=== PATIENT | male | born 1975 | race Caucasian/White ===

== ENCOUNTER 2020-08-13 02:03 | Emergency (ER) | payer OTHER, MEDICAID, SELFPAY ==
[2020-08-13 02:11] VITALS: BP 131/72; PULSE 75; RESP 16; TEMP 36.8; O2SAT 99; BMI 28.8
--- NOTE | 2020-08-13 02:15 | ECG_ITS ---
Test Reason : CHEST PAIN Blood Pressure : / mmHG Vent. Rate : 073 BPM Atrial Rate : 073 BPM P-R Int : 148 ms QRS Dur : 092 ms QT Int : 408 ms P-R-T Axes : 052 020 030 degrees QTc Int : 449 ms Normal sinus rhythm Normal ECG When compared with ECG of 23-AUG-2019 21:38, Premature ventricular complexes are no longer Present Criteria for Inferior infarct are no longer Present Referred By: Wili Canada Electronically Signed By:COLLINS FERNANDO MD
--- NOTE | 2020-08-13 02:15 | XR_ITS ---
EXAMINATION: XR CHEST CLINICAL INFORMATION: Chest pain COMPARISON: None TECHNIQUE: Frontal view of the chest was obtained. FINDINGS: Cardiac leads overlie the chest. The lungs are well expanded. There is no focal consolidation, edema, or effusion. No pneumothorax. The cardiomediastinal silhouette is within normal limits. No acute osseous abnormality. IMPRESSION: No acute pulmonary finding.
[2020-08-13 02:27] LABS: Basophils Percent Auto 0.3 % (0-2); Eosinophils Absolute Auto 0.1 X10*3/uL (0.0-0.4); Hematocrit 45.9 % (42-52); Hemoglobin 15.8 g/dl (14.0-18.0); Imm Gran Abs Auto 0.01 X10*3/uL (0.00-0.03); Imm Gran Pct Auto 0.1 % (0.0-0.4); Lymphocytes Absolute Auto 2.6 X10*3/uL (1.2-4.9); Lymphocytes Percent Auto 38.1 % (20-40); MANUAL DIFF FLAG NO; Mean Corpuscular HGB Conc 34.4 g/dl (31.0-36.0); Mean Corpuscular Hemoglobin 31.9 pg (27.0-33.0); Mean Corpuscular Volume 92.7 fL (80-98); Mean Platelet Volume 8.7 fL (9.4-12.4); Monocytes Absolute Auto 0.8 X10*3/uL (0.1-1.2); Monocytes Percent Auto 11.5 % (2-11); Neutrophils Absolute Auto 3.3 X10*3/uL (2.0-8.3); Platelet Count 195 X10*3/uL (160-400); Red Blood Count 4.95 X10*6/uL (4.60-5.80); Red Cell Distribution Width 11.9 % (11.0-16.0); White Blood Count 6.7 X10*3/uL (4.8-10.8)
--- NOTE | 2020-08-13 02:45 | ED.CHESTPAIN ---
HPI - Chest Pain General Chief Complaint: Chest Pain Stated Complaint: chest pain Time Seen by Provider: 08/13/20 02:15 Mode of arrival: ambulatory History of Present Illness HPI narrative: patient states of intermittent chest pain for the past several months in which he is seeing cardiology for. Patient states chest pain has been intermittent all week. Woke up this evening with substernal chest pain came into emergency department upon arrival to emergency department chest pain resolved. Nonradiating chest pain no nausea no vomiting no diarrhea no diaphoresis Onset: during rest Pain location: substernal Pain radiation: none Severity: moderate Pain scale (0-10): 4 Related Data Allergies Allergy/AdvReac Type Severity Reaction Status Date / Time No Known Allergies Allergy Unverified 07/20/20 17:53 Review of Systems Review of Systems: Constitutional : No Weight loss, No Fever, No Chills, No Night Sweats, No Fatigue, No Malaise ENT/Mouth : No Hearing loss, No Ear Pain, No Nasal Congestion, No Sinus Pain, No Hoarseness, No sore throat, No Rhinorrhea, No Swallowing Difficulty Eyes: No Eye Pain, No Swelling, No Redness, No Foreign Body, No Discharge, No Vision Changes Cardiovascular : pos Chest Pain, pos SOB, no Dyspnea on Exertion, No Orthopnea, No Edema, No Palpitations Respiratory : No Cough, No Sputum, No Wheezing, No Smoke Exposure, No Dyspnea Gastrointestinal : pos Nausea, No Vomiting, No Diarrhea, No abdominal Pain, No Hematochezia, No Melena Genitourinary : No irregular bleeding, No Dysuria, No Urinary Frequency, No Hematuria, No Urinary Incontinence, No Urgency, No Flank Pain, No Urinary Flow Changes, No Hesitancy Musculoskeletal : No joint pain, No Myalgias, No Joint Swelling Skin : No Skin Lesions, No rash Neuro : No Weakness, No Numbness, No Paresthesias, No Loss of Consciousness, No Dizziness, No Headache Psych : No Anxiety/Panic, No Depression, No SI/HI/AH/VH Heme/Lymph: No Bruising, No Bleeding,No Lymphadenopathy Endocrine : No Polyuria, No Polydipsia, No Temperature Intolerance PMFSH Past Medical History Medical History HTN (hypertension) Family History Family History (Updated 08/13/20 @ 02:47 by Wili Canada DO) Other Family history non-contributory Social History Social History Alcohol intake: never Smoking Status: Smoker, status unknown Smoked in Last 30 Days: No Advance Directives: No Advance Directives Information Provided: No Physical Exam Vital Signs: Vital Signs: Vital Signs Temp Pulse Resp BP Pulse Ox 08/13/20 02:11 98.2 F 75 16 131/72 99 Body Mass Index 28.8 vital signs reviewed 99% room air interpreted by me as normal Appearance: Alert. Oriented X3. No acute distress. Eyes: Pupils equal, round and reactive to light. ENT: Pharynx normal. Neck: Normal inspection. Neck supple. No lymph nodes noted. No crepitus CVS: Normal heart rate and rhythm. Pulses normal. Normal S1 and S2 Respiratory: No respiratory distress. Breath sounds normal. No Wheezing. No rales Abdomen: Soft and nontender. No rigidity. No distention. good BS x4 Skin: Skin warm and dry. Normal skin color. Normal skin turgor. Extremities: No lower extremity edema. Neurovascular intact to all extremities. No Lacerations. No Rash Neuro: Oriented X 3. No motor deficit. No sensory deficit. Moving all extermities. No slurred speech.
[2020-08-13 03:56] LABS: Alanine Aminotransferase 38 U/L (0-40); Albumin Level 4.6 g/dL (3.5-5.0); Alkaline Phosphatase 30 U/L (39-117); Anion Gap 15 (12-20); Aspartate Amino Transferase 23 U/L (5-37); Bilirubin Direct 0.2 mg/dL (0.0-0.5); Bilirubin Total 0.6 mg/dL (0.0-1.0); Blood Urea Nitrogen 19 mg/dL (9-16); Calcium 8.8 mg/dL (8.4-10.2); Carbon Dioxide 24 mmol/L (22-29); Chloride 103 mmol/L (96-108); Creatinine Clr Calc Pharmacy 101.6; Estimated Glomerular Filt Rate > 60; Glucose Random 122 mg/dL (60-115); Lipase 57 U/L (8-78); Potassium 3.6 mmol/l (3.3-5.1); Sodium 138 mmol/L (135-145); Total Protein 7.1 g/dL (6.5-8.0)
[2020-08-13 03:59] LABS: Troponin-I High Sensitivity < 3.5 ng/L (<3.5-35.0)
[2020-08-13 04:16] VITALS: BP 137/83; PULSE 58; RESP 18; O2SAT 98
--- NOTE | 2020-08-13 04:16 | ED.CHESTPAIN ---
HPI - Chest Pain General Chief Complaint: Chest Pain Stated Complaint: chest pain Time Seen by Provider: 08/13/20 02:15 Source: patient Mode of arrival: ambulatory History of Present Illness HPI narrative: patient states of chest pain for the past 2-3 days. However states it has been more constant. Denies not the vomiting diarrhea denies diaphoresis denies dizziness. Patient states substernal nonradiating worse with palpation past couple hours now MD complaint: chest pain Timing of current episode: constant Pain location: substernal Pain radiation: none Exacerbating factors: nothing Related Data Allergies Allergy/AdvReac Type Severity Reaction Status Date / Time No Known Allergies Allergy Unverified 07/20/20 17:53 Review of Systems Review of Systems: Constitutional : No Weight loss, No Fever, No Chills, No Night Sweats, No Fatigue, No Malaise ENT/Mouth : No Hearing loss, No Ear Pain, No Nasal Congestion, No Sinus Pain, No Hoarseness, No sore throat, No Rhinorrhea, No Swallowing Difficulty Eyes: No Eye Pain, No Swelling, No Redness, No Foreign Body, No Discharge, No Vision Changes Cardiovascular : pos Chest Pain, pos SOB, no Dyspnea on Exertion, No Orthopnea, No Edema, No Palpitations Respiratory : No Cough, No Sputum, No Wheezing, No Smoke Exposure, No Dyspnea Gastrointestinal : pos Nausea, No Vomiting, No Diarrhea, No abdominal Pain, No Hematochezia, No Melena Genitourinary : No irregular bleeding, No Dysuria, No Urinary Frequency, No Hematuria, No Urinary Incontinence, No Urgency, No Flank Pain, No Urinary Flow Changes, No Hesitancy Musculoskeletal : No joint pain, No Myalgias, No Joint Swelling Skin : No Skin Lesions, No rash Neuro : No Weakness, No Numbness, No Paresthesias, No Loss of Consciousness, No Dizziness, No Headache Psych : No Anxiety/Panic, No Depression, No SI/HI/AH/VH Heme/Lymph: No Bruising, No Bleeding,No Lymphadenopathy Endocrine : No Polyuria, No Polydipsia, No Temperature Intolerance [facility], [facility] Past Medical History Medical History HTN (hypertension) Family History Family History (Updated 08/13/20 @ 02:47 by Wili Canada DO) Other Family history non-contributory Social History Social History Alcohol intake: never Smoking Status: Smoker, status unknown Smoked in Last 30 Days: No Advance Directives: No Advance Directives Information Provided: No Physical Exam Vital Signs: Vital Signs: Vital Signs Temp Pulse Resp BP Pulse Ox 08/13/20 04:16 58 18 137/83 98 08/13/20 02:11 98.2 F 75 16 131/72 99 Body Mass Index 28.8 vital signs reviewed pulse ox 99% room air on room air interpreted as normal by me Appearance: Alert. Oriented X3. No acute distress. Eyes: Pupils equal, round and reactive to light. ENT: Pharynx normal. Neck: Normal inspection. Neck supple. No lymph nodes noted. No crepitus CVS: Normal heart rate and rhythm. Pulses normal. Normal S1 and S2 Respiratory: No respiratory distress. Breath sounds normal. No Wheezing. No rales Abdomen: Soft and nontender. No rigidity. No distention. good BS x4 Skin: Skin warm and dry. Normal skin color. Normal skin turgor. Extremities: No lower extremity edema. Neurovascular intact to all extremities. No Lacerations. No Rash { right upper hand with slight edema no erythema healing abrasion and puncture wounds. Located to the dorsum} Neuro: Oriented X 3. No motor deficit. No sensory deficit. Moving all extermities. No slurred speech. MDM - Chest Pain Medical Records Data Attestation: I reviewed the patient's medical records. Lab Data Attestation: I reviewed the patient's lab results. Result diagrams: 08/13/20 02:20 08/13/20 02:20 Labs: Lab Results 08/13/20 08/13/20 08/13/20 Range/Units 02:20 02:20 02:20 WBC 6.7 (4.8-10.8) X10*3/uL RBC 4.95 (4.60-5.80) X10*6/uL Hgb 15.8 (14.0-18.0) g/dl Hct 45.9 (42-52) % MCV 92.7 (80-98) fL MCH 31.9 (27.0-33.0) pg MCHC 34.4 (31.0-36.0) g/dl RDW 11.9 (11.0-16.0) % Plt Count 195 (160-400) X10*3/uL MPV 8.7 L (9.4-12.4) fL Immature Gran % (Auto) 0.1 (0.0-0.4) % Neut % (Auto) 49.0 (45-73) % Lymph % (Auto) 38.1 (20-40) % Braxton % (Auto) 11.5 H (2-11) % Eos % (Auto) 1.0 (0-4) % Baso % (Auto) 0.3 (0-2) % Lymph # (Auto) 2.6 (1.2-4.9) X10*3/uL Braxton # (Auto) 0.8 (0.1-1.2) X10*3/uL Eos # (Auto) 0.1 (0.0-0.4) X10*3/uL Baso # (Auto) 0.0 (0.0-0.2) X10*3/uL Abs Immat Gran (auto) 0.01 (0.00-0.03) X10*3/uL Absolute Neuts (auto) 3.3 (2.0-8.3) X10*3/uL Absolute Nucleated RBC 0.000 (0.0-0.012) X10*3/uL Nucleated RBC % (auto) 0.0 (0.0-0.2) /100WBC Sodium 138 (135-145) mmol/L Potassium 3.6 (3.3-5.1) mmol/l Chloride 103 (96-108) mmol/L Carbon Dioxide 24 (22-29) mmol/L Anion Gap 15 (12-20) BUN 19 H (9-16) mg/dL Creatinine 0.96 (0.5-1.4) mg/dL Estim Creat Clear Calc 101.6 Estimated GFR > 60 Random Glucose 122 H (60-115) mg/dL Calcium 8.8 (8.4-10.2) mg/dL Total Bilirubin 0.6 (0.0-1.0) mg/dL Direct Bilirubin 0.2 (0.0-0.5) mg/dL AST 23 (5-37) U/L ALT 38 (0-40) U/L Alkaline Phosphatase 30 L (39-117) U/L Troponin I High Sens < 3.5 (<3.5-35.0) ng/L Total Protein 7.1 (6.5-8.0) g/dL Albumin 4.6 (3.5-5.0) g/dL Lipase 57 (8-78) U/L ECG Data ECG #1: Attestation: I personally reviewed and interpreted this ECG as follows: Interpretation: normal sinus rhythm. 73 beats per minute. Leftward axis. Normal ST-T segments Discharge Plan Discharge Clinical Impression: Costochondritis, Chest wall pain Patient Disposition: Home, Self-Care Instructions: Chest Pain (ED), Costochondritis (ED) Additional Instructions: Thank you for visiting the emergency department today. If your symptoms worsen or do not resolve completely please return to the emergency department immediately or call 911. if he have any questions please call your primary care physician Referrals: [facility] [Provider Group] - 2 days Interventions: ED Discharge Assessment Last Done: 08/13/20 04:48 Discharge Date/Time: 08/13/20 04:48
== END 2020-08-13 04:48 | disposition home or self-care (01) ==
PROVIDERS: Emergency Provider Emergency Medicine; PCP Physician Assistant Medical
DX: M94.0 Chondrocostal junction syndrome [Tietze] (principal); R07.89 Other chest pain; I10 Essential (primary) hypertension
CPT/HCPCS: 36415; 71045; 80048; 80076; 83690; 84484; 85025; 93005; 99283; 99285

== ENCOUNTER 2020-09-27 12:45 | Outpatient (REF) | payer OTHER, SELFPAY | END 2020-09-27 12:46 | disposition home or self-care (01) | LOC: HO.LAB 12:45 | PROVIDERS: Visit Provider Internal Medicine | DX: Z20.828 Contact with and (suspected) exposure to other viral communicable diseases (principal) | CPT/HCPCS: C9803; U0003 ==

== ENCOUNTER 2020-11-16 16:42 | Outpatient (REF) | payer OTHER, SELFPAY | END 2020-11-16 16:43 | disposition home or self-care (01) | LOC: HO.LAB 16:42 | PROVIDERS: Visit Provider Internal Medicine | DX: Z20.822 Contact with and (suspected) exposure to COVID-19 (principal) | CPT/HCPCS: 36415; C9803; U0003 ==

== ENCOUNTER 2021-01-02 11:13 | Emergency (ER) | payer OTHER, MEDICAID, SELFPAY ==
--- NOTE | ~2021-01-02 | XR_ITS ---
EXAMINATION: XR CHEST CLINICAL INFORMATION: Chest wall pain COMPARISON: Chest x-ray on 08/13/2020 TECHNIQUE: 2 views of the chest were obtained. FINDINGS: No significant abnormality is noted involving the heart, lungs, mediastinum, bony thorax or soft tissues. XR/XR chest 2V IMPRESSION: Unremarkable examination.
[2021-01-02 11:17] VITALS: BP 144/83; PULSE 74; RESP 16; TEMP 36.4; O2SAT 97; BMI 28.1
--- NOTE | 2021-01-02 13:07 | ED_ITS ---
HPI - General Adult General Chief complaint: General Medical Stated complaint: rib pain Time Seen by Provider: 01/02/21 11:38 Source: patient Mode of arrival: ambulatory Limitations: language barrier (Primarily [place]-speaking thus regulator operator present for all interactions) History of Present Illness HPI narrative: This is a pleasant 45-year-old male who is primarily [place]- speaking with history of hypertension who presents ambulatory via triage with complaint of pain to the picture/sternal region of his chest that has been going on for past 6 months. 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 And has been seen by his primary care doctor for this who did a workup as well as referred him to [facility] where he reports he was seen at [facility] a month ago and had cardiac workup in told by cardiology at [facility] that this was not cardiac related and referral was made to PT for patient states he has an appointment coming up on the 11 of this month however still when he does certain movements at work he gets this pain thus leading to him coming here today. There is no cough or URI, no lower extremity swelling, no shortness of breath. No dyspnea on exertion. Onset (ago): month(s) (6+ months. ) Location: chest Radiation: non-radiation Severity: mild Severity scale (1-10): 3 Quality: aching (Only during certain activities where he is lifting boxes at work but none at this time at rest.) Pain Consistency: intermittent and now resolved Relieving factors: cold therapy and immobilization Exacerbating factors: movement Associated symptoms: denies other symptoms Treatments prior to arrival: NSAID (States he has been given naproxen by his primary care doctor which she takes sometimes.) Related Data Previous Rx's Medication Instructions Recorded cyclobenzaprine 5 mg PO BEDTIME PRN #14 tab 01/02/21 methylprednisolone [Methylpred DP] 4 mg PO PER PKG DIR #21 ea 01/02/21 Allergies Allergy/AdvReac Type Severity Reaction Status Date / Time No Known Allergies Allergy Unverified 07/20/20 17:53 Review of Systems Review of Systems: Constitutional: No Weight loss, No Fever, No Chills, No Night Sweats, No Fatigue, No Malaise ENT/Mouth: No Hearing loss, No Ear Pain, No Nasal Congestion, No Sinus Pain, No Hoarseness, No sore throat, No Rhinorrhea, No Swallowing Difficulty Eyes: No Eye Pain, No Swelling, No Redness, No Foreign Body, No Discharge, No Vision Changes Cardiovascular: Chest wall pain as noted per HPI, No SOB, No Dyspnea on Exertion, No Orthopnea, No Edema, No Palpitations Respiratory: No Cough, No Sputum, No Wheezing, No Smoke Exposure, No Dyspnea Gastrointestinal: No Nausea, No Vomiting, No Diarrhea, No Constipation, No abdominal Pain, No Hematochezia, No Melena Genitourinary: No Dysuria, No Urinary Frequency, No Hematuria, No Urinary Incontinence, No Urgency, No Flank Pain, No Urinary Flow Changes, No Hesitancy Musculoskeletal: No joint pain, No Myalgias, No Joint Swelling Skin: No Skin Lesions, No rash Neuro: No Weakness, No Numbness, No Paresthesias, No Loss of Consciousness, No Dizziness, No Headache Psych: + Anxiety about his health sometimes, No Depression, No SI/HI/AH/VH, No Social Issues Heme/Lymph: No Bruising, No Bleeding,No Lymphadenopathy Endocrine: No Polyuria, No Polydipsia, No Temperature Intolerance Yes all other systems are reviewed and are negative [facility] Past Medical History Medical History HTN (hypertension) Family History Family History (Updated 08/13/20 @ 02:47 by Wili Canada DO) Other Family history non-contributory Social History Social History Alcohol intake: never Smoking Status: Smoker, status unknown Advance Directives: No Advance Directives Information Provided: No Physical Exam Vital Signs: Vital Signs: Last Vital Signs Temp 97.6 F 01/02/21 11:17 Pulse 74 01/02/21 11:17 Resp 16 01/02/21 11:17 BP 144/83 H 01/02/21 11:17 Pulse Ox 97 01/02/21 11:17 Body Mass Index 28.1 Reviewed Const: General: cooperative and healthy appearing; No acute distress or intoxicated appearing Nutritional Appearance: average body habitus Orientation/consciousness: patient oriented x3 HENMT: Head: Yes normal to inspection Ears: hearing grossly normal bilaterally Eyes: General: appearance normal, both eyes and all related structures Visual Barrientos: normal visual barrientos by confrontation Neck: Neck: Yes normal visual inspection, No positive Brudzinski's sign, No positive Kernig's sign and No tender Thyroid: Thyroid normal Chest: Chest palpation & inspection: normal inspection of the chest and tenderness (Reproducible palpation and exercises during exam involving pectoral muscle) pectoral muscle, sternum and costochondral junction Resp: Effort & Inspection: normal respiratory effort Auscultation: clear to auscultation bilaterally Cardio: Jugular venous distension: no JVD Palpation: normal PMI Rate: regular rate Rhythm: regular rhythm Heart sounds: S1 normal heart sound present and S2 normal heart sound present GI: Inspection: Yes normal to inspection Palpation (GI): Soft to palpation Percussion: Yes normal to percussion Auscultation: normal bowel sounds : General: Yes no CVA tenderness Back/Spine/Pelvis: Back: no CVA tenderness Skin: General skin exam: no rashes or lesions noted Neuro: General: patient oriented x3 Extrem: General: Yes normal to inspection Medical Decision Making MDM Narrative Medical decision making narrative: A P of 45-year-old male with history of hypertension on monotherapy blood pressure well controlled presenting with findings consistent with costochondritis which he contributes to repetitive movement at work he has had workup here in August for same as well he reports recently through his primary care doctor and Cardiology at [facility] these records are requested with patient's consent however chest x-ray and EKG are nondiagnostic here given the exam findings this is consistent with costochondritis. Will add on short course steroid and muscle relaxant he has PT appointment coming up apparently at [facility] on the 11 of January (in 9 days). In the meantime he will follow-up with his primary care doctor as well as [facility] for further management. At this time no indication to do any additional cardiac workup. He is PERC negative, heart rate 74, pulse ox 98% without any upper respiratory symptoms, well as negative. Medical Records Medical records reviewed: Yes I reviewed the patient's medical records. Medical records narrative: Patient was here on August 13 for similar complaint he had a full cardiac workup including EKG, chest x-ray and cardiac enzymes which was overall unrevealing. 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 FINDINGS: No significant abnormality is noted involving the heart, lungs, mediastinum, bony thorax or soft tissues. XR/XR chest 2V IMPRESSION: Unremarkable examination. Dictated By:DEREK JUAREZ MDSigned By:<Electronically signed by DEREK JUAREZ MD in OV>01/02/21 1205 DD/ 1150TD/TT: Proofing Machine Operator: RAFAELA ECG Data Interpretation: Normal sinus rhythm Normal ECG Rate 60 When compared with ECG of 13-AUG-2020 02:03, No significant change was found Discharge Plan Discharge Clinical Impression: Costochondritis Patient Disposition: Home, Self-Care Instructions: Costochondritis (ED) Additional Instructions: Please follow-up with your primary care doctor as well as your upcoming appointment at [facility] on the 11 of January Follow-up with [facility] as discussed Taking naproxen as prescribed I will start a short course of steroid to help with inflammation and pain You can also take a muscle relaxant at night as needed (Flexeril) however do not take this medication before working or operating motor vehicle. Return if any concerns or worsening symptoms Follow-up as planned Thank you Prescriptions: New methylprednisolone [Methylpred DP] 4 mg tablets,dose pack 4 mg PO PER PKG DIR Qty: 21 RF: 0 cyclobenzaprine 5 mg tablet 5 mg PO BEDTIME PRN (Reason: muscle spasm) Qty: 14 RF: 0 Referrals: Jacquelyn Arnold PA [Primary Care Provider] - 1 week
--- NOTE | 2021-01-02 13:32 | ECG_ITS ---
Test Reason : CHEST WALL PAIN Blood Pressure : / mmHG Vent. Rate : 060 BPM Atrial Rate : 060 BPM P-R Int : 148 ms QRS Dur : 082 ms QT Int : 414 ms P-R-T Axes : 026 004 017 degrees QTc Int : 414 ms Normal sinus rhythm Normal ECG When compared with ECG of 13-AUG-2020 02:03, No significant change was found Referred By: Mu Stone Electronically Signed By:MEE CORREA
== END 2021-01-02 14:20 | disposition home or self-care (01) ==
PROVIDERS: Emergency Provider Emergency Medicine; PCP Physician Assistant Medical
DX: Z04.2 Encounter for examination and observation following work accident (principal); M94.0 Chondrocostal junction syndrome [Tietze]; I10 Essential (primary) hypertension
CPT/HCPCS: 71046; 93005; 99283

== ENCOUNTER 2021-06-10 12:26 | Emergency (ER) | payer OTHER, MEDICAID, SELFPAY ==
--- NOTE | ~2021-06-10 | XR_ITS ---
EXAMINATION: XR CHEST CLINICAL INFORMATION: Right sided chest pain COMPARISON: Prior chest January 2021 TECHNIQUE: Frontal view of the chest was obtained. FINDINGS: No significant abnormality is noted involving the heart, lungs, mediastinum, bony thorax or soft tissues. XR/XR chest 1V IMPRESSION: Unremarkable examination.
[2021-06-10 12:40] VITALS: BP 128/84; PULSE 72; RESP 16; TEMP 36.4; O2SAT 98; BMI 28.1
--- NOTE | 2021-06-10 14:48 | ED_ITS ---
HPI - Chest Pain General Chief Complaint: Chest Pain Stated Complaint: Muscular pain Time Seen by Provider: 06/10/21 14:48 Source: patient Mode of arrival: ambulatory Limitations: no limitations History of Present Illness HPI narrative: Patient presents to ED for right-sided chest pain call for long time ?. Patient states chest pain is worse when he moves right upper extremity and moving torso. Denies any recent trauma to chest. Patient denies any pleuritic chest pain. Patient states right-sided chest pain for months. Related Data Previous Rx's Medication Instructions Recorded cyclobenzaprine 5 mg tablet 5 mg PO BEDTIME PRN #14 tab 01/02/21 methylprednisolone 4 mg tablets in 4 mg PO PER PKG DIR #21 ea 01/02/21 a dose pack (Methylpred DP) naproxen 500 mg tablet 500 mg PO BID PRN #20 tab 06/10/21 Allergies Allergy/AdvReac Type Severity Reaction Status Date / Time No Known Allergies Allergy Unverified 07/20/20 17:53 Review of Systems Review of Systems: Yes all other systems are reviewed and are negative Constitutional: Constitutional: Reports as per HPI and Reports no additional constitutional complaints Eyes: Eyes: Reports as per HPI and Reports no additional eye complaints ENT: Reports system reviewed and no additional complaints, except as documented and Reports as per HPI Cardiovascular: Cardiovascular: Reports as per HPI, Reports no additional cardiovascular complaints and Reports chest pain (Right-sided) Respiratory: Respiratory: Reports as per HPI and Reports no additional respiratory complaints Gastrointestinal: Gastrointestinal: Reports no additional gastrointestinal complaints Genitourinary: Genitourinary: Reports no additional male genitourinary complaints and Reports as per HPI Musculoskeletal: Musculoskeletal: Reports no additional musculoskeletal complaints and Reports as per HPI Neurologic: Reports system reviewed and no additional complaints, except as documented and Reports as per HPI Psychiatric: Psychiatric: Reports no additional psychiatric complaints and Reports as per HPI PMF Past Medical History Medical History HTN (hypertension) Family History Family History (Updated 08/13/20 @ 02:47 by Wili Canada DO) Other Family history non-contributory Social History Social History Alcohol intake: never Advance Directives: No Advance Directives Information Provided: Yes Physical Exam Vital Signs: Vital Signs: Last Vital Signs Temp 97.7 F 06/10/21 15:50 Pulse 60 06/10/21 15:50 Resp 18 06/10/21 15:50 BP 137/82 06/10/21 15:50 Pulse Ox 99 06/10/21 15:50 Body Mass Index 28.1 Const: General: cooperative, healthy appearing, comfortable, no acute distress, well developed, alert, awake and Physically active O rientation/consciousness: patient oriented x3 HENMT: Head: Yes normal to inspection and Yes No palpable skull fracture present Eyes: General: appearance normal, both eyes and all related structures Neck: Neck: Yes normal visual inspection, Yes full ROM, Yes no lymphadenopathy, Yes no meningeal signs, Yes trachea midline, Yes supple and No tender Chest: Chest palpation & inspection: normal inspection of the chest Chest/axillae images: 1. Positive for tenderness on palpation. Negative for any rash. Positive for pain of range of motion of right upper extremity and movement of torso. Resp: Effort & Inspection: normal respiratory effort and able to speak in complete sentences Auscultation: clear to auscultation bilaterally Cardio: Jugular venous distension: no JVD Heart sounds: S1 normal heart sound present and S2 normal heart sound present GI: Inspection: Yes normal to inspection and No abdominal wall ecchymosis Palpation (GI): Soft to palpation, not firm, nontender, no guarding and not rigid : General: No CVA tenderness and Yes no CVA tenderness Back/Spine/Pelvis: Back: no CVA tenderness, No CVA tenderness and No back tenderness Skin: General skin exam: no rashes or lesions noted and elasticity normal Neuro: General: patient oriented x3, gait normal, no meningeal signs and CN's II-XI intact bilaterally Cranial nerves: Yes CN's II-XII intact bilaterally Extrem: Other: Lower extremities negative for swelling, pitting edema, or calf tenderness. General: Yes normal to inspection and Yes full ROM Psych: Appearance: grossly normal, well kempt and not disheveled Course Course Course Narrative: Pain mostly muscular but will do cardiac evaluation. Reevaluation(s) Reevaluation #1: EKG negative for STEMI. Troponin negative. D-dimer negative. Perc score is 0. Chest x-ray negative for pneumonia. Awaiting for COVID swab results Time: 15:35 Reevaluation #2: COVID swab negative Time: 17:40 MDM - Chest Pain MDM Narrative Medical decision making narrative: Chest wall pain Lab Data Result diagrams: 06/10/21 15:35 06/10/21 15:35 Labs: Lab Results 06/10/21 06/10/21 06/10/21 Range/Units 15:35 15:35 15:35 WBC 6.6 (4.8-10.8) X10*3/uL RBC 5.00 (4.60-5.80) X10*6/uL Hgb 15.9 (14.0-18.0) g/dl Hct 46.3 (42-52) % MCV 92.6 (80-98) fL MCH 31.8 (27.0-33.0) pg MCHC 34.3 (31.0-36.0) g/dl RDW 12.1 (11.0-16.0) % Plt Count 195 (160-400) X10*3/uL MPV 8.6 L (9.4-12.4) fL Immature Gran % (Auto) 0.2 (0.0-0.4) % Neut % (Auto) 61.8 (45-73) % Lymph % (Auto) 29.4 (20-40) % Laurens % (Auto) 7.8 (2-11) % Eos % (Auto) 0.6 (0-4) % Baso % (Auto) 0.2 (0-2) % Lymph # (Auto) 1.9 (1.2-4.9) X10*3/uL Laurens # (Auto) 0.5 (0.1-1.2) X10*3/uL Eos # (Auto) 0.0 (0.0-0.4) X10*3/uL Baso # (Auto) 0.0 (0.0-0.2) X10*3/uL Abs Immat Gran (auto) 0.01 (0.00-0.03) X10*3/uL Absolute Neuts (auto) 4.1 (2.0-8.3) X10*3/uL Absolute Nucleated RBC 0.000 (0.0-0.012) X10*3/uL Nucleated RBC % (auto) 0.0 (0.0-0.2) /100WBC PT (9.9-13.0) SEC INR (0.9-1.1) APTT (24.1-38.0) SEC D-Dimer < 200 NG/ML Sodium 141 (135-145) mmol/L Potassium 4.5 (3.3-5.1) mmol/L Chloride 106 (96-108) mmol/L Carbon Dioxide 26 (22-29) mmol/L Anion Gap 14 (12-20) BUN 14 (9-16) mg/dL Creatinine 0.98 (0.5-1.4) mg/dL Estim Creat Clear Calc 97.2 Estimated GFR > 60 Random Glucose 92 (60-115) mg/dL Calcium 9.8 D (8.4-10.2) mg/dL Total Bilirubin 0.6 (0.0-1.0) mg/dL AST 21 (5-37) U/L ALT 31 (0-40) U/L Alkaline Phosphatase 35 L (39-117) U/L Troponin I High Sens (<3.5-35.0) ng/L Total Protein 7.5 (6.5-8.0) g/dL Albumin 4.7 (3.5-5.0) g/dL Coronavirus (PCR) (Negative) Influenza Type A (PCR) (Negative) Influenza Type B (PCR) (Negative) RSV RNA Qual (PCR) (Negative) 06/10/21 06/10/21 06/10/21 Range/Units 15:35 15:35 15:35 WBC (4.8-10.8) X10*3/uL RBC (4.60-5.80) X10*6/uL Hgb (14.0-18.0) g/dl Hct (42-52) % MCV (80-98) fL MCH (27.0-33.0) pg MCHC (31.0-36.0) g/dl RDW (11.0-16.0) % Plt Count (160-400) X10*3/uL MPV (9.4-12.4) fL Immature Gran % (Auto) (0.0-0.4) % Neut % (Auto) (45-73) % Lymph % (Auto) (20-40) % Laurens % (Auto) (2-11) % Eos % (Auto) (0-4) % Baso % (Auto) (0-2) % Lymph # (Auto) (1.2-4.9) X10*3/uL Laurens # (Auto) (0.1-1.2) X10*3/uL Eos # (Auto) (0.0-0.4) X10*3/uL Baso # (Auto) (0.0-0.2) X10*3/uL Abs Immat Gran (auto) (0.00-0.03) X10*3/uL Absolute Neuts (auto) (2.0-8.3) X10*3/uL Absolute Nucleated RBC (0.0-0.012) X10*3/uL Nucleated RBC % (auto) (0.0-0.2) /100WBC PT 12.1 (9.9-13.0) SEC INR 1.1 (0.9-1.1) APTT 35.5 (24.1-38.0) SEC D-Dimer NG/ML Sodium (135-145) mmol/L Potassium (3.3-5.1) mmol/L Chloride (96-108) mmol/L Carbon Dioxide (22-29) mmol/L Anion Gap (12-20) BUN (9-16) mg/dL Creatinine (0.5-1.4) mg/dL Estim Creat Clear Calc Estimated GFR Random Glucose (60-115) mg/dL Calcium (8.4-10.2) mg/dL Total Bilirubin (0.0-1.0) mg/dL AST (5-37) U/L ALT (0-40) U/L Alkaline Phosphatase (39-117) U/L Troponin I High Sens < 3.5 (<3.5-35.0) ng/L Total Protein (6.5-8.0) g/dL Albumin (3.5-5.0) g/dL Coronavirus (PCR) NEGATIVE (Negative) Influenza Type A (PCR) NEGATIVE (Negative) Influenza Type B (PCR) NEGATIVE (Negative) RSV RNA Qual (PCR) NEGATIVE (Negative) ECG Data ECG #1: Interpretation: Normal sinus rhythm. Ventricular rate 72. Pr interval 146. QRS 80. QTC 422. Negative STEMI Discharge Plan Discharge Clinical Impression: Atypical chest pain Patient Disposition: Home, Self-Care Instructions: Chest Pain (ED), Chest Wall Pain (ED) Additional Instructions: Return to the ED for any worsening chest pain, shortness of breath, swelling of lower extremities, calf pain, coughing up blood, dizziness, weakness, fever, or chills. EKG and troponin came back negative for heart attack. Her D-dimer came back negative for risk of blood clot. COVID swab came back negative. Chest x- ray negative for pneumonia. Please follow-up with PCP Prescriptions: New naproxen 500 mg tablet 500 mg PO BID PRN (Reason: pain) Qty: 20 RF: 0 No Action methylprednisolone [Methylpred DP] 4 mg tablets,dose pack 4 mg PO PER PKG DIR Qty: 21 RF: 0 cyclobenzaprine 5 mg tablet 5 mg PO BEDTIME PRN (Reason: muscle spasm) Qty: 14 RF: 0 Interventions: ED Discharge Assessment Last Done: 06/10/21 17:57 Discharge Date/Time: 06/10/21 17:58 Print Language: Monegasque
[2021-06-10 15:39] LABS: MANUAL DIFF FLAG NO
[2021-06-10 15:41] LABS: Basophils Percent Auto 0.2 % (0-2); Eosinophils Percent Auto 0.6 % (0-4); Hematocrit 46.3 % (42-52); Hemoglobin 15.9 g/dl (14.0-18.0); Imm Gran Abs Auto 0.01 X10*3/uL (0.00-0.03); Imm Gran Pct Auto 0.2 % (0.0-0.4); Lymphocytes Absolute Auto 1.9 X10*3/uL (1.2-4.9); Lymphocytes Percent Auto 29.4 % (20-40); Mean Corpuscular HGB Conc 34.3 g/dl (31.0-36.0); Mean Corpuscular Hemoglobin 31.8 pg (27.0-33.0); Mean Corpuscular Volume 92.6 fL (80-98); Mean Platelet Volume 8.6 fL (9.4-12.4); Monocytes Absolute Auto 0.5 X10*3/uL (0.1-1.2); Monocytes Percent Auto 7.8 % (2-11); Neutrophils Absolute Auto 4.1 X10*3/uL (2.0-8.3); Neutrophils Percent Auto 61.8 % (45-73); Platelet Count 195 X10*3/uL (160-400); Red Cell Distribution Width 12.1 % (11.0-16.0); White Blood Count 6.6 X10*3/uL (4.8-10.8)
[2021-06-10 15:46] LABS: INTERNATIONAL NORM RATIO 1.1 (0.9-1.1); Prothrombin Time 12.1 SEC (9.9-13.0)
[2021-06-10 15:49] LABS: Partial Thromboplastin Time 35.5 SEC (24.1-38.0)
[2021-06-10 15:50] VITALS: BP 137/82; PULSE 60; RESP 18; TEMP 36.5; O2SAT 99
[2021-06-10 15:57] LABS: D Dimer < 200 NG/ML
[2021-06-10 16:05] LABS: Alanine Aminotransferase 31 U/L (0-40); Albumin Level 4.7 g/dL (3.5-5.0); Alkaline Phosphatase 35 U/L (39-117); Anion Gap 14 (12-20); Aspartate Amino Transferase 21 U/L (5-37); Bilirubin Total 0.6 mg/dL (0.0-1.0); Blood Urea Nitrogen 14 mg/dL (9-16); Calcium 9.8 mg/dL (8.4-10.2); Carbon Dioxide 26 mmol/L (22-29); Chloride 106 mmol/L (96-108); Creatinine Clr Calc Pharmacy 97.2; Estimated Glomerular Filt Rate > 60; Glucose Random 92 mg/dL (60-115); Potassium 4.5 mmol/L (3.3-5.1); Sodium 141 mmol/L (135-145); Total Protein 7.5 g/dL (6.5-8.0)
[2021-06-10 16:08] LABS: Troponin-I High Sensitivity < 3.5 ng/L (<3.5-35.0)
[2021-06-10 16:25] LABS: Influenza A PCR NEGATIVE (Negative); Influenza B PCR NEGATIVE (Negative); Resp Syncy Virus RNA Qual PCR NEGATIVE (Negative); SARS COV2 PCR INHOUSE NEGATIVE (Negative)
== END 2021-06-10 17:58 | disposition home or self-care (01) ==
PROVIDERS: Physician Assistant; Emergency Provider Emergency Medicine Emergency Medical Services
DX: R07.89 Other chest pain (principal); Z20.822 Contact with and (suspected) exposure to COVID-19; I10 Essential (primary) hypertension
CPT/HCPCS: 0241U; 36415; 71045; 80053; 84484; 85025; 85379; 85610; 85730; 99283

== ENCOUNTER 2021-10-06 05:52 | Emergency (ER) | payer OTHER, MEDICAID, SELFPAY ==
--- NOTE | ~2021-10-06 | XR_ITS ---
EXAMINATION: XR CHEST CLINICAL INFORMATION: Chest pain COMPARISON: 06/10/2021 TECHNIQUE: Frontal view of the chest was obtained. FINDINGS: Normal symmetric lung volumes. No parenchymal consolidation. No pleural effusion. No pneumothorax. Cardiomediastinal silhouette and pulmonary vascularity are within normal limits. No acute osseous abnormalities. XR/XR chest 1V IMPRESSION: No acute findings.
[2021-10-06 06:14] VITALS: BP 126/83; PULSE 63; RESP 18; TEMP 36.3; O2SAT 99; BMI 28.8
--- NOTE | 2021-10-06 06:19 | ECG_ITS ---
Test Reason : cp Blood Pressure : / mmHG Vent. Rate : 066 BPM Atrial Rate : 066 BPM P-R Int : 154 ms QRS Dur : 088 ms QT Int : 402 ms P-R-T Axes : 031 -01 013 degrees QTc Int : 421 ms Normal sinus rhythm Normal ECG When compared with ECG of 02-JAN-2021 13:46, No significant change was found Referred By: Generic ED Physician Electronically Signed By:MEE CORREA
[2021-10-06 06:33] LABS: MANUAL DIFF FLAG NO
[2021-10-06 06:34] LABS: Basophils Percent Auto 0.2 % (0-2); Eosinophils Absolute Auto 0.1 X10*3/uL (0.0-0.4); Eosinophils Percent Auto 2.2 % (0-4); Hematocrit 45.6 % (42.0-52.0); Hemoglobin 15.7 g/dl (14.0-18.0); Imm Gran Abs Auto 0.01 X10*3/uL (0.00-0.03); Imm Gran Pct Auto 0.2 % (0.0-0.4); Lymphocytes Absolute Auto 1.6 X10*3/uL (1.2-4.9); Lymphocytes Percent Auto 35.2 % (20-40); Mean Corpuscular HGB Conc 34.4 g/dl (31.0-36.0); Mean Corpuscular Hemoglobin 31.7 pg (27.0-33.0); Mean Corpuscular Volume 91.9 fL (80.0-98.0); Mean Platelet Volume 8.7 fL (9.4-12.4); Monocytes Absolute Auto 0.5 X10*3/uL (0.1-1.2); Neutrophils Absolute Auto 2.4 x10*3/uL (2.0-8.3); Neutrophils Percent Auto 52.2 % (45-73); Platelet Count 166 X10*3/uL (160-400); Red Blood Count 4.96 X10*6/uL (4.60-5.80); Red Cell Distribution Width 11.9 % (11.0-16.0); White Blood Count 4.6 X10*3/uL (4.8-10.8)
--- NOTE | 2021-10-06 06:34 | PC.NURSE ---
EKG and labs obtained by [facility].
[2021-10-06 06:46] LABS: Anion Gap 11 (12-20); Blood Urea Nitrogen 15 mg/dL (9-16); Calcium 9.4 mg/dL (8.4-10.2); Carbon Dioxide 27 mmol/L (22-29); Chloride 106 mmol/L (96-108); Creatinine Clr Calc Pharmacy 95.5; Estimated Glomerular Filt Rate > 60; Glucose Random 136 mg/dL (60-115); Sodium 140 mmol/L (135-145)
[2021-10-06 06:53] LABS: Troponin-I High Sensitivity < 3.5 ng/L (<3.5-35.0)
--- NOTE | 2021-10-06 07:33 | ED.CHESTPAIN ---
HPI - Chest Pain General Chief Complaint: Chest Pain Stated Complaint: chest pain Time Seen by Provider: 10/06/21 07:22 Source: patient Mode of arrival: ambulatory History of Present Illness HPI narrative: This is a very pleasant of 46 years old male presented to the emergency department with the dry side the chest pain reproducible with palpation, this chest pain has been ongoing is been seen by his primary care physician in this emergency department in the past for this complain MD complaint: chest pain Onset (ago): week(s) Prior episodes: Yes Onset: during rest Pain location: right chest Pain radiation: none Quality: aching Risk Factors Coronary artery disease risk factors: hypertension Related Data Previous Rx's Medication Instructions Recorded cyclobenzaprine 5 mg tablet 5 mg PO BEDTIME PRN #14 tab 01/02/21 methylprednisolone 4 mg tablets in 4 mg PO PER PKG DIR #21 ea 01/02/21 a dose pack (Methylpred DP) naproxen 500 mg tablet 500 mg PO BID PRN #20 tab 06/10/21 oxycodone 5 mg capsule 5 mg PO Q8H PRN #12 cap 10/06/21 Allergies Allergy/AdvReac Type Severity Reaction Status Date / Time No Known Allergies Allergy Unverified 07/20/20 17:53 [facility] Past Medical History Medical History HTN (hypertension) Family History Family History Other Family history non-contributory Social History Social History Alcohol intake: never Advance Directives: No Advance Directives Information Provided: Yes Physical Exam Vital Signs: Vital Signs: Last Vital Signs Temp 97.3 F 10/06/21 06:14 Pulse 63 10/06/21 06:14 Resp 18 10/06/21 06:14 BP 126/83 10/06/21 06:14 Pulse Ox 99 10/06/21 06:14 BMI result Body Mass Index 28.8 Const: Other: He looks well is not toxic-appearing General: cooperative, comfortable and no acute distress Orientation/consciousness: oriented to person, oriented to place and patient oriented x3 Limitations: no limitations HENMT: Head: Yes normal to inspection Mouth: Normal oral and palatal mucosa present Neck: Neck: Yes normal visual inspection and Yes full ROM Chest: Chest palpation & inspection: normal inspection of the chest Resp: Effort & Inspection: normal respiratory effort Cardio: Jugular venous distension: no JVD Rate: regular rate GI: Inspection: Yes normal to inspection Palpation (GI): Soft to palpation, not firm, nontender and no guarding Skin: General skin exam: no rashes or lesions noted and elasticity normal Rashes: no rashes Neuro: General: oriented to person, oriented to place and patient oriented x3 MDM - Chest Pain MDM Narrative Medical decision making narrative: his high sensitive troponin is negative after a few days or chest pain his electrocardiogram is normal chest x-ray is normal, the patient at the similar symptoms in the past, is taking anti-inflammatory Motrin and naproxen he states that these no relieving the pain, I would room a 8 oxycodone to get him through the weekend until see his PCP Lab Data Result diagrams: 10/06/21 06:27 10/06/21 06:27 Labs: Lab Results 10/06/21 10/06/21 10/06/21 Range/Units 06:27 06:27 06:27 WBC 4.6 L (4.8-10.8) X10*3/uL RBC 4.96 (4.60-5.80) X10*6/uL Hgb 15.7 (14.0-18.0) g/dl Hct 45.6 (42.0-52.0) % MCV 91.9 (80.0-98.0) fL MCH 31.7 (27.0-33.0) pg MCHC 34.4 (31.0-36.0) g/dl RDW 11.9 (11.0-16.0) % Plt Count 166 (160-400) X10*3/uL MPV 8.7 L (9.4-12.4) fL Immature Gran % (Auto) 0.2 (0.0-0.4) % Neut % (Auto) 52.2 (45-73) % Lymph % (Auto) 35.2 (20-40) % Iron % (Auto) 10.0 (2-11) % Eos % (Auto) 2.2 (0-4) % Baso % (Auto) 0.2 (0-2) % Lymph # (Auto) 1.6 (1.2-4.9) X10*3/uL Iron # (Auto) 0.5 (0.1-1.2) X10*3/uL Eos # (Auto) 0.1 (0.0-0.4) X10*3/uL Baso # (Auto) 0.0 (0.0-0.2) X10*3/uL Abs Immat Gran (auto) 0.01 (0.00-0.03) X10*3/uL Absolute Neuts (auto) 2.4 (2.0-8.3) x10*3/uL Absolute Nucleated RBC 0.000 (0.0-0.012) X10*3/uL Nucleated RBC % (auto) 0.0 (0.0-0.2) /100WBC Sodium 140 (135-145) mmol/L Potassium 4.0 (3.3-5.1) mmol/L Chloride 106 (96-108) mmol/L Carbon Dioxide 27 (22-29) mmol/L Anion Gap 11 L (12-20) BUN 15 (9-16) mg/dL Creatinine 1.01 (0.5-1.4) mg/dL Estim Creat Clear Calc 95.5 Estimated GFR > 60 Random Glucose 136 H D (60-115) mg/dL Calcium 9.4 (8.4-10.2) mg/dL Troponin I High Sens < 3.5 (<3.5-35.0) ng/L Imaging Data Chest x-ray: Radiologist's impression: XR CHEST CLINICAL INFORMATION: Chest pain COMPARISON: 06/10/2021 TECHNIQUE: Frontal view of the chest was obtained. FINDINGS: Normal symmetric lung volumes. No parenchymal consolidation. No pleural effusion. No pneumothorax.? Cardiomediastinal silhouette and pulmonary vascularity are within normal limits. No acute osseous abnormalities. XR/XR chest 1V IMPRESSION: No acute findings. ? Dictated By: EVA COKER MD Signed By: <Electronically signed by EVA COKER MD in OV> 10/06/2155 DD/ TD/TT:? [employer]: DB ECG Data ECG #1: Attestation: I personally reviewed and interpreted this ECG as follows: ECG interpretation date: 10/06/21 ECG interpretation time: 07:37 Pacemaker model: NSR 66 ST-T segment isoelectric normal intervals Discharge Plan Discharge Clinical Impression: Chest pain Patient Disposition: Home, Self-Care Instructions: Chest Pain (ED), Chest Wall Pain (ED) Prescriptions: New oxycodone 5 mg capsule 5 mg PO Q8H PRN (Reason: pain) Qty: 12 RF: 0 No Action methylprednisolone [Methylpred DP] 4 mg tablets,dose pack 4 mg PO PER PKG DIR Qty: 21 RF: 0 cyclobenzaprine 5 mg tablet 5 mg PO BEDTIME PRN (Reason: muscle spasm) Qty: 14 RF: 0 naproxen 500 mg tablet 500 mg PO BID PRN (Reason: pain) Qty: 20 RF: 0 Interventions: ED Discharge Assessment Last Done: 10/06/21 07:53 Discharge Date/Time: 10/06/21 07:54
--- NOTE | 2021-10-06 07:52 | PC.NURSE ---
care taken over at 0700, in to see pt. plan for dc. pt aware of plan of care and denied having any questions.
== END 2021-10-06 07:54 | disposition home or self-care (01) ==
PROVIDERS: Emergency Provider Emergency Medicine
DX: R07.9 Chest pain, unspecified (principal)
CPT/HCPCS: 36415; 71045; 80048; 84484; 85025; 93005; 99283; 99284

== ENCOUNTER → 2021-10-15 13:08 | Outpatient (BNVA) | payer OTHER, MEDICAID, SELFPAY | PROVIDERS: Visit Provider Anesthesiology ==

== ENCOUNTER 2021-12-25 11:55 | Emergency (ER) | payer OTHER, MEDICAID, SELFPAY ==
--- NOTE | ~2021-12-25 | XR_ITS ---
EXAMINATION: XR CHEST CLINICAL INFORMATION: Chest pain COMPARISON: Previous chest x-ray October 2021 TECHNIQUE: Frontal view of the chest was obtained. FINDINGS: No significant abnormality is noted involving the heart, lungs, mediastinum, bony thorax or soft tissues. XR/XR chest 1V IMPRESSION: Unremarkable examination.
[2021-12-25 13:00] VITALS: BP 130/66; PULSE 66; RESP 20; TEMP 36.9; O2SAT 98; BMI 28.3
--- NOTE | 2021-12-25 13:38 | ED_ITS ---
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 Patient states that he had a very brief moment of sharp pain in his middle back and the middle of his chest that resolved quickly. Patient denies any current dizziness, lightheadedness, abdominal pain, nausea, vomiting, fever, chills, blurry vision, double vision, loss of vision, chest pain, difficulty breathing, shortness of breath, back pain, night sweats, pain with urination, increased urinary frequency, increased urinary urgency, blood in his urine or stool, syncope or a near syncopal episode, recent trauma or falls, bowel incontinence, bladder incontinence, bowel retention, bladder retention, or any other complaints at this time. Patient states that he has a history of chronic costochronditis. Related Data Previous Rx's Medication Instructions Recorded methylprednisolone 4 mg tablets in 4 mg PO PER PKG DIR #21 ea 01/02/21 a dose pack (Methylpred DP) naproxen 500 mg tablet 500 mg PO BID PRN #20 tab 06/10/21 oxycodone 5 mg capsule 5 mg PO Q8H PRN #12 cap 10/06/21 baclofen 10 mg tablet 10 mg PO TID 30 Days #90 tab 10/15/21 gabapentin 400 mg capsule 400 mg PO BEDTIME 30 Days #30 cap 10/15/21 Allergies Allergy/AdvReac Type Severity Reaction Status Date / Time No Known Allergies Allergy Verified 10/15/21 13:25 Review of Systems Constitutional: Constitutional: Reports no additional constitutional complaints, Denies chills, Denies fever(s) and Denies night sweats Eyes: Eyes: Reports no additional eye complaints, Denies blurry vision, Denies change in vision, Denies diplopia, Denies eye discharge, Denies loss of vision and Denies eye pain ENT: Denies dizziness Cardiovascular: Cardiovascular: Reports no additional cardiovascular complaints, Denies chest pain, Denies lightheadedness, Denies Loss of Consciousness and Denies dyspnea Respiratory: Respiratory: Reports no additional respiratory complaints and Denies dyspnea Gastrointestinal: Gastrointestinal: Reports no additional gastrointestinal complaints, Denies abdominal pain, Denies melena, Denies hematochezia, Denies change in bowel habits and Denies change in stool character Genitourinary: Genitourinary: Reports no additional male genitourinary complaints, Denies hematuria, Denies oliguria, Denies difficulty urinating, Denies dysuria, Denies urinary frequency, Denies urinary hesitancy, Denies urinary incontinence and Denies urinary urgency Musculoskeletal: Musculoskeletal: Reports no additional musculoskeletal complaints, Denies numbness and Denies tingling Neurologic: Denies dizziness, Denies loss of vision, Denies numbness and Denies tingling Psychiatric: Psychiatric: Reports no additional psychiatric complaints Endocrine: Endocrine: Reports no additional endocrine complaints Hematologic/Lymphatic: Hematologic/Lymphatic: Reports no additional hematologic/lymphatic complaints Allergic/Immunologic: Allergic/Immunologic: Reports no additional allergic/immunologic complaints PMFSH Past Medical History Attestation statement: The following information was validated with the patient. Source: old records reviewed Medical History HTN (hypertension) Tietze syndrome Family History Family History Other Family history non-contributory Social History Social History Alcohol intake: never Advance Directives: No Advance Directives Information Provided: No Physical Exam ED Vital Signs: Vital Signs - 24 hr 12/25/21 13:00 Temperature 98.5 F Pulse Rate 66 Respiratory Rate 20 Blood Pressure 130/66 Pulse Oximetry 98 BMI result Body Mass Index 28.3 Const General: cooperative, no acute distress, alert and awake Nutritional Appearance: well nourished Orientation/consciousness: patient oriented x3 Limitations: no limitations [facility] Head: Yes normal to inspection and Yes atraumatic Ears: hearing grossly normal bilaterally and external ears normal General nose exam: Normal external nose present, no nasal discharge noted and no epistaxis Face and sinus: Yes normal facial exam, No abrasion and No laceration Mouth: Normal oral and palatal mucosa present, no drooling and no muffled voice Eyes General: appearance normal, both eyes and all related structures Periorbital: periorbital findings normal Eyelids: Yes eyelids normal Conjunctivae: conjunctivae normal Pupils: Equal, round and reactive pupils present EOM: EOMs intact bilaterally Neck Neck: Yes normal visual inspection, Yes full ROM and Yes no lymphadenopathy Chest Chest palpation & inspection: normal inspection of the chest Resp Effort & Inspection: normal respiratory effort and able to speak in complete sentences Auscultation: clear to auscultation bilaterally Cardio Rate: regular rate Rhythm: regular rhythm GI Inspection: Yes normal to inspection Neuro General: patient oriented x3 and moves all extremities Cranial nerves: Yes Equal, round and reactive pupils present Cognition (Neuro): normal cognition Motor exam (neuro): 5/5 motor strength present throughout Sensory Exam: Normal double simultaneous stimulation for sensation Coordination: [id number] test normal Extrem General: Yes normal to inspection, Yes full ROM and Yes capillary refill normal Psych Appearance: grossly normal Mental Status: mental status grossly normal Affect: normal affect Attitude: cooperative Thought process: Normal thought process present Thought content: Normal thought content present Insight: Good insight present (Psych) Medical Decision Making MDM Narrative Medical decision making narrative: Patient is a 46 year old male presenting to the emergency department today with a brief chest pain and back pain. Patient's physical exam was unremarkable. Patient's blood work was unremarkable. Patient's EKG was unremarkable. Patient's chest x-ray showed no acute process. I explained my physical exam findings as well as all test results to the patient. I answered all questions asked by the patient. I stressed the importance of the patient taking his medication as prescribed. I stressed the importance of the patient following up with his primary care provider. I stressed the importance of the patient returning to the emergency department immediately if his symptoms were to worsen or if he were to develop any dizziness, shortness of breath, difficulty breathing, chest pain, blurry vision, loss of vision, nausea, vomiting, abdominal pain, fever, chills, back pain, or any other complaints. Patient verbalized agreement and understanding with this treatment plan and discharge. Differential Diagnosis Differential Diagnosis: costochondritis, back pain, atyical chest pain Medical Records Medical records reviewed: Yes I reviewed the patient's medical records. Lab Data Lab results reviewed: Yes I reviewed the patient's lab results. Result diagrams: 12/25/21 14:24 12/25/21 14:24 Labs: Lab Results 12/25/21 12/25/21 12/25/21 Range/Units 14:24 14:24 14:24 WBC 6.1 (4.8-10.8) X10*3/uL RBC 4.99 (4.60-5.80) X10*6/uL Hgb 15.7 (14.0-18.0) g/dl Hct 45.5 (42.0-52.0) % MCV 91.2 (80.0-98.0) fL MCH 31.5 (27.0-33.0) pg MCHC 34.5 (31.0-36.0) g/dl RDW 11.9 (11.0-16.0) % Plt Count 212 D (160-400) X10*3/uL MPV 8.7 L (9.4-12.4) fL Immature Gran % (Auto) 0.3 (0.0-0.4) % Neut % (Auto) 62.9 (45-73) % Lymph % (Auto) 26.4 (20-40) % Morrill % (Auto) 8.0 (2-11) % Eos % (Auto) 2.1 (0-4) % Baso % (Auto) 0.3 (0-2) % Lymph # (Auto) 1.6 (1.2-4.9) X10*3/uL Morrill # (Auto) 0.5 (0.1-1.2) X10*3/uL Eos # (Auto) 0.1 (0.0-0.4) X10*3/uL Baso # (Auto) 0.0 (0.0-0.2) X10*3/uL Abs Immat Gran (auto) 0.02 (0.00-0.03) X10*3/uL Absolute Neuts (auto) 3.8 (2.0-8.3) x10*3/uL Absolute Nucleated RBC 0.000 (0.0-0.012) X10*3/uL Nucleated RBC % (auto) 0.0 (0.0-0.2) /100WBC D-Dimer High Sensitivty 154 NG/ML Sodium 139 (135-145) mmol/L Potassium 4.1 (3.3-5.1) mmol/L Chloride 102 (96-108) mmol/L Carbon Dioxide 26 (22-29) mmol/L Anion Gap 15 (12-20) BUN 10 (9-16) mg/dL Creatinine 0.92 (0.5-1.4) mg/dL Estim Creat Clear Calc 103.8 Estimated GFR > 60 Fasting Glucose 101 H (60-99) mg/dL Calcium 10.0 D (8.4-10.2) mg/dL Total Bilirubin 0.7 (0.0-1.0) mg/dL AST 23 (5-37) U/L ALT 29 (0-40) U/L Alkaline Phosphatase 36 L (39-117) U/L Troponin I High Sens (<3.5-35.0) ng/L Total Protein 7.9 (6.5-8.0) g/dL Albumin 4.9 (3.5-5.0) g/dL 12/25/21 Range/Units 14:24 WBC (4.8-10.8) X10*3/uL RBC (4.60-5.80) X10*6/uL Hgb (14.0-18.0) g/dl Hct (42.0-52.0) % MCV (80.0-98.0) fL MCH (27.0-33.0) pg MCHC (31.0-36.0) g/dl RDW (11.0-16.0) % Plt Count (160-400) X10*3/uL MPV (9.4-12.4) fL Immature Gran % (Auto) (0.0-0.4) % Neut % (Auto) (45-73) % Lymph % (Auto) (20-40) % Morrill % (Auto) (2-11) % Eos % (Auto) (0-4) % Baso % (Auto) (0-2) % Lymph # (Auto) (1.2-4.9) X10*3/uL Morrill # (Auto) (0.1-1.2) X10*3/uL Eos # (Auto) (0.0-0.4) X10*3/uL Baso # (Auto) (0.0-0.2) X10*3/uL Abs Immat Gran (auto) (0.00-0.03) X10*3/uL Absolute Neuts (auto) (2.0-8.3) x10*3/uL Absolute Nucleated RBC (0.0-0.012) X10*3/uL Nucleated RBC % (auto) (0.0-0.2) /100WBC D-Dimer High Sensitivty NG/ML Sodium (135-145) mmol/L Potassium (3.3-5.1) mmol/L Chloride (96-108) mmol/L Carbon Dioxide (22-29) mmol/L Anion Gap (12-20) BUN (9-16) mg/dL Creatinine (0.5-1.4) mg/dL Estim Creat Clear Calc Estimated GFR Fasting Glucose (60-99) mg/dL Calcium (8.4-10.2) mg/dL Total Bilirubin (0.0-1.0) mg/dL AST (5-37) U/L ALT (0-40) U/L Alkaline Phosphatase (39-117) U/L Troponin I High Sens < 3.5 (<3.5-35.0) ng/L Total Protein (6.5-8.0) g/dL Albumin (3.5-5.0) g/dL Imaging Data Chest x-ray: Attestation: I personally reviewed and interpreted this imaging study as follows: Radiologist's impression: EXAMINATION: XR CHEST CLINICAL INFORMATION: Chest pain COMPARISON: Previous chest x-ray October 2021 TECHNIQUE: Frontal view of the chest was obtained. FINDINGS: No significant abnormality is noted involving the heart, lungs, mediastinum, bony thorax or soft tissues. XR/XR chest 1V IMPRESSION: Unremarkable examination. Dictated By: Roseanna Winston MD Signed By: Electronically signed by Roseanna Winston MD 12/25/21 2964 ECG Data Interpretation: Vent. Rate: 053 BPM ? ? Atrial Rate: 053 BPM P-R Int: 154 ms? QRS Dur: 086 ms QT Int: 424 ms ? ? ? P-R-T Axes: 022 002 024 degrees QTc Int: 397 ms ? Sinus bradycardia Otherwise normal ECG When compared with ECG of 06-OCT-2021 06:20, No significant change was found Discharge Plan Discharge Clinical Impression: Costochondral chest pain Patient Disposition: Home, Self-Care Instructions: Thoracic Pain (ED) Additional Instructions: Follow up with your primary care provider. Return to the emergency department immediately if your symptoms worsen or if you develop any dizziness, shortness of breath, difficulty breathing, chest pain, blurry vision, loss of vision, nausea, vomiting, abdominal pain, fever, chills, back pain, or any other complaints. Prescriptions: No Action methylprednisolone [Methylpred DP] 4 mg tablets,dose pack 4 mg PO PER PKG DIR Qty: 21 0RF naproxen 500 mg tablet 500 mg PO BID PRN (Reason: pain) Qty: 20 0RF oxycodone 5 mg capsule 5 mg PO Q8H PRN (Reason: pain) Qty: 12 0RF baclofen 10 mg tablet 10 mg PO TID 30 Days Qty: 90 12RF gabapentin 400 mg capsule 400 mg PO BEDTIME 30 Days Qty: 30 11RF Referrals: Jacquelyn Arnold PA [Primary Care Provider] - 2 days Interventions: ED Discharge Assessment Last Done: 12/25/21 15:12 Discharge Date/Time: 12/25/21 15:12 Print Language: Mozambican
--- NOTE | 2021-12-25 13:48 | ECG_ITS ---
Test Reason : CP Blood Pressure : / mmHG Vent. Rate : 053 BPM Atrial Rate : 053 BPM P-R Int : 154 ms QRS Dur : 086 ms QT Int : 424 ms P-R-T Axes : 022 002 024 degrees QTc Int : 397 ms Sinus bradycardia Otherwise normal ECG When compared with ECG of 06-OCT-2021 06:20, No significant change was found Referred By: Viki Suggs Electronically Signed By:MEE CORREA
[2021-12-25 14:31] LABS: MANUAL DIFF FLAG NO
[2021-12-25 14:33] LABS: Basophils Percent Auto 0.3 % (0-2); Eosinophils Absolute Auto 0.1 X10*3/uL (0.0-0.4); Eosinophils Percent Auto 2.1 % (0-4); Hematocrit 45.5 % (42.0-52.0); Hemoglobin 15.7 g/dl (14.0-18.0); Imm Gran Abs Auto 0.02 X10*3/uL (0.00-0.03); Imm Gran Pct Auto 0.3 % (0.0-0.4); Lymphocytes Absolute Auto 1.6 X10*3/uL (1.2-4.9); Lymphocytes Percent Auto 26.4 % (20-40); Mean Corpuscular HGB Conc 34.5 g/dl (31.0-36.0); Mean Corpuscular Hemoglobin 31.5 pg (27.0-33.0); Mean Corpuscular Volume 91.2 fL (80.0-98.0); Mean Platelet Volume 8.7 fL (9.4-12.4); Monocytes Absolute Auto 0.5 X10*3/uL (0.1-1.2); Neutrophils Absolute Auto 3.8 x10*3/uL (2.0-8.3); Neutrophils Percent Auto 62.9 % (45-73); Platelet Count 212 X10*3/uL (160-400); Red Blood Count 4.99 X10*6/uL (4.60-5.80); Red Cell Distribution Width 11.9 % (11.0-16.0); White Blood Count 6.1 X10*3/uL (4.8-10.8)
[2021-12-25 14:47] LABS: D Dimer High Sensitivity 154 NG/ML
[2021-12-25 14:53] LABS: Alanine Aminotransferase 29 U/L (0-40); Albumin Level 4.9 g/dL (3.5-5.0); Alkaline Phosphatase 36 U/L (39-117); Anion Gap 15 (12-20); Aspartate Amino Transferase 23 U/L (5-37); Bilirubin Total 0.7 mg/dL (0.0-1.0); Blood Urea Nitrogen 10 mg/dL (9-16); Carbon Dioxide 26 mmol/L (22-29); Chloride 102 mmol/L (96-108); Creatinine Clr Calc Pharmacy 103.8; Estimated Glomerular Filt Rate > 60; Glucose Fasting 101 mg/dL (60-99); Potassium 4.1 mmol/L (3.3-5.1); Sodium 139 mmol/L (135-145); Total Protein 7.9 g/dL (6.5-8.0)
[2021-12-25 14:58] LABS: Troponin-I High Sensitivity < 3.5 ng/L (<3.5-35.0)
== END 2021-12-25 15:12 | disposition home or self-care (01) ==
PROVIDERS: Physician Assistant Medical; Emergency Provider Emergency Medicine; PCP Physician Assistant Medical
DX: M94.0 Chondrocostal junction syndrome [Tietze] (principal); I10 Essential (primary) hypertension
CPT/HCPCS: 36415; 71045; 80053; 84484; 85025; 85379; 93005; 99283; 99284

== ENCOUNTER → 2022-01-07 14:35 | Outpatient (BNVA) | payer OTHER, MEDICAID, SELFPAY | PROVIDERS: Visit Provider Anesthesiology ==

== ENCOUNTER → 2022-01-23 09:08 | Outpatient (BNVA) | payer OTHER, MEDICAID, SELFPAY | PROVIDERS: Visit Provider Anesthesiology | DX: M94.0 Chondrocostal junction syndrome [Tietze] (principal) | CPT/HCPCS: 99212 ==

== ENCOUNTER → 2022-04-04 13:03 | Outpatient (BNVA) | payer OTHER, MEDICAID, SELFPAY | PROVIDERS: Visit Provider Anesthesiology | DX: Z13.89 Encounter for screening for other disorder (principal) ==

== ENCOUNTER 2022-06-20 21:35 | Emergency (ER) | payer OTHER, MEDICAID, SELFPAY ==
[2022-06-20 21:55] VITALS: BP 149/92; PULSE 93; RESP 16; TEMP 36.7; O2SAT 99; BMI 28.1
--- NOTE | 2022-06-20 23:28 | ED_ITS ---
HPI - General Adult General Chief complaint: General Medical Stated complaint: burning sensation on face Time Seen by Provider: 06/20/22 23:06 Source: patient Mode of arrival: ambulatory Limitations: no limitations History of Present Illness HPI narrative: Patient comes to the emergency room complaining of flushing sensation in his face, with a burning/stinging sensation. Patient states it is intermittent. It has been happening over a month. Patient denies any fever or chills Related Data Previous Rx's Medication Instructions Recorded methylprednisolone 4 mg tablets in 4 mg PO PER PKG DIR #21 ea 01/02/21 a dose pack (Methylpred DP) naproxen 500 mg tablet 500 mg PO BID PRN pain #20 tabs 06/10/21 oxycodone 5 mg capsule 5 mg PO Q8H PRN pain #12 caps 10/06/21 gabapentin 400 mg capsule 400 mg PO BEDTIME 30 days #30 caps 10/15/21 baclofen 20 mg tablet 20 mg PO TID 30 days #90 tabs 01/07/22 metronidazole 0.75 % topical gel 1 appl topical BID #45 grams 06/20/22 Allergies Allergy/AdvReac Type Severity Reaction Status Date / Time No Known Allergies Allergy Verified 06/20/22 21:55 Review of Systems Review of Systems: Constitutional : No Weight loss, No Fever, No Chills, No Night Sweats, No Fatigue, No Malaise ENT/Mouth : No Hearing loss, No Ear Pain, No Nasal Congestion, No Sinus Pain, No Hoarseness, No sore throat, No Rhinorrhea, No Swallowing Difficulty Eyes: No Eye Pain, No Swelling, No Redness, No Foreign Body, No Discharge, No Vision Changes Cardiovascular : No Chest Pain, No SOB, No Dyspnea on Exertion, No Orthopnea, No Edema, No Palpitations Respiratory : No Cough, No Sputum, No Wheezing, No Smoke Exposure, No Dyspnea Gastrointestinal : No Nausea, No Vomiting, No Diarrhea, No Constipation, No abdominal Pain, No Hematochezia, No Melena Genitourinary : no irregular bleeding, No Dysuria, No Urinary Frequency, No Hematuria, No Urinary Incontinence, No Urgency, No Flank Pain, No Urinary Flow Changes, No Hesitancy Musculoskeletal : No joint pain, No Myalgias, No Joint Swelling Skin : Complaining of facial/cheek flushing, burning sensation Neuro : No Weakness, No Numbness, No Paresthesias, No Loss of Consciousness, No Dizziness, No Headache Psych : No Anxiety/Panic, No Depression, No SI/HI/AH/VH, No Social Issues, Heme/Lymph: No Bruising, No Bleeding,No Lymphadenopathy Endocrine : No Polyuria, No Polydipsia, No Temperature Intolerance [facility] Past Medical History Medical History HTN (hypertension) Tietze syndrome Family History Family History Other Family history non-contributory Social History Social History Alcohol intake: never Advance Directives: No Physical Exam ED Vital Signs: Vital Signs - 24 hr 06/20/22 21:55 Temperature 98.1 F Pulse Rate 93 Respiratory Rate 16 Blood Pressure 149/92 H Pulse Oximetry 99 Oxygen Delivery Method Room Air BMI result Body Mass Index 28.1 Const Other: Appearance: Alert. Oriented X3. No acute distress. Eyes: Pupils equal, round and reactive to light. ENT: Pharynx normal. Neck: Normal inspection. Neck supple. No lymph nodes noted. No crepitus CVS: Normal heart rate and rhythm. Pulses normal. Normal S1 and S2 Respiratory: No respiratory distress. Breath sounds normal. No Wheezing. No rales Abdomen: Soft and nontender. No rigidity. No distention. Skin: Skin warm and dry. Facial skin in the cheeks are erythematous, no your tick area, very small telangiectasias seen Extremities: No lower extremity edema. No Lacerations. No Rash Neuro: Oriented X 3. No motor deficit. No sensory deficit. Moving all extremities. No slurred speech. CN 2 through 12 grossly intact Psych: calm, cooperative, normal affect Course Course Course Narrative: I discussed the physical exam with the patient. Seems that the patient has rosacea. Patient will try metronidazole gel topical. Patient started to follow-up with his primary care physician. At this time, labs are not indicated Discharge Plan Discharge Clinical Impression: Rosacea Patient Disposition: Home, Self-Care Instructions: Rosacea (ED) Additional Instructions: Please follow-up with your primary care physician tomorrow. If you have any worsening or new symptoms, please return to the emergency room or call 911 Prescriptions: New metronidazole 0.75 % gel 1 appl topical BID Qty: 45 0RF No Action methylprednisolone [Methylpred DP] 4 mg tablets,dose pack 4 mg PO PER PKG DIR Qty: 21 0RF naproxen 500 mg tablet 500 mg PO BID PRN (Reason: pain) Qty: 20 0RF oxycodone 5 mg capsule 5 mg PO Q8H PRN (Reason: pain) Qty: 12 0RF gabapentin 400 mg capsule 400 mg PO BEDTIME 30 Days Qty: 30 11RF baclofen 20 mg tablet 20 mg PO TID 30 Days Qty: 90 8RF
== END 2022-06-21 | disposition home or self-care (01) ==
PROVIDERS: Emergency Provider Emergency Medicine; PCP Physician Assistant Medical
DX: L71.9 Rosacea, unspecified (principal); I10 Essential (primary) hypertension
CPT/HCPCS: 99282; 99283

== ENCOUNTER → 2022-09-02 13:07 | Outpatient (BNVA) | payer MEDICAID, SELFPAY | PROVIDERS: PCP Physician Assistant; Visit Provider Anesthesiology | DX: M94.0 Chondrocostal junction syndrome [Tietze] (principal) | CPT/HCPCS: 99212 ==

== ENCOUNTER 2022-10-04 08:19 | Emergency (ER) | payer OTHER, SELFPAY ==
--- NOTE | ~2022-10-04 | XR_ITS ---
EXAMINATION: XR CHEST CLINICAL INFORMATION: Left-sided chest and back pain. COMPARISON: 12/25/2021 chest radiograph. TECHNIQUE: 2 views of the chest were obtained. FINDINGS: No significant abnormality is noted involving the heart, lungs, mediastinum, bony thorax or soft tissues. XR/XR chest 2V IMPRESSION: No acute cardiopulmonary process.
[2022-10-04 08:20] VITALS: BP 131/83; PULSE 76; RESP 16; TEMP 36.4; O2SAT 98; BMI 42.5
--- NOTE | 2022-10-04 09:26 | ECG_ITS ---
Test Reason : chest pain Blood Pressure : / mmHG Vent. Rate : 066 BPM Atrial Rate : 066 BPM P-R Int : 152 ms QRS Dur : 082 ms QT Int : 402 ms P-R-T Axes : 027 003 015 degrees QTc Int : 421 ms Normal sinus rhythm Inferior infarct , age undetermined Abnormal ECG When compared with ECG of 25-DEC-2021 14:08, No significant change was found Referred By: Rivka Aranda Electronically Signed By:Preston Pacheco
[2022-10-04 09:48] LABS: Basophils Percent Auto 0.2 % (0-2); Eosinophils Absolute Auto 0.1 X10*3/uL (0.0-0.4); Eosinophils Percent Auto 1.6 % (0-4); Hematocrit 50.2 % (42.0-52.0); Hemoglobin 17.4 g/dl (14.0-18.0); Imm Gran Abs Auto 0.01 X10*3/uL (0.00-0.03); Imm Gran Pct Auto 0.2 % (0.0-0.4); Lymphocytes Absolute Auto 1.3 X10*3/uL (1.2-4.9); MANUAL DIFF FLAG NO; Mean Corpuscular HGB Conc 34.7 g/dl (31.0-36.0); Mean Corpuscular Hemoglobin 31.4 pg (27.0-33.0); Mean Corpuscular Volume 90.6 fL (80.0-98.0); Mean Platelet Volume 8.3 fL (9.4-12.4); Monocytes Absolute Auto 0.6 X10*3/uL (0.1-1.2); Neutrophils Absolute Auto 3.1 x10*3/uL (2.0-8.3); Platelet Count 200 X10*3/uL (160-400); Red Blood Count 5.54 X10*6/uL (4.60-5.80); Red Cell Distribution Width 11.8 % (11.0-16.0); White Blood Count 5.2 X10*3/uL (4.8-10.8)
[2022-10-04] MEDS: Cyclobenzaprine HCl 10 MG TABLET PO (09:54)
[2022-10-04 10:11] LABS: INTERNATIONAL NORM RATIO 1.1 (0.9-1.1); Prothrombin Time 12.6 SEC (10.0-13.1)
[2022-10-04 10:15] LABS: Alanine Aminotransferase 42 U/L (0-40); Albumin Level 5.2 g/dL (3.5-5.0); Alkaline Phosphatase 45 U/L (39-117); Anion Gap 16 (12-20); Aspartate Amino Transferase 25 U/L (5-37); Blood Urea Nitrogen 17 mg/dL (9-16); Calcium 10.1 mg/dL (8.4-10.2); Carbon Dioxide 29 mmol/L (22-29); Chloride 98 mmol/L (96-108); Creatinine Clr Calc Pharmacy 99.2; Estimated Glomerular Filt Rate > 60; Glucose Random 127 mg/dL (60-115); Magnesium 2.2 mg/dL (1.6-2.6); Potassium 4.4 mmol/L (3.3-5.1); Sodium 139 mmol/L (135-145); Total Protein 8.4 g/dL (6.5-8.0)
[2022-10-04 10:19] LABS: Troponin-I High Sensitivity < 3.5 ng/L (<3.5-35.0)
--- NOTE | 2022-10-04 10:21 | ED_ITS ---
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 He reports that the pain has been constant since yesterday. He reports that he was helping his [id number] moved and was driving at the time when the chest pain started. He reports he has had this pain in the past although is unsure if it is related to his costal chondritis pain in the past. Reports he has had a CT scan in the past for his heart and he reports it was normal. He also reports that he was prescribed naproxen, amitriptyline and gabapentin in the past which she took to help with his pain and no symptomatic relief for the patient. He denies any dizziness, changes in vision, lightheadedness, the jaw pain, paresthesias, extremity pain, rashes, recent falls or trauma, history of DVT or PE, hypercoagulation disorder that he is aware of, IV drug use, recent travel no long plane train or car ride, History of cancer, any estrogen usage, history of sudden or AR or stroke in his family before the age of 50 or 60, fevers, cough, shortness of breath, dyspnea on exertion, orthopnea, palpitations, abdominal pain, flank pain, dysuria, hematuria, black or bloody stools, lower extremity edema or calf tenderness, sick contacts or any other symptoms complaints or concerns at this time. MD complaint: chest pain Pertinent past history: other (History of costochondritis) Onset (ago): day(s) (Since yesterday) Timing of current episode: constant Prior episodes: Yes Onset: other (While driving) Pain location: left chest Pain radiation: back Severity: mild Quality: sharp Relieving factors: nothing Exacerbating factors: palpation and movement Treatment prior to arrival: other (He reports he took naproxen, amitriptyline and gabapentin and no symptomatic relief.) Related Data Previous Rx's Medication Instructions Recorded methylprednisolone 4 mg tablets in 4 mg PO PER PKG DIR #21 ea 01/02/21 a dose pack (Methylpred DP) naproxen 500 mg tablet 500 mg PO BID PRN pain #20 tabs 06/10/21 oxycodone 5 mg capsule 5 mg PO Q8H PRN pain #12 caps 10/06/21 baclofen 20 mg tablet 20 mg PO TID 30 days #90 tabs 01/07/22 metronidazole 0.75 % topical gel 1 appl topical BID #45 grams 06/20/22 amitriptyline 25 mg tablet 25 mg PO BEDTIME 30 days #30 tabs 09/02/22 gabapentin 400 mg capsule 400 mg PO BEDTIME 30 days #30 caps 09/03/22 cyclobenzaprine 10 mg tablet 10 mg PO Q8H #14 tabs 10/04/22 Allergies Allergy/AdvReac Type Severity Reaction Status Date / Time No Known Allergies Allergy Verified 06/20/22 21:55 Review of Systems Review of Systems: Constitutional : No Weight loss, No Fever, No Chills, No Night Sweats, No Fatigue, No Malaise ENT/Mouth : No Hearing loss, No Ear Pain, No Nasal Congestion, No Sinus Pain, No Hoarseness, No sore throat, No Rhinorrhea, No Swallowing Difficulty Eyes: No Eye Pain, No Swelling, No Redness, No Foreign Body, No Discharge, No Vision Changes Cardiovascular : + CPhest Pain, No SOB, no Dyspnea on Exertion, No Orthopnea, No Edema, No extremity swelling, No Palpitations Respiratory : No Cough, No Sputum, No Wheezing, No Dyspnea Gastrointestinal : No Nausea, No Vomiting, No Diarrhea, No abdominal Pain, No Hematochezia, No Melena Genitourinary : No irregular bleeding, No Dysuria, No Urinary Frequency, No Hematuria, No Urinary Incontinence, No Urgency, No Flank Pain, No Urinary Flow Changes, No Hesitancy Musculoskeletal : No joint pain, No Myalgias, No Joint Swelling Skin : No Skin Lesions, No rash Neuro : No Weakness, No Numbness, No Paresthesias, No Loss of Consciousness, No Dizziness, No Headache Psych : No Anxiety/Panic, No Depression, No SI/HI/AH/VH Heme/Lymph: No Bruising, No Bleeding,No Lymphadenopathy Endocrine : No Polyuria, No Polydipsia, No Temperature Intolerance Yes all other systems are reviewed and are negative PMFSH Past Medical History Attestation statement: The following information was validated with the patient. Source: old records reviewed and nursing notes reviewed Medical History HTN (hypertension) Tietze syndrome Family History Family History Other Family history non-contributory Social History Social History Alcohol intake: never Advance Directives: No Advance Directives Information Provided: Yes Physical Exam Vital Signs: Vital Signs: Last Vital Signs Temp 97.6 F 10/04/22 08:20 Pulse 76 10/04/22 08:20 Resp 16 10/04/22 08:20 BP 131/83 10/04/22 08:20 Pulse Ox 98 10/04/22 08:20 O2 Del Method 10/04/22 08:20 BMI result Body Mass Index 42.5 vital signs have been reviewed as normal and appeared to be correct. Blood pressure normal. Heart rate normal. Respiration rate normal. Temperature normal. Oxygen saturation normal. Appearance: Alert. Oriented X3. No acute distress. Head: Normal external exam. Normocephalic. Atraumatic. Eyes: PERRLA. EOMI. Conjunctiva and sclera normal. Eyelids normal. ENT: EAC normal. TM's Normal.Pharynx normal. Uvula midline. Moist mucous membranes. No lesions/ulcerations or masses noted on the tongue. Normal voice. No trismus noted. No drooling noted. No muffled voice noted. Neck: Normal inspection. Neck supple. FROM. No adenopathy. Thyroid Normal. No meningeal signs. CVS: Normal heart rate and rhythm. Heart sound normal. Pulses normal throughout. No murmurs/rales/gallops. Respiratory: No respiratory distress. Painless inspiration. Breath sounds normal. No wheezes/rales/rhonchi noted. Chest nontender. No crepitus is noted. No accessory muscle usage noted or decreased air movement noted. No signs of trauma noted. Abdomen: Soft and nontender. Nondistended. No guarding. No rigidity. Bowel sounds normal in all 4 quadrants. No distention noted. No organomegaly noted. No visible injury noted. No rebound tenderness. Negative Rovsing sign. Negative obturator's sign. Negative psoas sign. Negative Demarco sign. Back: No CVA tenderness. Full range of motion noted. Nontender. No signs of trauma. Patient neuro intact bilaterally and distally on all 4 extremities. Patient's reflexes intact bilaterally and distally on all 4 extremities. No rashes/lesion/induration/fluctuance or signs of infection noted. Skin: Skin warm and dry. Normal skin color. Normal skin turgor. No rashes/lesions/lacerations noted. Extremities: No lower extremity edema. No calf tenderness is noted. Extremities exhibit normal range of motion and nontender. Neuro: Oriented X 3. No motor deficit. No sensory deficit. Reflexes normal. Normal steady gait. No focal neuro deficits noted. CN's II-XII intact bilaterally? Vascular: + radial pulses/+ 2 distal pedal pulses/+2 dorsalis pedis b/l. Normal cap refill. No cyanosis noted to upper extremity nails and lower extremity toes nails. 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 He has been seen by Dr. Croft in the past with multiple normal EKGs and a normal CT scan per the patient. Taking medications as prescribed. This patient presents with chest pain, with symptoms suggestive of noncardiac chest pain. History without high risk features. (not substernal, not exertional component, not relieved by rest). Minimal CAD risk factors (including age), unsure if the patient had a recent stress test. Reports he had a negative CT scan of his chest by Dr. Croft. Exam without evidence of volume overload. EKG without signs of active ischemia. Heart score 3.. Given timing of pain to ER presentation, plan to send single troponin to evaluate for NSTEMI. Presentation not consistent with acute PE (Wells score 0). PERC negative, pneumothorax, thoracic aortic dissection, cardiac effusion or tamponade. Plan: Labs including troponin, EKG, chest x-ray, pain control and re-evaluate. Reevaluation(s) Reevaluation #1: - labs reviewed BUN 17. Random glucose 127. ALT 42. Total protein 8.4. Albumin 5.2. Otherwise all other labs are within normal limits. - chest x-ray within normal limits no acute processes noted - EKG normal sinus rhythm nonspecific ST abnormalities and similar when compared to prior EKG. - therefore at this time patient with atypical chest pain. Will DC home with symptomatic treatment instructions follow-up with PCP/personal computer network engineer and to return if any new or worsening symptoms. Patient understands agrees with this plan. Time: 11:14 Medications Administered Discontinued Medications Generic Name Dose Route Start Last Admin Trade Name Pinoq PRN Reason Stop Dose Admin Cyclobenzaprine HCl 10 mg 10/04/22 09:27 10/04/22 09:54 Cyclobenzaprine Hcl 10 Mg Tablet PO 10/04/22 09:28 10 mg ONCE ONE Administration Naproxen 500 mg 10/04/22 09:27 10/04/22 09:55 Naproxen 500 Mg Tablet PO 10/04/22 09:28 Not Given ONCE ONE MDM - Chest Pain Medical Records Data Attestation: I reviewed the patient's medical records. Lab Data Attestation: I reviewed the patient's lab results. Result diagrams: 10/04/22 09:39 10/04/22 09:39 Labs: Lab Results 10/04/22 10/04/22 10/04/22 Range/Units 09:39 09:39 09:39 WBC 5.2 (4.8-10.8) X10*3/uL RBC 5.54 (4.60-5.80) X10*6/uL Hgb 17.4 (14.0-18.0) g/dl Hct 50.2 (42.0-52.0) % MCV 90.6 (80.0-98.0) fL MCH 31.4 (27.0-33.0) pg MCHC 34.7 (31.0-36.0) g/dl RDW 11.8 (11.0-16.0) % Plt Count 200 (160-400) X10*3/uL MPV 8.3 L (9.4-12.4) fL Immature Gran % (Auto) 0.2 (0.0-0.4) % Neut % (Auto) 60.0 (45-73) % Lymph % (Auto) 26.0 (20-40) % [place] % (Auto) 12.0 H (2-11) % Eos % (Auto) 1.6 (0-4) % Baso % (Auto) 0.2 (0-2) % Lymph # (Auto) 1.3 (1.2-4.9) X10*3/uL [place] # (Auto) 0.6 (0.1-1.2) X10*3/uL Eos # (Auto) 0.1 (0.0-0.4) X10*3/uL Baso # (Auto) 0.0 (0.0-0.2) X10*3/uL Abs Immat Gran (auto) 0.01 (0.00-0.03) X10*3/uL Absolute Neuts (auto) 3.1 (2.0-8.3) x10*3/uL Absolute Nucleated RBC 0.000 (0.0-0.012) X10*3/uL Nucleated RBC % (auto) 0.0 (0.0-0.2) /100WBC PT 12.6 (10.0-13.1) SEC INR 1.1 (0.9-1.1) Sodium 139 (135-145) mmol/L Potassium 4.4 (3.3-5.1) mmol/L Chloride 98 (96-108) mmol/L Carbon Dioxide 29 (22-29) mmol/L Anion Gap 16 (12-20) BUN 17 H D (9-16) mg/dL Creatinine 1.17 (0.5-1.4) mg/dL Estim Creat Clear Calc 99.2 Estimated GFR > 60 Random Glucose 127 H (60-115) mg/dL Calcium 10.1 (8.4-10.2) mg/dL Magnesium 2.2 (1.6-2.6) mg/dL Total Bilirubin 1.0 (0.0-1.0) mg/dL AST 25 (5-37) U/L ALT 42 H (0-40) U/L Alkaline Phosphatase 45 D (39-117) U/L Troponin I High Sens (<3.5-35.0) ng/L Total Protein 8.4 H (6.5-8.0) g/dL Albumin 5.2 H (3.5-5.0) g/dL 10/04/22 Range/Units 09:39 WBC (4.8-10.8) X10*3/uL RBC (4.60-5.80) X10*6/uL Hgb (14.0-18.0) g/dl Hct (42.0-52.0) % MCV (80.0-98.0) fL MCH (27.0-33.0) pg MCHC (31.0-36.0) g/dl RDW (11.0-16.0) % Plt Count (160-400) X10*3/uL MPV (9.4-12.4) fL Immature Gran % (Auto) (0.0-0.4) % Neut % (Auto) (45-73) % Lymph % (Auto) (20-40) % [place] % (Auto) (2-11) % Eos % (Auto) (0-4) % Baso % (Auto) (0-2) % Lymph # (Auto) (1.2-4.9) X10*3/uL [place] # (Auto) (0.1-1.2) X10*3/uL Eos # (Auto) (0.0-0.4) X10*3/uL Baso # (Auto) (0.0-0.2) X10*3/uL Abs Immat Gran (auto) (0.00-0.03) X10*3/uL Absolute Neuts (auto) (2.0-8.3) x10*3/uL Absolute Nucleated RBC (0.0-0.012) X10*3/uL Nucleated RBC % (auto) (0.0-0.2) /100WBC PT (10.0-13.1) SEC INR (0.9-1.1) Sodium (135-145) mmol/L Potassium (3.3-5.1) mmol/L Chloride (96-108) mmol/L Carbon Dioxide (22-29) mmol/L Anion Gap (12-20) BUN (9-16) mg/dL Creatinine (0.5-1.4) mg/dL Estim Creat Clear Calc Estimated GFR Random Glucose (60-115) mg/dL Calcium (8.4-10.2) mg/dL Magnesium (1.6-2.6) mg/dL Total Bilirubin (0.0-1.0) mg/dL AST (5-37) U/L ALT (0-40) U/L Alkaline Phosphatase (39-117) U/L Troponin I High Sens < 3.5 (<3.5-35.0) ng/L Total Protein (6.5-8.0) g/dL Albumin (3.5-5.0) g/dL Imaging Data Chest x-ray: Attestation: I personally reviewed and interpreted this imaging study as follows: Radiologist's impression: FINDINGS: No significant abnormality is noted involving the heart, lungs, mediastinum, bony thorax or soft tissues. XR/XR chest 2V IMPRESSION: No acute cardiopulmonary process. ECG Data ECG #1: Attestation: I personally reviewed and interpreted this ECG as follows: ECG interpretation date: 10/04/22 ECG interpretation time: 09:29 Interpretation: Normal sinus rhythm with ventricular rate of [address] abnormalities in no acute ischemic change are noted. Similar compared to prior EKG December 25, 2021. Discharge Plan Discharge Clinical Impression: Tietze syndrome Patient Disposition: Home, Self-Care Instructions: Costochondritis (ED) Additional Instructions: Follow-up with your primary care provider. Return if any new or worsening symptoms. Prescriptions: New cyclobenzaprine 10 mg tablet 10 mg PO Q8H Qty: 14 0RF No Action gabapentin 400 mg capsule 400 mg PO BEDTIME 30 Days Qty: 30 11RF methylprednisolone [Methylpred DP] 4 mg tablets,dose pack 4 mg PO PER PKG DIR Qty: 21 0RF naproxen 500 mg tablet 500 mg PO BID PRN (Reason: pain) Qty: 20 0RF oxycodone 5 mg capsule 5 mg PO Q8H PRN (Reason: pain) Qty: 12 0RF metronidazole 0.75 % gel 1 appl topical BID Qty: 45 0RF baclofen 20 mg tablet 20 mg PO TID 30 Days Qty: 90 8RF amitriptyline 25 mg tablet 25 mg PO BEDTIME 30 Days Qty: 30 8RF Print Language: Ukrainian
== END 2022-10-04 11:23 | disposition home or self-care (01) ==
PROVIDERS: Physician Assistant Medical; Emergency Provider Student in an Organized Health Care Education/Training Program; PCP Orthopaedic Surgery
DX: M94.0 Chondrocostal junction syndrome [Tietze] (principal); R07.89 Other chest pain; M54.50 Low back pain, unspecified; Z79.899 Other long term (current) drug therapy
CPT/HCPCS: 36415; 71046; 80053; 83735; 84484; 85025; 85610; 93005; 99283

== ENCOUNTER → 2022-10-30 12:55 | Outpatient (BNVA) | payer OTHER, SELFPAY | PROVIDERS: PCP Orthopaedic Surgery; Visit Provider Anesthesiology | DX: M94.0 Chondrocostal junction syndrome [Tietze] (principal) | CPT/HCPCS: 99212 ==

== ENCOUNTER → 2023-01-24 14:21 | Outpatient (BNVA) | payer OTHER, SELFPAY | PROVIDERS: PCP Physician Assistant; Visit Provider Urology | DX: C67.9 Malignant neoplasm of bladder, unspecified (principal) | CPT/HCPCS: 99202 ==

== ENCOUNTER 2023-03-14 12:58 | Outpatient (REF) | payer MEDICAID, SELFPAY ==
[2023-03-14 17:13] LABS: Urine Cytology See Pathology rpt
== END 2023-03-14 12:59 | disposition home or self-care (01) ==
LOC: HO.LAB 12:58
PROVIDERS: PCP Physician Assistant; Visit Provider Urology
DX: C67.9 Malignant neoplasm of bladder, unspecified (principal)
CPT/HCPCS: 52000; 88112; 99212

== ENCOUNTER 2023-07-10 18:02 | Emergency (ER) | payer MEDICAID, SELFPAY ==
--- NOTE | ~2023-07-10 | XR_ITS ---
EXAMINATION: XR SHOULDER, LEFT CLINICAL INFORMATION: Pain without trauma. COMPARISON: None available. TECHNIQUE: AP external rotation, Grashey, scapular Y, and axillary views of the left shoulder. FINDINGS: The bones and soft tissues are normal. No fracture. Glenohumeral and acromioclavicular alignment is anatomic with normal joint space. No abnormal soft tissue calcifications. XR/XR shoulder LT min 2V IMPRESSION: Normal left shoulder.
--- NOTE | 2023-07-10 18:38 | ED_ITS ---
HPI - Extremity Injury (Upper) General Chief Complaint: Extremity Injury, Upper Stated Complaint: L Shoulder pain Time Seen by Provider: 07/10/23 23:00 Source: patient and RN notes reviewed Mode of arrival: ambulatory Limitations: no limitations History of Present Illness HPI narrative: This is a 48-year-old male presenting to the emergency department with complaints of left shoulder pain. Patient reports that he fell asleep on the couch and woke up with left-sided shoulder pain. He states that pain has been constant and worsens with movement with palpation. He has been taking ibuprofen and muscle relaxants which has provided him with some relief. Denies history of right shoulder pain in the past. Denies chest pain, shortness of breath, fevers, chills, nausea, vomiting or diarrhea. No other complaints or concerns at this time. MD complaint: injury to: left and shoulder Onset (ago): day(s) Other injuries: none Place: home Severity: moderate Relieving factors: immobilization Exacerbating factors: none Associated symptoms: denies other symptoms Related Data Home Medications Medication Instructions Recorded Confirmed lisinopril 30 mg tablet 30 mg PO DAILY blood pressure 01/24/23 01/24/23 Previous Rx's Medication Instructions Recorded methylprednisolone 4 mg tablets in 4 mg PO PER PKG DIR #21 ea 01/02/21 a dose pack (Methylpred DP) naproxen 500 mg tablet 500 mg PO BID PRN pain #20 tabs 06/10/21 oxycodone 5 mg capsule 5 mg PO Q8H PRN pain #12 caps 10/06/21 metronidazole 0.75 % topical gel 1 appl topical BID #45 grams 06/20/22 amitriptyline 25 mg tablet 25 mg PO BEDTIME 30 days #30 tabs 09/02/22 gabapentin 400 mg capsule 400 mg PO BEDTIME 30 days #30 caps 09/03/22 cyclobenzaprine 10 mg tablet 10 mg PO BID 30 days #60 tabs 10/30/22 ibuprofen 600 mg tablet 600 mg PO Q6H PRN pain #30 tabs 07/10/23 lidocaine 5 % topical patch 1 patch topical DAILY #30 ea 07/11/23 (Lidoderm) Allergies Allergy/AdvReac Type Severity Reaction Status Date / Time No Known Allergies Allergy Verified 03/14/23 13:13 Review of Systems Review of Systems: Yes all other systems are reviewed and are negative PMFSH Past Medical History Attestation statement: The following information was validated with the patient. Medical History HTN (hypertension) Tietze syndrome Family History Family History Other Family history non-contributory Social History Social History Alcohol intake: never Advance Directives: No Advance Directives Information Provided: No Physical Exam Vital Signs: Vital Signs: Last Vital Signs Temp 100.2 F 07/10/23 18:39 Pulse 78 07/10/23 18:39 Resp 18 07/10/23 18:39 BP 136/88 07/10/23 18:39 Pulse Ox 99 07/10/23 18:39 O2 Del Method Room Air 07/10/23 18:39 BMI result Body Mass Index 28.1 General: Awake, alert, and oriented X3. No acute distress. HEENT: Normal inspection CVS: Normal heart rate and rhythm. Pulses normal. Respiratory: No respiratory distress Skin: Warm, dry, no rashes noted to exposed skin. Normal skin color. Normal skin turgor. Extremities: Left shoulder with tenderness palpation along the left AC joint. Pain with empty can test. Negative drop-arm test, positive lift-off test. Neuro: Oriented X 3. No motor deficit. No sensory deficit. Course Course Course Narrative: This is a rapid medical exam. Deferred additional HPI, ROS, PE to primary provider. 48yo male with history of HTN, right hand dominant here with complaints of left shoulder pain since Friday. No injury or trauma. Will obtain x-rays. VSS Medical Decision Making Medical Decision Making MDM Narrative: 48-year-old male presenting to the emergency department for complaints of left shoulder pain. Patient states that he developed left-sided shoulder pain after falling asleep on his couch. On arrival, vital signs within normal limits. Patient has tenderness palpation along the left AC joint, worsening with palpation. Symptoms consistent with musculoskeletal presentation. X-ray was obtained and was unremarkable. Discharge with instructions on taking ibuprofen timing, also given lidocaine patches. Given referral to Orthopedics should his symptoms continue. Patient has had no chest pain or shortness of breath. Patient given return precautions should any new or worsening symptoms occur, patient stable for discharge Differential Diagnosis Differential Diagnoses: The differential diagnosis associated with the presentation includes Left shoulder dislocation, arthritis, contusion, fracture Radiology Impression Discussion of test interpretation with radiology: I have reviewed the radiologist's reading. Radiologist Impression: EXAMINATION: XR SHOULDER, LEFT CLINICAL INFORMATION: Pain without trauma. COMPARISON: None available. TECHNIQUE: AP external rotation, Grashey, scapular Y, and axillary views of the left shoulder. FINDINGS: The bones and soft tissues are normal. No fracture. Glenohumeral and acromioclavicular alignment is anatomic with normal joint space. No abnormal soft tissue calcifications. XR/XR shoulder LT min 2V IMPRESSION: Normal left shoulder. Dictated By: Akil Estrella MD Discharge Plan Discharge Clinical Impression: Left shoulder pain Qualifiers: Chronicity: acute Qualified Code(s): M25.512 - Pain in left shoulder Patient Disposition: Home, Self-Care Instructions: Shoulder Pain (ED) Additional Instructions: Your x-ray did not show any broken bones. Your symptoms are likely due to a muscle spasm. Please take prescribed ibuprofen and lidocaine patches as directed. Gentle massage, heat or ice and gentle range of motion also help with your symptoms. If any new or worsening symptoms occur, including but not limited to chest pain or shortness of breath, please return for re-evaluatio. You may follow-up with Orthopedics, call tomorrow to make appointment Prescriptions: New ibuprofen 600 mg tablet 600 mg PO Q6H PRN (Reason: pain) Qty: 30 0RF lidocaine [Lidoderm] 5 % adhesive patch,medicated 1 patch topical DAILY Qty: 30 0RF Rx Instructions: leave on most painful area for up to 12 hrs No Action gabapentin 400 mg capsule 400 mg PO BEDTIME 30 Days Qty: 30 11RF methylprednisolone [Methylpred DP] 4 mg tablets,dose pack 4 mg PO PER PKG DIR Qty: 21 0RF naproxen 500 mg tablet 500 mg PO BID PRN (Reason: pain) Qty: 20 0RF oxycodone 5 mg capsule 5 mg PO Q8H PRN (Reason: pain) Qty: 12 0RF metronidazole 0.75 % gel 1 appl topical BID Qty: 45 0RF lisinopril 30 mg tablet 30 mg PO DAILY cyclobenzaprine 10 mg tablet 10 mg PO BID 30 Days Qty: 60 8RF amitriptyline 25 mg tablet 25 mg PO BEDTIME 30 Days Qty: 30 8RF Referrals: [facility] [Provider Group] Interventions: ED Discharge Assessment Last Done: 07/11/23 00:05 Discharge Date/Time: 07/11/23 00:05
[2023-07-10 18:39] VITALS: BP 136/88; PULSE 78; RESP 18; TEMP 37.9; O2SAT 99; BMI 28.1
== END 2023-07-11 00:05 | disposition home or self-care (01) ==
PROVIDERS: Emergency Provider Internal Medicine; PCP Physician Assistant
DX: M25.512 Pain in left shoulder (principal); Z79.899 Other long term (current) drug therapy
CPT/HCPCS: 73030; 99282; 99283

== ENCOUNTER 2023-08-07 09:09 | Emergency (ER) | payer MEDICAID, SELFPAY ==
--- NOTE | 2023-08-07 | ECG_ITS ---
Test Reason : CHEST PAIN Blood Pressure : / mmHG Vent. Rate : 074 BPM Atrial Rate : 074 BPM P-R Int : 146 ms QRS Dur : 082 ms QT Int : 390 ms P-R-T Axes : 037 009 041 degrees QTc Int : 432 ms Normal sinus rhythm Possible Inferior infarct , age undetermined Abnormal ECG When compared with ECG of 04-OCT-2022 09:29, No significant change was found Referred By: Generic ED Physician Electronically Signed By:ZAKI LIMON
[2023-08-07 09:14] VITALS: BP 133/87; PULSE 73; RESP 16; TEMP 37.3; O2SAT 100; BMI 28.1
--- NOTE | 2023-08-07 09:35 | ED.GENADULT ---
HPI - General Adult General Chief complaint: Abdominal Pain Stated complaint: chest and upper abd pain Time Seen by Provider: 08/07/23 09:28 Source: patient Mode of arrival: ambulatory Limitations: no limitations History of Present Illness HPI narrative: presented c/o lower chest pain ,states that he has hx of costocondritis,denies extertional symptoms,denies SOB. Pain started 2-3 days ago Onset (ago): day(s) (2) Radiation: non-radiation Severity: mild Relieving factors: none Exacerbating factors: none Related Data Home Medications Medication Instructions Recorded Confirmed lisinopril 30 mg tablet 30 mg PO DAILY blood pressure 01/24/23 01/24/23 Previous Rx's Medication Instructions Recorded methylprednisolone 4 mg tablets in 4 mg PO PER PKG DIR #21 ea 01/02/21 a dose pack (Methylpred DP) naproxen 500 mg tablet 500 mg PO BID PRN pain #20 tabs 06/10/21 oxycodone 5 mg capsule 5 mg PO Q8H PRN pain #12 caps 10/06/21 metronidazole 0.75 % topical gel 1 appl topical BID #45 grams 06/20/22 amitriptyline 25 mg tablet 25 mg PO BEDTIME 30 days #30 tabs 09/02/22 gabapentin 400 mg capsule 400 mg PO BEDTIME 30 days #30 caps 09/03/22 cyclobenzaprine 10 mg tablet 10 mg PO BID 30 days #60 tabs 10/30/22 ibuprofen 600 mg tablet 600 mg PO Q6H PRN pain #30 tabs 07/10/23 lidocaine 5 % topical patch 1 patch topical DAILY #30 ea 07/11/23 (Lidoderm) Allergies Allergy/AdvReac Type Severity Reaction Status Date / Time No Known Allergies Allergy Verified 08/07/23 09:13 Review of Systems Constitutional: Constitutional: Reports no additional constitutional complaints ENT: Reports system reviewed and no additional complaints, except as documented Cardiovascular: Cardiovascular: Reports chest pain PMFSH Past Medical History PMFSH Narrative: costochondritis,HTN,denies diabetes no smoker Medical History Tietze syndrome HTN (hypertension) Family History Family History Other Family history non-contributory Social History Social History Alcohol intake: never Advance Directives: No Advance Directives Information Provided: Yes Physical Exam ED Vital Signs: Vital Signs - 24 hr 08/07/23 09:14 08/07/23 10:05 Temperature 99.2 F Pulse Rate 73 67 Respiratory Rate 16 14 Blood Pressure 133/87 126/82 Pulse Oximetry 100 98 Oxygen Delivery Method Room Air Room Air BMI result Body Mass Index 28.1 Const General: cooperative Nutritional Appearance: well nourished Orientation/consciousness: patient oriented x3 Limitations: no limitations HENMT Head: Yes No palpable skull fracture present Ears: hearing grossly normal bilaterally Face and sinus: Yes normal facial exam Mouth: Normal oral and palatal mucosa present Neck Neck: Yes normal visual inspection Chest Chest palpation & inspection: normal inspection of the chest Resp Effort & Inspection: normal respiratory effort Auscultation: clear to auscultation bilaterally Cardio Jugular venous distension: no JVD Rate: regular rate Rhythm: regular rhythm GI Inspection: Yes normal to inspection Palpation (GI): Soft to palpation, not firm, nontender and no guarding Percussion: Yes normal to percussion Auscultation: normal bowel sounds Skin General skin exam: no rashes or lesions noted Lesions: no lesions Rashes: no rashes Neuro General: patient oriented x3 Cranial nerves: Yes CN's II-XII intact bilaterally Cognition (Neuro): normal cognition Extrem General: Yes normal to inspection Course Reevaluation(s) Reevaluation #1: feels better tropi negative ,EKG normal,most likely costocondritis pain reproducible with palpations Time: 11:54 Medications Administered Discontinued Medications Generic Name Dose Route Start Last Admin Trade Name Fiordaliza PRN Reason Stop Dose Admin Tramadol HCl 50 mg 08/07/23 09:35 08/07/23 09:48 Tramadol Hcl 50 Mg Tablet PO 08/07/23 09:36 50 mg ONCE ONE Administration Medical Decision Making Medical Decision Making [facility] Narrative: prsented with lower chest pain above lower sternum,he had sever ED visit for same complaints in the past,will do EKG/labs Differential Diagnosis Differential Diagnoses: The differential diagnosis associated with the presentation includes atypical chest pain/ACS/costochondritis Admission/Observation Consideration of admission/observation: Escalation of care including admission/observation considered Lab Data [facility] Lab Attestation statement: I reviewed the patient's lab results. negative tropi 08/07/23 09:45 08/07/23 09:45 Labs: Lab Results 08/07/23 Range/Units 09:45 WBC 5.8 (4.8-10.8) X10*3/uL RBC 5.21 (4.60-5.80) X10*6/uL Hgb 16.4 (14.0-18.0) g/dl Hct 46.8 (42.0-52.0) % MCV 89.8 (80.0-98.0) fL MCH 31.5 (27.0-33.0) pg MCHC 35.0 (31.0-36.0) g/dl RDW 11.9 (11.0-16.0) % Plt Count 179 (160-400) X10*3/uL MPV 8.4 L (9.4-12.4) fL Immature Gran % (Auto) 0.3 (0.0-0.4) % Neut % (Auto) 63.3 (45-73) % Lymph % (Auto) 23.4 (20-40) % Vigo % (Auto) 11.4 H (2-11) % Eos % (Auto) 1.4 (0-4) % Baso % (Auto) 0.2 (0-2) % Lymph # (Auto) 1.4 (1.2-4.9) X10*3/uL Vigo # (Auto) 0.7 (0.1-1.2) X10*3/uL Eos # (Auto) 0.1 (0.0-0.4) X10*3/uL Baso # (Auto) 0.0 (0.0-0.2) X10*3/uL Abs Immat Gran (auto) 0.02 (0.00-0.03) X10*3/uL Absolute Neuts (auto) 3.7 (2.0-8.3) x10*3/uL Absolute Nucleated RBC 0.000 (0.0-0.012) X10*3/uL Nucleated RBC % (auto) 0.0 (0.0-0.2) /100WBC Sodium 137 (135-145) mmol/L Potassium 4.1 (3.3-5.1) mmol/L Chloride 103 (96-108) mmol/L Carbon Dioxide 24 (22-29) mmol/L Anion Gap 14 (12-20) BUN 14 (9-16) mg/dL Creatinine 0.82 (0.5-1.4) mg/dL Estim Creat Clear Calc 113.7 Estimated GFR > 60 Random Glucose 164 H (60-115) mg/dL Calcium 9.5 (8.4-10.2) mg/dL Total Bilirubin 0.6 (0.0-1.0) mg/dL AST 23 (5-37) U/L ALT 27 (0-40) U/L Alkaline Phosphatase 37 L (39-117) U/L Troponin I High Sens < 2.7 (<3.5-35.0) ng/L Total Protein 7.8 (6.5-8.0) g/dL Albumin 4.6 (3.5-5.0) g/dL Lipase 27 (8-78) U/L Independent Interpretation I performed an independent interpretation of an: EKG Interpretation: normal EKG Radiology Impression Discussion of test interpretation with radiology: I have reviewed the radiologist's reading. Radiologist Impression: EXAMINATION: XR CHEST CLINICAL INFORMATION: Chest pain COMPARISON: None available. TECHNIQUE: Frontal view of the chest was obtained. FINDINGS: No significant abnormality is noted involving the heart, lungs, mediastinum, bony thorax or soft tissues. XR/XR chest 1V IMPRESSION: Unremarkable chest examination. Dictated By: Tomas Sauceda MD Signed By: <Electroni External Record Review External record reviewed: Inpatient record Discharge Plan Discharge Clinical Impression: Chest pain, non-cardiac Patient Disposition: Home, Self-Care Instructions: Chest Pain (DC) Additional Instructions: Follow-up with your primary care physician return to emergency department if you worse any concern Prescriptions: No Action gabapentin 400 mg capsule 400 mg PO BEDTIME 30 Days Qty: 30 11RF methylprednisolone [Methylpred DP] 4 mg tablets,dose pack 4 mg PO PER PKG DIR Qty: 21 0RF naproxen 500 mg tablet 500 mg PO BID PRN (Reason: pain) Qty: 20 0RF oxycodone 5 mg capsule 5 mg PO Q8H PRN (Reason: pain) Qty: 12 0RF metronidazole 0.75 % gel 1 appl topical BID Qty: 45 0RF ibuprofen 600 mg tablet 600 mg PO Q6H PRN (Reason: pain) Qty: 30 0RF lidocaine [Lidoderm] 5 % adhesive patch,medicated 1 patch topical DAILY Qty: 30 0RF Rx Instructions: leave on most painful area for up to 12 hrs lisinopril 30 mg tablet 30 mg PO DAILY cyclobenzaprine 10 mg tablet 10 mg PO BID 30 Days Qty: 60 8RF amitriptyline 25 mg tablet 25 mg PO BEDTIME 30 Days Qty: 30 8RF Referrals: Physician,Unknown J [Primary Care Provider] - 2 days
[2023-08-07 10:05] VITALS: BP 126/82; PULSE 67; RESP 14; O2SAT 98
[2023-08-07 12:00] VITALS: PULSE 77; RESP 19; O2SAT 99
== END 2023-08-07 12:05 | disposition home or self-care (01) ==
PROVIDERS: Emergency Provider Emergency Medicine
DX: R07.89 Other chest pain (principal); I10 Essential (primary) hypertension; C67.9 Malignant neoplasm of bladder, unspecified; M94.0 Chondrocostal junction syndrome [Tietze]; Z79.899 Other long term (current) drug therapy
CPT/HCPCS: 36415; 71045; 80053; 83690; 84484; 85025; 93005; 99283; 99284

== ENCOUNTER 2024-03-12 08:14 | Outpatient (REF) | payer MEDICAID, SELFPAY ==
[2024-03-12 09:49] LABS: PSA,Total (Free>4and<10) 1.18 ng/mL (0.00-4.00)
== END 2024-03-12 08:15 | disposition home or self-care (01) ==
LOC: HO.LAB 08:14
PROVIDERS: PCP Physician Assistant; Visit Provider Urology
DX: Z12.5 Encounter for screening for malignant neoplasm of prostate (principal); C67.9 Malignant neoplasm of bladder, unspecified
CPT/HCPCS: 36415; 84153

== ENCOUNTER 2024-03-19 13:04 | Outpatient (AMB) | payer MEDICAID, SELFPAY ==
--- NOTE | 2024-03-19 13:20 | A.OFFVIS_ITS ---
Intake Visit Reasons: 1y/cysto/PSA Intake Note: Patient is present for Cystoscopy & PSA Results( cysto cancelled) Urology Med: none Antibiotic Allergy:none Blood Thinner: none Allergies No Known Allergies Allergy (Verified 08/07/23 09:13) HPI Comments Details: Chris is a pleasant male. He is a patient of Dr. Goodman. He is seen for the following urologic conditions - bladder cancer Georgian translation provided in office by qualified medical records clerk No cystoscopy this year Will check next year with ultrasound Bladder cancer Per patient has prior history of bladder cancer Per hospital record 2018 had procedure for right distal ureteric stricture Cystoscopy 02/23 NAD 12 month follow-up check PSA [facility] Medical History (Updated 03/19/24 @ 13:21 by Matthieu Cam MD) Bladder cancer Tietze syndrome HTN (hypertension) Family History Other Family history non-contributory Social History Alcohol intake: never Review of Systems Const Denies chills and Denies fever(s) Card Reports no additional complaints and Denies syncope Resp Denies cough GI Denies abdominal pain and Denies heartburn Reports as per HPI and Denies change in libido Neuro Denies syncope Psych Denies change in libido Endo Denies change in libido Physical Exam Const General: cooperative, healthy appearing, comfortable and no acute distress Orientation/consciousness: patient oriented x3 HEENT Face and sinus: Yes normal facial exam Mouth: moist mucous membranes Neck Neck: Yes normal visual inspection, Yes full ROM and Yes trachea midline Chest Chest palpation & inspection: normal inspection of the chest Resp Effort & Inspection: normal respiratory effort, able to speak in complete sentences and no respiratory distress GI Inspection: Yes normal to inspection Back/Spine/Pelvis Cervical Spine: normal cervical lordosis Thoracic/Lumbar Spine: thoracic and lumbar spine normal to inspection Skin General skin exam: no rashes or lesions noted Neuro General: patient oriented x3, gait normal, tone normal and moves all extremities Extrem General: Yes normal to inspection and Yes capillary refill normal Assessment & Plan Assessment & Plan (1) Nephrolithiasis: Code(s): N20.0 - Calculus of kidney Category: Medical (2) Bladder cancer: Code(s): C67.9 - Malignant neoplasm of bladder, unspecified Category: Medical Plan 12 month follow-up imaging Check cysto Orders: Orders US renal BI 03/19/24 N20.0 - Calculus of kidney US renal BI 12 Months N20.0 - Calculus of kidney Patient Instructions: Imaging studies, laboratory and physical exam results were discussed and reviewed in detail. No major barriers to patient understanding were identified. An opportunity to ask questions regarding the treatment plan was provided. All questions were answered. The patient expressed understanding and agreement with the above treatment plan. The patient is aware they should contact our office by phone for worsening of their current condition or the appearance of new urologic symptoms. Compliance is encouraged with any medications and followup testing that is ordered. It is a privilege to participate in the urologic care of your patient. If you have any questions or concerns regarding treatment for the above conditions, or other urologic issues, please do not hesitate to contact me. The office telephone contact is [phone]. This note is constructed using voice recognition software. While every effort has been made to ensure accuracy motion picture cameraman errors may have been included. Yours sincerely, Dr Matthieu Cam MD, [facility] - Urology Providers of Expert, Compassionate Care for the Genitourinary System Coding Level of Care Code Est Pt Level 4 (53420) Diagnoses Nephrolithiasis N20.0 Bladder cancer C67.9
== END 2024-03-19 13:52 | disposition home or self-care (01) ==
PROVIDERS: Visit Provider Urology
DX: N20.0 Calculus of kidney (principal); Z85.51 Personal history of malignant neoplasm of bladder
CPT/HCPCS: 99214

== ENCOUNTER → 2024-03-19 13:04 | Outpatient (BNVA) | payer MEDICAID, SELFPAY | PROVIDERS: Visit Provider Urology | DX: N20.0 Calculus of kidney (principal); C67.9 Malignant neoplasm of bladder, unspecified; Z53.9 Procedure and treatment not carried out, unspecified reason | CPT/HCPCS: 99212 ==

== ENCOUNTER 2024-09-13 14:46 | Emergency (ER) | payer MEDICAID, SELFPAY ==
--- NOTE | ~2024-09-13 | US_ITS ---
EXAMINATION: US ABDOMEN LIMITED CLINICAL INFORMATION: Right upper quadrant pain. COMPARISON: Renal ultrasound 03/20/2020. TECHNIQUE: Real-time imaging of the gallbladder. FINDINGS/ US/US abdomen limited IMPRESSION: Normal sonographic appearance of the gallbladder. No cholelithiasis, gallbladder wall thickening or pericholecystic inflammatory changes. Negative Demarco's sign. No biliary ductal dilatation. The common bile duct measures 0.4 cm in diameter. Electronically signed by: Milka Ojeda MD 09/13/2024 05:09 PM EST
[2024-09-13 15:06] VITALS: BP 127/76; PULSE 60; RESP 18; TEMP 37; O2SAT 99; BMI 25.6
--- NOTE | 2024-09-13 15:14 | ED_ITS ---
HPI - General Adult General Chief complaint: Abdominal Pain Stated complaint: abd pain Time Seen by Provider: 09/13/24 21:31 Source: patient and old records reviewed Mode of arrival: ambulatory Limitations: no limitations History of Present Illness ED Provider: DIXIE VENCES narrative: 49 yo male with PMH of HTN, renal stones, bladder cancer, costochondritis here with c/o lower sternum pain but denies n/v/d fevers symptoms worse with touching it. Went to [facility] on 09/08 had bedside US showing gallstones so he came here due to persistent pain. He has had pain in that area with his Tietze syndrome. Not made worse with eating. complaint: lower sternum pain Onset (ago): day(s) (several) Location: chest Radiation: non-radiation Severity: moderate Quality: dull and constant Pain Consistency: constant Relieving factors: none Exacerbating factors: other (palpation) Associated symptoms: denies other symptoms Treatments prior to arrival: none Related Data Home Medications ?Medication ?Instructions ?Recorded ?Confirmed lisinopril 30 mg tablet 30 mg PO DAILY blood pressure 01/24/23 01/24/23 Previous Rx's ?Medication ?Instructions ?Recorded methylprednisolone 4 mg tablets in 4 mg PO PER PKG DIR #21 ea 01/02/21 a dose pack (Methylpred DP) naproxen 500 mg tablet 500 mg PO BID PRN pain #20 tabs 06/10/21 oxycodone 5 mg capsule 5 mg PO Q8H PRN pain #12 caps 10/06/21 metronidazole 0.75 % topical gel 1 appl topical BID #45 grams 06/20/22 amitriptyline 25 mg tablet 25 mg PO BEDTIME 30 days #30 tabs 09/02/22 gabapentin 400 mg capsule 400 mg PO BEDTIME 30 days #30 caps 09/03/22 cyclobenzaprine 10 mg tablet 10 mg PO BID 30 days #60 tabs 10/30/22 ibuprofen 600 mg tablet 600 mg PO Q6H PRN pain #30 tabs 07/10/23 lidocaine 5 % topical patch 1 patch topical DAILY #30 ea 07/11/23 (Lidoderm) Allergies Allergy/AdvReac Type Severity Reaction Status Date / Time No Known Allergies Allergy Verified 09/13/24 15:08 Review of Systems 2 Review of Systems: Constitutional : No Weight loss, No Fever, No Chills ENT/Mouth : No sore throat, No Rhinorrhea Eyes: No Eye Pain, No Swelling Cardiovascular : pos Chest Pain, no SOB, no Dyspnea on Exertion, No Orthopnea, No Edema, No Palpitations Respiratory : No Cough, No Sputum Gastrointestinal : no Nausea, No Vomiting, No Diarrhea, No abdominal Pain, No Hematochezia, No Melena Genitourinary : No Dysuria, No Urinary Frequency Musculoskeletal : No joint pain, No Myalgias, No Joint Swelling Skin : No Skin Lesions, No rash Neuro : No Weakness, No Numbness, No Dizziness, No Headache All other systems reviewed and are negative [facility] Past Medical History Attestation statement: The following information was validated with the patient. Source: old records reviewed Medical History Bladder cancer Tietze syndrome HTN (hypertension) Family History Family History Other Family history non-contributory Social History Social History (Updated 09/13/24 @ 21:33 by Teressa Ko DO) Alcohol intake: never Patient Tobacco Use Status: Never used Tobacco Advance Directives: No Advance Directives Information Provided: No Do you have a plan to hurt others: No Plan Physical Exam ED Vital Signs: Vital Signs - 24 hr 09/13/24 15:06 Temperature 98.6 F Pulse Rate 60 Respiratory Rate 18 Blood Pressure 127/76 Pulse Oximetry 99 Oxygen Delivery Method Room Air BMI result Body Mass Index 25.6 Appearance: Alert. Oriented X3. No acute distress. Eyes: Pupils equal, round and reactive to light. ENT: Pharynx normal. Neck: Normal inspection. Neck supple. CVS: Normal heart rate and rhythm. Pulses normal. Respiratory: No respiratory distress. Breath sounds normal. Abdomen: Soft and nontender. no prince's sign, ttp along lower xiphoid reproduces pain Skin: Skin warm and dry. Normal skin color. Normal skin turgor. Extremities: No lower extremity edema. No calf ttp Neuro: Oriented X 3. No motor deficit. No sensory deficit. Course Course Course Narrative: RME performed by Viki Suggs PA-C. Patient is a 49 year old assigned male at presenting to the emergency department with right upper quadrant pain. Patient states he was recently seen at [facility] and told he had gallstones but did not have surgery. Patient states that he is having worse pain. Detailed physical exam and review of systems are deferred to the fabricating machine operator. Labs and imaging ordered. Patient placed back in the waiting room pending room availability and results. Medical Decision Making Medical Decision Making [facility] Narrative: 49 yo male with PMH of HTN, renal stones, bladder cancer here with c/o lower sternum pain hx of same in past with his costochondritis came here as bedside US at [facility] showed a gallstone. No associated n/v/d not made worse with eating - at this time will repeat labs, US but it seems more xiphoid pain than anything. Differential Diagnosis Differential Diagnoses: The differential diagnosis associated with the presentation includes gastritis, bililary colic, costochondritis Admission/Observation Consideration of admission/observation: Escalation of care including admission/observation considered work up negative labs normal US negative CBD normal - bili normal lipase normal can follow up as outpatient Lab Data [facility] Lab Attestation statement: I reviewed the patient's lab results. 09/13/24 15:26 09/13/24 15:26 Labs: Lab Results 09/13/24 Range/Units 15:26 WBC 5.5 (4.8-10.8) X10*3/uL RBC 5.10 (4.60-5.80) X10*6/uL Hgb 16.1 (14.0-18.0) g/dl Hct 46.2 (42.0-52.0) % MCV 90.6 (80.0-98.0) fL MCH 31.6 (27.0-33.0) pg MCHC 34.8 (31.0-36.0) g/dl RDW 12.0 (11.0-16.0) % Plt Count 193 (160-400) X10*3/uL MPV 8.1 L (9.4-12.4) fL Immature Gran % (Auto) 0.2 (0.0-0.4) % Neut % (Auto) 53.1 (45-73) % Lymph % (Auto) 34.3 (20-40) % Bailey % (Auto) 10.0 (2-11) % Eos % (Auto) 2.0 (0-4) % Baso % (Auto) 0.4 (0-2) % Lymph # (Auto) 1.9 (1.2-4.9) X10*3/uL Bailey # (Auto) 0.6 (0.1-1.2) X10*3/uL Eos # (Auto) 0.1 (0.0-0.4) X10*3/uL Baso # (Auto) 0.0 (0.0-0.2) X10*3/uL Abs Immat Gran (auto) 0.01 (0.00-0.03) X10*3/uL Absolute Neuts (auto) 2.9 (2.0-8.3) x10*3/uL Absolute Nucleated RBC 0.000 (0.0-0.012) X10*3/uL Nucleated RBC % (auto) 0.0 (0.0-0.2) /100WBC Sodium 139 (135-145) mmol/L Potassium 4.2 (3.3-5.1) mmol/L Chloride 103 (96-108) mmol/L Carbon Dioxide 27 (22-29) mmol/L Anion Gap 13 (12-20) BUN 11 (9-16) mg/dL Creatinine 1.04 (0.5-1.4) mg/dL Estim Creat Clear Calc 92.2 Estimated GFR > 60 Random Glucose 93 (60-115) mg/dL Calcium 10.5 H D (8.4-10.2) mg/dL Magnesium 2.1 (1.6-2.6) mg/dL Total Bilirubin 0.5 (0.0-1.0) mg/dL AST 24 (5-37) U/L ALT 34 (0-40) U/L Alkaline Phosphatase 29 L (39-117) U/L Total Protein 8.0 (6.5-8.0) g/dL Albumin 4.9 (3.5-5.0) g/dL Independent Interpretation I performed an independent interpretation of an: Ultrasound (normal ) Radiology Impression Discussion of test interpretation with radiology: I have reviewed the radiologist's reading. External Record Review External record reviewed: Office record Discharge Plan Discharge Clinical Impression: Acute costochondritis Patient Disposition: Home, Self-Care Instructions: Costochondritis (ED) Additional Instructions: labs and ultrasound reassuring today no gallstones seen return for any worsening symptoms or concerns. Prescriptions: No Action gabapentin 400 mg capsule 400 mg PO BEDTIME 30 Days Qty: 30 11RF methylprednisolone [Methylpred DP] 4 mg tablets,dose pack 4 mg PO PER PKG DIR Qty: 21 0RF naproxen 500 mg tablet 500 mg PO BID PRN (Reason: pain) Qty: 20 0RF oxycodone 5 mg capsule 5 mg PO Q8H PRN (Reason: pain) Qty: 12 0RF metronidazole 0.75 % gel 1 appl topical BID Qty: 45 0RF ibuprofen 600 mg tablet 600 mg PO Q6H PRN (Reason: pain) Qty: 30 0RF lidocaine [Lidoderm] 5 % adhesive patch,medicated 1 patch topical DAILY Qty: 30 0RF Rx Instructions: leave on most painful area for up to 12 hrs lisinopril 30 mg tablet 30 mg PO DAILY cyclobenzaprine 10 mg tablet 10 mg PO BID 30 Days Qty: 60 8RF amitriptyline 25 mg tablet 25 mg PO BEDTIME 30 Days Qty: 30 8RF Print Language: Kyrgyz
[2024-09-13 15:29] LABS: MANUAL DIFF FLAG NO
[2024-09-13 15:32] LABS: Basophils Percent Auto 0.4 % (0-2); Eosinophils Absolute Auto 0.1 X10*3/uL (0.0-0.4); Hematocrit 46.2 % (42.0-52.0); Hemoglobin 16.1 g/dl (14.0-18.0); Imm Gran Abs Auto 0.01 X10*3/uL (0.00-0.03); Imm Gran Pct Auto 0.2 % (0.0-0.4); Lymphocytes Absolute Auto 1.9 X10*3/uL (1.2-4.9); Lymphocytes Percent Auto 34.3 % (20-40); Mean Corpuscular HGB Conc 34.8 g/dl (31.0-36.0); Mean Corpuscular Hemoglobin 31.6 pg (27.0-33.0); Mean Corpuscular Volume 90.6 fL (80.0-98.0); Mean Platelet Volume 8.1 fL (9.4-12.4); Monocytes Absolute Auto 0.6 X10*3/uL (0.1-1.2); Neutrophils Absolute Auto 2.9 x10*3/uL (2.0-8.3); Neutrophils Percent Auto 53.1 % (45-73); Platelet Count 193 X10*3/uL (160-400); White Blood Count 5.5 X10*3/uL (4.8-10.8)
[2024-09-13 15:48] LABS: Alanine Aminotransferase 34 U/L (0-40); Albumin Level 4.9 g/dL (3.5-5.0); Alkaline Phosphatase 29 U/L (39-117); Anion Gap 13 (12-20); Aspartate Amino Transferase 24 U/L (5-37); Bilirubin Total 0.5 mg/dL (0.0-1.0); Blood Urea Nitrogen 11 mg/dL (9-16); Calcium 10.5 mg/dL (8.4-10.2); Carbon Dioxide 27 mmol/L (22-29); Chloride 103 mmol/L (96-108); Creatinine Clr Calc Pharmacy 92.2; Estimated Glomerular Filt Rate > 60; Glucose Random 93 mg/dL (60-115); Magnesium 2.1 mg/dL (1.6-2.6); Potassium 4.2 mmol/L (3.3-5.1); Sodium 139 mmol/L (135-145)
[2024-09-13 22:00] VITALS: BP 119/74; PULSE 74; RESP 18; TEMP 36.6; O2SAT 99
[2024-09-13 22:11] LABS: Lipase 31 U/L (8-78)
[2024-09-13 22:28] VITALS: BP 119/74; PULSE 74; RESP 18; TEMP 36.6; O2SAT 99
== END 2024-09-13 22:28 | disposition home or self-care (01) ==
PROVIDERS: Physician Assistant Medical; Emergency Provider Emergency Medicine; PCP Physician Assistant
DX: R10.2 Pelvic and perineal pain (principal); R10.11 Right upper quadrant pain; I10 Essential (primary) hypertension; Z79.899 Other long term (current) drug therapy
CPT/HCPCS: 36415; 76705; 80053; 83690; 83735; 85025; 99283

== ENCOUNTER 2025-03-03 09:07 | Outpatient (REF) | payer MEDICAID, SELFPAY ==
--- NOTE | ~2025-03-03 | US_ITS ---
CLINICAL HISTORY: N20.0 - Calculus of kidney US Renal Comparison: None Findings: Right kidney normal size in measures 11 cm x 5.3 cm x 5.2 cm. 5 mm cyst in the midpole. Left kidney normal size and measures 11.6 cm x 6.2 cm x 5.5 cm. No collecting system dilatation of either kidney. Normal color Doppler. IMPRESSION: 1. 5 mm simple cyst in midpole right kidney. Otherwise unremarkable study. This document has been electronically signed by: Nguyen Goyal MD on 03/03/2025 20:55:47
--- OUTSIDE RECORDS SUMMARY | 2025-03-03 09:48 | XMS_ITS | Encounter Summary ---
Author Organization [facility] Address [address] [place] [address] Care Team Providers Care Care Process Manager Name Role Phone Clau Goodman PA-C Primary Care Provider + [phone] Encounter Details Date Type Department Care Team ([facility] st Contact Info) Description 01/28/2025 Results Follow-Up [facility] [address] [place] [id number] Clau Goodman PA-C [address] [place] [address] Social History Tobacco Use Types Packs/Day Years Used Date Smoking Tobacco: Never Passive Smoke Exposure: Never Smokeless Tobacco: Never Alcohol Use Standard Drinks/Week Comments Never 0 (1 standard drink = 0.6 oz pur e alcohol) Social Connections Answer Date Recorded Connectedness 1 10/04/2024 Financial Resource Strain Answer Date R ecorded Financial Resource Strain 1 2023 Stress Answer Date Recorded Stress 1 10/04/2024 Physical Activity Answer Date Recorded Physical Activity 0 06/26/2019 Food Insecurity Answer Date Recorded Food 1 10/04/2024 Transportation Needs Answer Date Record ed Transportation 1 10/04/2024 Housing Stability Answer Date Recorded Housing 1 10/04/2024 Safety and Environment Answer Date Javier rded Safety 0 09/19/2023 Utilities Answer Date Recorded Utilities 1 10/04/2024 Employment Answer Date Recorded Stress 0 09/19/2023 Sex and Gender Information Value Date Recorded Sex Assigned at Male 06/15/2019 11:57 AM PDT Legal Sex Male 11:58 AM PDT Gender Identity Male 06/15/2019 11:57 AM PDT Sexual Orientation Straight 06/15/2019 11 :57 AM PDT Occupation Industry Job Start Date Job End Date [email or web address] Not on file Not on file Not on file documented as of this encounter Plan of Treatment Upcoming Encounters Date Type Department Care Team (Late st Contact Info) Description 03/23/2025 9:20 AM EDT Office Visit [facility] [address] [place] [phone] Clau Goodman PA-C [address] [place] [id number] documented as of this encounter Visit Diagnoses Not on filedocumented in this encounter Additional Health Concerns Assessment Noted Time PHQ-9 Depression Total Score: 0 01/21/20 25 2:03 PM PDT documented as of this encounter Care Teams Care Process Manager Relationship Specialty Start Date End Date Clau Goodman PA-C [address] [place] [id number] PCP - General Internal Medicine 07/17/22 documented as of this encounter
--- OUTSIDE RECORDS SUMMARY | 2025-03-03 09:49 | XMS_ITS | Clinical Summary ---
Author Organization [facility] Address [address] [place] [address] Care Team Providers Care Manager Loss Prevention Name Role Phone Clau Goodman PA-C Primary Care Provider Source Comments PLEASE NOTE, if this patient is a minor, it may be UNLAWFUL to discuss sensitive information that is contained in these records (such as FAMILY PLANNING, MENTAL HEALTH or SUBSTANCE ABUSE) with the minor patient's parent or other person without the patient's specific authorization.[facility] Allergies No known active allergies Medications BANOPHEN 50 mg capsuleIndicatio ns:Viral upper respiratory tract infection,Acute rhinitis TAKE 1 CAPSULE BY MOUTH AT BEDTIME NEEDED FOR RHINITIS OR SLEEP 90 Capsule 12/03/19 23 Active traMADoL (ULTRAM) 50 mg tabletIndication s:Left shoulder pain, unspecified chronicity,Angella e syndrome Take 1 Tablet by mouth every 6 (six) hours as needed for pain 15 Tablet 08/05/20 23 Active silver sulfADIAZINE (SILVADENE) 1 % creamIndications :Superficial burn of left forearm, initial encounter Apply topically once daily 20 g 08/05/20 23 Active gabapentin (NEURONTIN) 100 mg capsuleIndicatio ns:Tietze syndrome,Costoch ondral pain Take 1 Capsule by mouth 3 (three) times daily 90 Capsule 3 10/22/20 23 Active atorvastatin (LIPITOR) 10 mg tabletIndication s:hypercholester olemia Take 1 Tablet by mouth nightly at bedtime Indications: high cholesterol 90 Tablet 1 07/30/20 24 Active meclizine 25 mg chewable tabletIndication s:Dizziness Place 1 Tablet into mouth, chew and swallow 3 (three) times daily as needed for nausea 90 Tablet 08/27/20 24 Active lisinopriL 20 mg tabletIndication s:Essential hypertension TAKE 1 TABLET BY MOUTH DAILY 90 Tablet 2 10/25/20 24 Active ibuprofen 800 mg tabletIndication s:Viral upper respiratory tract infection,Acute rhinitis Take 1 Tablet by mouth 3 (three) times daily as needed for headaches or moderate pain 30 Tablet 2 12/08/19 25 Active fluticasone (FLONASE) 50 mcg/actuation nasal sprayIndications :Acute viral sinusitis Place 1 [place] in both nostrils once daily 16 g 1 01/21/20 25 Active acetaminophen (TYLENOL 8 HOUR) 650 mg CR tabletIndication s:Headaches Take 1 Tablet by mouth every 8 (eight) hours as needed for pain 30 Tablet 01/21/20 25 Active cetirizine (ZYRTEC) 10 mg tabletIndication s:Headaches,Acut e rhinitis TAKE 1 TABLET BY MOUTH DAILY 90 Tablet 01/29/20 25 Active lidocaine (LIDODERM) 5 % patchIndications :Upper back pain Place 1 Patch onto the skin once daily (every 24 hours) Place 1 patch to clean/dry/hairl ess skin where most painful and leave on for 12 hours. Remove patch and wait 12 hours before putting on a new patch. 30 Patch 2 02/12/20 25 Active baclofen 20 mg tabletIndication s:Upper back pain Take 1 Tablet by mouth 3 (three) times daily 180 Tablet 02/12/20 25 Active amoxicillin-pot clavulanate (AUGMENTIN) 875-125 mg per tabletIndication s:Subacute sinusitis, unspecified location Take 1 Tablet by mouth 2 (two) times daily for 7 days 14 Tablet 02/29/20 25 025 Active lidocaine (LIDODERM) 5 % patch APPLY 1 PATCH TOPICALLY TO THE SKIN DAILY. LEAVE ON MOST PAINFUL AREA FOR UP TO 12 HOURS 07/11/20 23 025 Discontin ued(Reord er (E-Cancel Not Sent)) baclofen (LIORESAL) 10 mg tabletIndication s:Tietze syndrome,Costoch ondral pain Take 1 Tablet by mouth 3 (three) times daily 90 Tablet 2 12/08/19 25 025 Discontin ued(Thera py completed /Not needed) Active Problems Problem Noted Date Diagnosed Date Controlled type 2 diabetes m janene without complication, without long-term current use of insulin ([facility]) 03/19/2023 Mixed hyperlipidemia 03/19/2023 Colon cancer screening 03/19/2023 Malignant neoplasm of urinary bladder ([facility]) 03/19/2023 Overview (03/19/2023): Following up with [facility] urologist group at [place] with Matthieu Cam MD. Tietze syndrome- see notes 05/31/2022 Overview (05/31/2022): May 2022: Pt was referred for a functional capacity test at [facility] to determine degree of disability. May [address]22 [facility] Pain management Mr. 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 He visited this office few times in the past with complains on pain in anterior chest wall. He also visited emergency room with chest pain where pulmonary and cardiac sources of pain were ruled out. With diagnosis of atypical chest pain and sternal costochondritis he was sent to pain management office. The treatment of this condition involves administration of anticonvulsants, antidepressants, NSAIDs, physical therapy, low iimpact aerobic exercises, stretching exercises. All those modes of treatments were offered to the patient here, he was asking us to fill up a disability paperwork and state in the letter patient limitations. He was in exacerbation of his syndrome at that time and I wrote limitation on the weightlifting in the letter and avoidance of climbing and moving heavy objects. After that patient visited this office again in requested to fill up I disability paperwork from his job stating that he is in severe medical condition. While these was found impossible to introduce into papers his today's request was to change his description of the condition as continuous instead of intermittent. I gladly change on the paperwork the condition from intermittent to continuous and that appeared to be satisfactory for the patient. While his condition in nature may be intermittent pain of costochondritis, if he continues to lift heavy objects more than 25 lb at his work this might as well be continuous while he lifting those objects. 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 That is why I changed previous description of intermittent to continuous No new appointment is necessary unless patient requesting new appointment. The condition description in previous disability paperwork was changed from intermittent to continuous on the reasons described above. The patient is informed that no new disability paperwork will be filled up for him at this office. He will be taking his demands to fill up disability paperwork elsewhere. I suggested local physical Medicine and Rehabilitation doctors, local occupational therapy offices to perform functional capacity evaluation studies and/or office of primary care physician. July 2021 Pt requesting to transfer care to [facility] Pain management [facility] Pain Management Note Office 06/15/2021 DIAGNOSIS Costochondral chest pain. Myofascial pain. 46 y/o M with costochondral/myofascial pain s/p trigger point injections which provided him significant pain relief, but have eventually worn off. Mr. Morales is frustrated because he feels the effect of the injections he received was limited by the fact that he had to return to his work at [employer] which requires him to lift and move a variety of heavy boxes. Today, he is seeking a note which would encourage [employer] to change his assignment to something with a weight restriction. Dr. Dutton and I are uncomfortable in performing this assessment, so we will refer him to Dr. Vasquez for a more comprehensive assessment. I also offered that we could offer him a repeat trigger point injection as he did feel that our most recent intervention did provide him with some relief. At this point he is uninterested in another procedure as he feels it will not correct the underlying issue of his work exacerbating the pain. After determining the appropriate style of work he should be performing, he is welcome to follow up with us for a repeat trigger point injection at his convenience. It would also be beneficial for Mr. Morales to undergo evaluation by gastroenterology to rule out other GI mediated causes of his pain. [facility] 01/2021 Costochondritis. 46yo male without significant medical history referred by PCP for chest pain. His pain is likely musculoskeletal pain due to costochondritis. Recent stress echo and cardiac workup was unremarkable and he obtains easily >4 METS at baseline. The pain has been gradual in onset, is achy, worse with lifting, reproducible with palpation, and relieved with rest after 20 mins, ice and NSAIDs. It is reasonable to trial physical therapy, continue oral NSAIDs, minimize Tylenol in the setting of fatty liver disease and trial trigger point injections. Denies anticoagulation, antibiotics and has not scheduled COVID vaccine. Plan Patient is a reasonable candidate for a trial of: Trigger Point injections Costochondral pain- please see notes 10/04/2021 Overview (05/31/2022): May 2022: Pt was referred for a functional capacity test at [facility] to determine degree of disability. May 2022 [facility] Pain management Mr. 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 He visited this office few times in the past with complains on pain in anterior chest wall. He also visited emergency room with chest pain where pulmonary and cardiac sources of pain were ruled out. With diagnosis of atypical chest pain and sternal costochondritis he was sent to pain management office. The treatment of this condition involves administration of anticonvulsants, antidepressants, NSAIDs, physical therapy, low iimpact aerobic exercises, stretching exercises. All those modes of treatments were offered to the patient here, he was asking us to fill up a disability paperwork and state in the letter patient limitations. He was in exacerbation of his syndrome at that time and I wrote limitation on the weightlifting in the letter and avoidance of climbing and moving heavy objects. After that patient visited this office again in requested to fill up I disability paperwork from his job stating that he is in severe medical condition. While these was found impossible to introduce into papers his today's request was to change his description of the condition as continuous instead of intermittent. I gladly change on the paperwork the condition from intermittent to continuous and that appeared to be satisfactory for the patient. While his condition in nature may be intermittent pain of costochondritis, if he continues to lift heavy objects more than 25 lb at his work this might as well be continuous while he lifting those objects. 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 That is why I changed previous description of intermittent to continuous No new appointment is necessary unless patient requesting new appointment. The condition description in previous disability paperwork was changed from intermittent to continuous on the reasons described above. The patient is informed that no new disability paperwork will be filled up for him at this office. He will be taking his demands to fill up disability paperwork elsewhere. I suggested local physical Medicine and Rehabilitation doctors, local occupational therapy offices to perform functional capacity evaluation studies and/or office of primary care physician. July 2021 Pt requesting to transfer care to [facility] Pain management [facility] Pain Management Note Office 06/15/2021 DIAGNOSIS Costochondral chest pain. Myofascial pain. 46 y/o M with costochondral/myofascial pain s/p trigger point injections which provided him significant pain relief, but have eventually worn off. Mr. Morales is frustrated because he feels the effect of the injections he received was limited by the fact that he had to return to his work at [employer] which requires him to lift and move a variety of heavy boxes. Today, he is seeking a note which would encourage [employer] to change his assignment to something with a weight restriction. Dr. Dutton and I are uncomfortable in performing this assessment, so we will refer him to Dr. Vasquez for a more comprehensive assessment. I also offered that we could offer him a repeat trigger point injection as he did feel that our most recent intervention did provide him with some relief. At this point he is uninterested in another procedure as he feels it will not correct the underlying issue of his work exacerbating the pain. After determining the appropriate style of work he should be performing, he is welcome to follow up with us for a repeat trigger point injection at his convenience. It would also be beneficial for Mr. Morales to undergo evaluation by gastroenterology to rule out other GI mediated causes of his pain. [facility] PAIN MANAGEMENT 01/2021 Costochondritis. 46yo male without significant medical history referred by PCP for chest pain. His pain is likely musculoskeletal pain due to costochondritis. Recent stress echo and cardiac workup was unremarkable and he obtains easily >4 METS at baseline. The pain has been gradual in onset, is achy, worse with lifting, reproducible with palpation, and relieved with rest after 20 mins, ice and NSAIDs. It is reasonable to trial physical therapy, continue oral NSAIDs, minimize Tylenol in the setting of fatty liver disease and trial trigger point injections. Denies anticoagulation, antibiotics and has not scheduled COVID vaccine. Plan Patient is a reasonable candidate for a trial of: Trigger Point injections Chest pain 08/25/2019 Overview (05/27/2022): 08/23/19 - Seen at [facility] c/o CP. Troponin and CXR neg. EKG shows PVC's. F/U PCP NICOLETTE on CPAP 06/15/2019 Overview (06/15/2019): 04/15/18 - Sleep study = moderately severe NICOLETTE [place] (nonalcoholic steatohepatitis) 06/15/2019 Overview (07/05/2019): 12/13/13 - Abd U/S: fatty infiltration, otherwise normal. 04/21/17 - Abdominal U/S: IMPRESSION: liver of diffuse increased echogenicity. This is nonspecific, but c/w diffuse fatty infiltration. Otherwise, unremarkable abdominal U/S. Essential hypertension 06/15/2019 Overview (07/05/2019): 04/08/17 - Holter monitor done - NSR Hx of hematuria 06/15/2019 Encounters Date Type Department Care Team Description 02/28/2025 2:20 PM EDT Telemedicine Visit [address] [id number] Joel Blanc PA-C Subacute sinusitis, unspecified location (Primary Dx) 02/11/2025 11:20 AM EDT Office Visit [address] [address] Josue Cabrera FNP-C Martinez, Celestia Upper back pain (Primary Dx) 01/28/2025 Results Follow-Up [address] [address] Clau Goodman PA-C 01/20/2025 2:00 PM EDT Office Visit [address] [phone] Joel Blanc PA-C Acute viral sinusitis (Primary Dx); Headaches from Last 3 Months Immunizations Immunization Administration Dates Next Due PNEUMOCOCCAL CONJUGATE PCV 20 (Prevnar) 03/19/20 23 PNEUMOCOCCAL POLYSACCHARIDE PPV23 06/24/2018 [facility] State Funded Flu Vaccine 08/05/2013 TDAP 08/20/2017 ZOSTER VACCINE, RECOMBINANT (SHINGRIX) 3,03/19/2023 Family History Medical History Relation Name Comments Cancer Father prostate ca dx age 60's Diabetes Father Heart Problems Father [place] at age 71 Hypertension Father Diabetes Mother Hypertension Mother Diabetes Paternal Grandfather Relation Name Status Comments Father Mother Paternal Grandfather Social History Tobacco Use Types Packs/Day Years Used Date Smoking Tobacco: Never Passive Smoke Exposure: Never Smokeless Tobacco: Never Tobacco Cessation:Counseling Given: Yes Alcohol Use Standard Drinks/Week Comments Never 0 [...] Industry Job Start Date Job End Date [employer] Not on file Not on file Not on file Last Filed Vital Signs Vital Sign Reading Time Taken Comments Blood Pressure 122/76 02/11/2025 11:21 AM EDT Pulse 72 02/11/2025 11:21 AM EDT Temperature 37.2 ??C (98.9 ??F) 02/11/2025 11:21 AM E DT Respiratory Rate 15 02/11/2025 11:21 AM EDT Oxygen Saturation 97% 01/20/2025 2:03 PM EDT Inhaled Oxygen Concentration - - Weight 83.5 kg (184 lb) 02/11/2025 11:21 AM EDT Height 172.7 cm (5' 8 ) 02/11/2025 11:21 AM EDT Body Mass Index 27.98 02/11/2025 11:21 AM EDT Plan of Treatment Upcoming Encounters Date Type Department Care Team (Late st Contact Info) Description 03/23/2025 9:20 AM EDT Office Visit [facility] [address] [place] [id number] Clau Goodman PA-C [address] [place] [address] Health Maintenance Due Date Last Done Comments Anxiety Screening 1975 Imm-Hepatitis B (1 of 3 - 19+ 3-dose series) 01/06/1992 CT Colonography 2018 Colonoscopy 2018 Flexible Sigmoidoscopy 2018 Annual Preventive Care Visit 03/19/2024 03/19/2023, 06/15/2019 Urine Albumin Creatinine Ratio Screening 03/19/2024 03/19/2023, 02/04/2020 Dental Examination 03/21/2024 03/19/2023 (M anaged by Outside Provider) FIT/gFOBT 05/12/2024 05/12/2023 [id number] () 07/04/2024 Diabetes Foot Exam 12/26/2024 12/26/2023 Diabetes HbA1c 01/30/2025 08/02/2024, 03/04, 09/19/2023, Additional history exists Imm-Influenza (#1) 2025 08/05/2013 Postponed from 07/04/2024 (Patient postponement) Lipid Screening 08/02/2025 08/02/2024, 03/03, 03/19/2023, Additional history exists Serum Creatinine 09/07/2025 09/07/2024, , 08/02/2024, Additional history exists Tobacco Screening 10/04/2025 10/04/2024 Retinopathy Screening 10/18/2025 10/18/2024, 023 Colorectal Cancer Screening 05/12/2026 Fecal DNA 05/12/2026 05/12/2023 Imm-DTaP/Tdap/Td (2 - Td or Tdap) 08/20/2027 08/20/2017 HIV Screening Completed 08/21/2022, 08/21/2022 Hepatitis C Screening Completed 08/21/2022 Imm-Pneumococcal Completed 03/19/2023, 06/24/2018 Imm-Zoster, Recombinant Completed 08/05/2023, 03/19 Alcohol and Drug Screen Completed 01/21/20, 12/26/2023, 03/19/2023, Additional history exists Depression Annual Screen Completed 01/20/2025, 12/05 Procedures Procedure Name Priority Date/Time Associated Diagnosis Comments RADEX SPINE CERVICAL 2 OR 3 VIEWS Routine 02/11/2025 3:00 AM EDT Upper back pain REFERRAL TO SLEEP DISORDERS CLINIC Routine 01/24/2025 3:00 AM EDT NICOLETTE on CPAP EYE EXAM 10/18/2024 3:00 AM EST COMPREHENSIVE METABOLIC PANEL Routine 08/27/2024 12:17 PM EDT Dizziness LIPIDS W RFLX TO DIRECT LDL Routine 08/02/2024 11:00 AM EDT Controlled type 2 diabetes mellitus without complication, without long-term current use of insulin ([facility]) Essential hypertension HGA1C W/EAG Routine 08/02/2024 11:00 AM EDT Controlled type 2 diabetes mellitus without complication, without long-term current use of insulin ([facility]) COLOGUARD Routine 05/12/2023 3:00 AM EDT Colon cancer screening MICROALBUMIN/CREATINI NE RATIO, URINE, RANDOM Routine 03/19/2023 9:49 AM EDT Controlled type 2 diabetes mellitus without complication, without long-term current use of insulin ([facility]) HIV 1/2 AG & AB W/RFLX (4TH GEN) Routine 08/21/2022 1:50 PM EDT Routine lab draw HEPATITIS C AB W/RFLX HCV RNA, QT, RT PCR Routine 08/21/2022 1:50 PM EDT Routine lab draw from Last 3 Months or Most Recently Relevant to Health Maintenance Results * RADEX SPINE CERVICAL 2 OR 3 VIEWS (02/11/2025 3:00 AM EDT) 02/11/2025 3:00 AM EDT Josue Cabrera RN REVIEW-C IMG XRAY Final Res ult [facility] Corporate Office [address], [address] [place] [address], [place] [phone] * REFERRAL TO SLEEP DISORDERS CLINIC (01/24/2025 3:00 AM EDT) 01/24/2025 3:00 AM EDT Clau Goodman PA-C REFERRAL Final Result * EYE EXAM (10/18/2024 3:00 AM EST) 10/18/2024 3:00 AM EST Clau Goodman PA-C OTHER Edited Resul t - Final * (ABNORMAL) COMPREHENSIVE METABOLIC PANEL (08/27/2024 12:17 PM EDT) GLUCOSE 130 65 - 139 mg/dL [facility] Comment: ?Non-fasting reference interval UREA NITROGEN (BUN) 16 7 - 25 mg/dL [facility] CREATININE (blood) 0.82 0.70 - 1.30 mg/dL [facility] EGFR 106 > OR = 60 mL/min/1. 73m2 [facility] BUN/CREATININE RATIO SEE NOTE: [facility] Comment: ?? Not Reported: BUN and Creatinine are within ?? reference range. ? SODIUM 136 135 - 146 mmol/L [facility] POTASSIUM 4.2 3.5 - 5.3 mmol/L [facility] CHLORIDE 102 98 - 110 mmol/L [facility] CARBON DIOXIDE 27 20 - 32 mmol/L [facility] CALCIUM 9.5 8.6 - 10.3 mg/dL [facility] PROTEIN, TOTAL 7.2 6.1 - 8.1 g/dL [facility] ALBUMIN 4.6 3.6 - 5.1 g/dL [facility] GLOBULIN 2.6 1.9 - 3.7 g/dL (calc) [facility] ALBUMIN/GLOBULI N RATIO 1.8 1.0 - 2.5 (calc) [facility] BILIRUBIN, TOTAL 0.4 0.2 - 1.2 mg/dL [facility] ALKALINE PHOSPHATASE 32(L) 35 - 144 U/L [facility] AST 17 10 - 35 U/L [facility] ALT 29 9 - 46 U/L [facility] Blood Blood / Unknown 08/27/2024 1 2:17 PM EDT 08/27/2024 12:18 PM EDT Narrative [facility] - 08/28/2024 5:47 AM EDT FASTING:NO Henry Medrano PA-C LAB - BLOOD DRAW Final Result [facility] [address] [address], [facility] [address] [address] * (ABNORMAL) HGA1C W/EAG (08/02/2024 11:00 AM EDT) HEMOGLOBIN A1C 6.1(H) <5.7 % of total Hgb [facility] Comment: For someone without known diabetes, a hemoglobin A1c value between 5.7% and 6.4% is consistent with prediabetes and should be confirmed with a follow-up test. For someone with known diabetes, a value <7% indicates that their diabetes is well controlled. A1c targets should be individualized based on duration of diabetes, age, comorbid conditions, and other considerations. This assay result is consistent with an increased risk of diabetes. Currently, no consensus exists regarding use of hemoglobin A1c for diagnosis of diabetes for children. EAG (MG/DL) 128 mg/dL [facility] EAG (MMOL/L) 7.1 mmol/L [facility] Blood Blood / Unknown 08/02/2024 1 1:00 AM EDT 08/02/2024 11:00 AM EDT Narrative [facility] - 08/03/2024 9:21 AM EDT FASTING:YES Clau Goodman PA-C LAB - BLOOD DRAW Edited Resu lt - Final [facility]auses [facility] [address] [address], [facility] [place] [address] [place] [address] * (ABNORMAL) LIPIDS W RFLX TO DIRECT LDL (08/02/2024 11:00 AM EDT) CHOLESTEROL, TOTAL 156 <200 mg/dL [facility] HDL CHOLESTEROL 30(L) > OR = 40 mg/dL [facility] TRIGLYCERIDES 231(H) <150 mg/dL [facility] Comment: If a non-fasting specimen was collected, consider repeat triglyceride testing on a fasting specimen if clinically indicated. Wojciech et al. J. of Clin. Lipidol. 2015;9:129-169. LDL-CHOLESTEROL 94 99 mg/dL (calc) [facility] Comment: Reference range: <100 Desirable range <100 mg/dL for primary prevention; ?? <70 mg/dL for patients with CHD or diabetic patients with > or = 2 CHD risk factors. LDL-C is now calculated using the Pancho-Garcia calculation, which is a validated novel method providing better accuracy than the Friedewald equation in the estimation of LDL-C. Pancho SS et al. LILLIAM. 2013;310(19): 4551-2115 (http://education.Pegastech/faq/YZD285) CHOL/HDLC RATIO 5.2(H) <5.0 (calc) [facility] NON-HDL CHOLESTEROL 126 <130 mg/dL (calc) [facility] Comment: For patients with diabetes plus 1 major ASCVD risk factor, treating to a non-HDL-C goal of <100 mg/dL (LDL-C of <70 mg/dL) is considered a therapeutic option. Blood Blood / Unknown 08/02/2024 1 1:00 AM EDT 08/02/2024 11:00 AM EDT Narrative [facility] - 08/03/2024 9:21 AM EDT FASTING:YES Clau REEDAmiare LAB - BLOOD DRAW Final Resul t Performing Organization Address City/[facility]/ZIP Co de Phone Number [facility] [address] [address], [facility] [address] [address] * COL[place]UARD (05/12/2023 3:00 AM EDT) Stool Stool specimen / Unknown 05/12/2023 3:00 AM EDT Clau REEDAlorumMary LAB - NO BLOOD DRAW Edited R esult - Final Performing Organization Address City/[facility]/ZIP Co de Phone Number [employer] [address] [place] [address], [address] [facility] [id number] [place] [address], * MICROALBUMIN/CREATININE RATIO, URINE, RANDOM (03/19/2023 9:49 AM EDT) CREATININE, RANDOM URINE 125 20 - 320 mg/dL [employer] [facility] MICROALBUMIN 0.2 mg/dL [employer] [facility] Comment: Reference Range Not established MICROALBUMIN/CREA TININE RATIO, RANDOM URINE 2 <30 mcg/mg creat [facility] Comment: The ADA defines abnormalities in albumin excretion as follows: Albuminuria Category ?Result (mcg/mg creatinine) Normal to Mildly increased ?? <30 Moderately increased ? 30-299 Severely increased ? > OR = 300 The ADA recommends that at least two of three specimens collected within a 3-6 month period be abnormal before considering a patient to be within a diagnostic category. Urine Urine specimen / Unknown 03/19/2023 9:49 AM EDT 03/19/2023 9:49 AM EDT Clau Goodman PA-C LAB - NO BLOOD DRAW Final Re sult Performing Organization Address City/[facility]/ZIP Co de Phone Number [employer] [address] [address], [employer] [facility] [address] [place] [address] * HEPATITIS C AB W/RFLX HCV RNA, QT, RT PCR (08/21/2022 1:50 PM EDT) HEPATITIS C ANTIBODY NON-REACT SEAN NON-REACT SEAN [employer] SIGNAL TO CUT-OFF 0.09 <1.00 [employer] Comment: HCV antibody was non-reactive. There is no laboratory evidence of HCV infection. In most cases, no further action is required. However, if recent HCV exposure is suspected, a test for HCV RNA (test code 99214) is suggested. For additional information please refer to http://education.PROnoise/faq/TJF58g5 (This link is being provided for informational/ educational purposes only.) Blood Blood / Unknown 08/21/2022 1 :50 PM EDT 08/21/2022 1:50 PM EDT Clau Goodman PA-C LAB - BLOOD DRAW Edited Resu lt - Final Performing Organization Address City/[facility]/ZIP Co de Phone Number [employer] [address] [address], [employer] [address] [address] * HIV 1/2 AG & AB W/RFLX (4TH GEN) (08/21/2022 1:50 PM EDT) HIV AG/AB, 4TH GEN NON-REAC TIVE NON-REAC TIVE [employer] Comment: HIV-1 antigen and HIV-1/HIV-2 antibodies were not detected. There is no laboratory evidence of HIV infection. PLEASE NOTE: This information has been disclosed to you from records whose confidentiality may be protected by state law. ??If your state requires such protection, then the state law prohibits you from making any further disclosure of the information without the specific written consent of the person to whom it pertains, or as otherwise permitted by law. A general authorization for the release of medical or other information is NOT sufficient for this purpose. ?? For additional information please refer to http://education.PROnoise/faq/XCT037 (This link is being provided for informational/ educational purposes only.) The performance of this assay has not been clinically validated in patients less than 2 years old. Blood Blood / Unknown 08/21/2022 1 :50 PM EDT 08/21/2022 1:50 PM EDT Clau Goodman PA-C LAB - BLOOD DRAW Final Resul t [employer] [address] [address], [employer] [facility] [address] [address] from Last 3 Months or Most Recently Relevant to Health Maintenance Insurance [facility] Care Teams Manager Loss Prevention Relationship Specialty Start Date End Date Clau Goodman PA-C [address] [place] [id number] PCP - General Internal Medicine 07/17/22
--- OUTSIDE RECORDS SUMMARY | 2025-03-03 09:49 | XMS_ITS | Encounter Summary ---
Author Organization [facility] Address [address] [place] [address] Care Team Providers Care Manager Cardiology Name Role Phone Clau Goodman PA-C Primary Care Provider + [phone] Reason for Visit * Reason Comments Follow Up Encounter Details Date Type Department Care Team (Latest Contact Info) Description 02/28/2025 2:20 PM EDT Telemedicine Visit [facility] [address] [place] [id number] Joel Blanc PA-C [address] [place] [address] Subacute sinusitis, unspecified location (Primary Dx) Social History Tobacco Use Types Packs/Day Years [...] on file documented as of this encounter Progress Notes * Joel Blanc PA-C - 02/28/2025 2:20 PM EDT The following visit was conducted via Audio only. I educated the patient on the terms of telehealthand the patient verbally consented to this telemedicine visit. The patient was identified using their Name and I identified myself as Joel Blanc PA-C from [facility]. It was conducted in a private space to protect HIPPA sensitive information. Precautions were taken to provide confidentiality and security and patient was made aware of privacy considerations. The patient was notified that the services were being provided from [facility]. The patient was notified that they can see a clinician in-person in the event of an emergency or if otherwise needed. Subjective: Interpreting services: Provider speaks patient's preferred language. HPI: Chris Morales is a 50 year old male who calls for ongoing pressure in forehead, nose, runny nose, sinusitis for a while now- requesting medications/imaging. Symptoms started x1 month ago. Flonase and Zyrtec not effective. Denies fever. He also feels some light headedness/dizziness. States the cold weather makes him dizzy. Takes Meclizine for this with good effect. Problem List: Patient Active Problem List Diagnosis NICOLETTE on CPAP CUNNINGHAM (nonalcoholic steatohepatitis) Essential hypertension Hx of hematuria Chest pain Costochondral pain- please see notes Tietze syndrome- see notes Controlled type 2 diabetes mellitus without complication, without long-term current use of insulin ([facility]) Mixed hyperlipidemia Colon cancer screening Malignant neoplasm of urinary bladder ([facility]) Medications: Current Outpatient Medications Medication Sig Dispense Refill baclofen 20 mg tablet Take 1 Tablet by mouth 3 (three) times daily 180 Tablet 0 lidocaine (LIDODERM) 5 % patch Place 1 Patch onto the skin once daily (every 24 hours) Place 1 patch to clean/dry/hairless skin where most painful and leave on for 12 hours. Remove patch and wait 12 hours before putting on a new patch. 30 Patch 2 cetirizine (ZYRTEC) 10 mg tablet TAKE 1 TABLET BY MOUTH DAILY 90 Tablet 0 acetaminophen (TYLENOL 8 HOUR) 650 mg CR tablet Take 1 Tablet by mouth every 8 (eight) hours as needed for pain 30 Tablet 0 fluticasone (FLONASE) 50 mcg/actuation nasal spray Place 1 [place] in both nostrils once daily 16 g 1 ibuprofen 800 mg tablet Take 1 Tablet by mouth 3 (three) times daily as needed for headaches or moderate pain 30 Tablet 2 lisinopriL 20 mg tablet TAKE 1 TABLET BY MOUTH DAILY 90 Tablet 2 meclizine [address] 1 Tablet into mouth, chew and swallow 3 (three) times daily as needed for nausea 90 Tablet 0 atorvastatin (LIPITOR) 10 mg tablet Take 1 Tablet by mouth nightly at bedtime Indications: high cholesterol 90 Tablet 1 gabapentin (NEURONTIN) 100 mg capsule Take 1 Capsule by mouth 3 (three) times daily 90 Capsule 3 silver sulfADIAZINE (SILVADENE) 1 % cream Apply topically once daily 20 g 0 traMADoL (ULTRAM) 50 mg tablet Take 1 Tablet by mouth every 6 (six) hours as needed for pain 15 Tablet 0 BANOPHEN 50 mg capsule TAKE 1 CAPSULE BY MOUTH AT BEDTIME NEEDED FOR RHINITIS OR SLEEP 90 Capsule 0 No current facility-administered medications for this visit. Depression screenin01/20/2025 2:03 PM Little interest or pleasure in doing things Not at all Feeling down, depressed or hopeless [include irritable if under 18] Not at all Trouble falling or staying asleep, or sleeping too much Not at all Feeling tired or having little energy Not at all Poor appetite or overeating Not at all Feeling bad about yourself - or that you are a failure or have let yourself or your family down Notat all Trouble concentrating on things, such as reading the newspaper or watching television? Not at all Moving or speaking so slowly that other people could have noticed? Or the opposite - being so fidgety or restless that you have been moving around a lot more than usual Not at all Thoughts you would be better off or of hurting yourself in some way Not at all If you checked off any problems, how difficult have these problems made it for you to do your work,take care of things at home, or get along with other people? Not difficult at all PHQ-9 Total Score (Auto Calculated) 0 Depression Severity: None-minimal Objective: PE: Physical exam not performed. Assessment/Plan: J01.90 Subacute sinusitis, unspecified location (primary encounter diagnosis) Plan : AMOXICILLIN 875 MG-POTASSIUM CLAVULANATE 125 MG TABLET - Take 1 Tablet by mouth 2 (two) times daily for 7 days - Patient understands and agrees with the plan of care. Questions answered. If any new or worseningsymptoms/ if symptoms do not improve as expected, patient may report to the ER or call 911. Contingency to seek urgent/emergent care discussed. documented in this encounter Plan of Treatment Upcoming Encounters Date Type Department Care Team (Late st Contact Info) Description 03/23/2025 9:20 AM EDT Office Visit [address] [phone] Clau Goodman PA-C [address] [place] [id number] documented as of this encounter Visit Diagnoses Diagnosis Subacute sinusitis, unspecified location- Primary documented in this encounter Additional Health Concerns Assessment Noted Time PHQ-9 Depression Total Score: 0 01/21/20 25 2:03 PM PDT documented as of this encounter Care Teams Manager Cardiology Relationship Specialty Start Date End Date Clau Goodman PA-C [address] [place] [id number] PCP - General Internal Medicine 07/17/22 documented as of this encounter
--- OUTSIDE RECORDS SUMMARY | 2025-03-03 09:49 | XMS_ITS | Clinical Summary ---
Author Organization [facility] [employer] [facility] Address [address] [place] [address] Phone Care Team Providers Care Psychotherapist Counselor Name Role Phone Clau Goodman Primary Care Provider Allergies No known active allergies Medications methocarbamoL (ROBAXIN) 500 mg tablet Take 1 Tablet by mouth as needed (pain). 10/17/2023 Active naproxen (NAPROSYN) 500 mg tablet Take 500 mg by mouth. 10/11/2020 Active lisinopriL (PRINIVIL,ZESTRI L) 20 mg tablet Take 1 tablet (20 mg total) by mouth 1 (one) time each day. Active Active Problems Problem Noted Date Diagnosed Date Controlled type 2 diabetes m ellitus without complication, without long-term current use of insulin ([facility] V[facility], [facility] V28) 11/18/2019 Chest pain 08/25/2019 Overview (09/28/2024): Last Assessment & Plan: The patient has a longstanding history of episodes of chest discomfort. His symptoms occur at rest and last for up to several days per episode. His symptoms are nonexertional in nature. Previously, he underwent a stress echocardiogram in January 2020 that was noted to be normal given that the patient did not have any chest pain with exertion and he did not have any EKG/echocardiographic changes with exercise. Furthermore, his LVEF was noted to be normal at rest. Given his continued symptoms, he underwent further testing with a cardiac CT scan in April 2022 that was noted to be normal as there was no evidence of any significant coronary artery disease. As such, the patient's symptoms are noncardiac in nature. The patient has been under evaluation with the pain management service at the [facility]. He has been noted to have costochondritis. The patient is currently scheduled to receive trigger point injections in early 2023. I encouraged the patient to continue to follow-up with the pain management service regarding his costochondritis. Assessment & Plan (10/11/2024 10:23 AM EST): Longstanding history of episodes of chest discomfort. In the past, he underwent a stress echocardiogram and cardiac CT scan which was noted to be normal with no evidence of significant coronary artery disease and therefore the patient's symptoms were deemed noncardiac in nature. He has been under evaluation with the pain management service at the [facility] and noted to have costochondritis status post trigger point injections this year. He will continue to follow with them. Patient's symptoms have been stable. He denies any recent episodes of chest discomfort or shortness of breath. He has been feeling well from a cardiac standpoint. Orders: ECG 12 lead Essential hypertension 06/15/2019 Overview (09/28/2024): Last Assessment & Plan: The patient has a history of arterial hypertension. The patient's blood pressure today was noted to be well controlled. We'll continue the current antihypertensive medication regimen. Assessment & Plan (10/11/2024 10:23 AM EST): Patient's blood pressure is stable today. Recently his lisinopril had been decreased. He will continue to monitor his blood pressures at home. Orders: ECG 12 lead CUNNINGHAM (nonalcoholic steatohepatitis) 06/15/2019 NICOLETTE on CPAP 06/15/2019 Overview (09/28/2024): 04/15/18 - Sleep study = moderately severe NICOLETTE Encounters Date Type Department Care Team Description 02/11/2025 12:00 PM EDT - 02/11/2025 11:59 PM EDT Hospital Encounter [facility] Xray [address] [place] [address] Dorsalgia, unspecified Discharge Disposition: Home or Self Care from Last 3 Months Medical History Medical History Date Comments Essential hypertension 06/15/2019 DX:Essent ial hypertension CUNNINGHAM (nonalcoholic steatohepatitis) 06/15/2019 DX:CUNNINGHAM (nonalcoholic steatohepatitis) Chest pain 08/25/2019 DX:Chest pain; C OMMENT: On exertion, while lifting Hx of hematuria 06/15/2019 DX:Hx of hematur ia Palpitations 11/09/2020 DX:Palpitations Social History Tobacco Use Types Packs/Day Years Used Date Smoking Tobacco: Never Smokeless Tobacco: Never Alcohol Use Standard Drinks/Week Comments No 0 (1 standard drink = 0.6 oz pur e alcohol) Sex and Gender Information Value Date Recorded Sex Assigned at Not on file Legal Sex Male 5:12 PM EST Gender Identity Not on file Sexual Orientation Not on file Obstetrics History Last Filed Vital Signs Vital Sign Reading Time Taken Comments Blood Pressure 100/72 10/11/2024 9:21 AM EST Pulse 58 10/11/2024 9:21 AM EST Temperature - - Respiratory Rate - - Oxygen Saturation 98% 10/11/2024 9:21 AM EST Inhaled Oxygen Concentration - - Weight 85.7 kg (189 lb) 10/11/2024 9:21 AM EST Height 172.7 cm (5' 8 ) 10/11/2024 9:21 AM EST Body Mass Index 28.74 10/11/2024 9:21 AM EST Plan of Treatment Health Maintenance Due Date Last Done Comments COVID-19 Vaccine (#1) 1978 Diabetes: Annual Foot Exam 1983 Diabetes: Annual Retina Eye Exam 1983 Hepatitis A Vaccines (1 of 2 - Risk 2-dose series) 01/06/1992 Hepatitis B Vaccines (1 of 3 - 19+ 3-dose series) 01/06/1992 Social Influencers of Health Screening 10/12/2022 Diabetes: Annual Urine Albumin-Creatinine Ratio (uACR) 03/19/2024 03/19/2023, 03/19/2023, 02/04/2020 Diabetes: Blood Sugar Control Test (HGBA1C) 01/30/2025 08/02/2024, 09/19/2023 Influenza Vaccine (Season Ended) 2025 08/05/2013 Diabetes: Annual GFR (Glomerular Filtration Rate) 08/27/2025 08/27/2024, 08/02/2024, 09/19/2023 Hypertension/CHF/CAD Annual BMP Blood Test 08/27/2025 08/27/2024, 08/02/2024, 09/19/2023 Depression Screening 01/20/2026 01/20/2025 Colorectal Cancer Screening: FIT-DNA (Cologuard) 05/12/2026 05/12/2023 DTaP,Tdap,and Td Vaccines (2 - Td or Tdap) 08/20/2027 08/20/2017 Cholesterol Screening (Lipid Panel) 08/02/2029 08/02/2024, 03/19/2023, 04/24/2021, Additional history exists HIV Screening Completed 08/21/2022 Hepatitis C Screening Completed 08/21/2022, 022 Pneumococcal Vaccine: 50+ Years Completed 03/19/2023, 06/24/2018 Pneumococcal Vaccine: Pediatrics (0 to 5 Years) and At-Risk Patients (6 to 64 Years) Completed 03/19/2023, 06/24/2018 Zoster Vaccines Completed 08/05/2023, 03/19/2023 HIB Vaccines Aged Out No longer eligi ble based on patient's age to complete this topic HPV Vaccines Aged Out No longer eligi ble based on patient's age to complete this topic IPV Vaccines Aged Out No longer eligi ble based on patient's age to complete this topic MMR Vaccines Aged Out No longer eligi ble based on patient's age to complete this topic Meningococcal ACWY Vaccine Aged Out N o longer eligible based on patient's age to complete this topic Meningococcal B Vaccine Aged Out No l onger eligible based on patient's age to complete this topic RSV Immunization Patients Under 20 months Aged Out No longer eligible based on patient's age to complete this topic Varicella Vaccines Aged Out No longer eligible based on patient's age to complete this topic Procedures Procedure Name Priority Date/Time Associated Diagnosis Comments XR CERVICAL SPINE 2-3 VIEWS Routine 02/11/2025 12:11 PM EDT Dorsalgia, unspecified HM ANNUAL BMP BLOOD TEST Routine 09/19/2023 HEMOGLOBIN A1C Routine 09/19/2023 URINE ALBUMIN CREATININE RATIO Routine 03/19/2023 LIPID PANEL Routine 03/19/2023 HEPATITIS C SCREENING Routine 08/21/2022 HIV SCREENING Routine 08/21/2022 from Last 3 Months or Most Recently Relevant to Health Maintenance Results * XR Cervical Spine 2-3 Views (02/11/2025 12:11 PM EDT) Anatomical Region Laterality Modality Spine, C-spine Radiographic Paulette ging 02/11/2025 12:2 9 PM EDT Impressions 02/11/2025 12:31 PM EDT No acute abnormality. No significant disc disease. Correlate with physical exam findings for any enlargement of the right lobe thyroid. -------- FINAL REPORT -------- Dictated By: Alok Prieto Dictated Date: 02/11/2025 12:29 ET Assigned Physician: Alok Prieto Reviewed and Electronically Signed By: Alok Prieto Signed Date: 02/11/2025 12:31 ET Workstation ID: [id number] Transcribed By: Self Edit Transcribed Date: 02/11/2025 12:29 ET Narrative 02/11/2025 12:31 PM EDT EXAMINATION: CERVICAL SPINE CLINICAL INFORMATION: Chronic overuse symptoms. Cervical pain in the midline COMPARISON: None. TECHNIQUE: 3 views of the cervical spine FINDINGS: The anatomy inferior to mid C7 and the cervicothoracic junction are partially obscured in the lateral projection. In the frontal projection the trachea slightly deviated to the left of midline at the thoracic inlet. Correlate with physical exam findings for thyroid enlargement. No prevertebral soft tissue swelling. No fracture, subluxation, focal lesion or loss of volume. No disc narrowing. No suspicious abnormality in the visualized lung apices. Procedure Note Alok Prieto MD - 02/11/2025 EXAMINATION: CERVICAL SPINE CLINICAL INFORMATION: Chronic overuse symptoms. Cervical pain in the midline COMPARISON: None. TECHNIQUE: 3 views of the cervical spine FINDINGS: The anatomy inferior to mid C7 and the cervicothoracic junction arepartially obscured in the lateral projection. In the frontal projection the trachea slightly deviated to the left ofmidline at the thoracic inlet. Correlate with physical exam findings forthyroid enlargement. No prevertebral soft tissue swelling. No fracture, subluxation, focal lesion or loss of volume. No discnarrowing. No suspicious abnormality in the visualized lung apices. IMPRESSION: No acute abnormality. No significant disc disease. Correlate with physicalexam findings for any enlargement of the right lobe thyroid. -------- FINAL REPORT -------- Dictated By: Alok Prieto Dictated Date: 02/11/2025 12:29 ET Assigned Physician: Alok Prieto Reviewed and Electronically Signed By: Alok Prieto Signed Date: 02/11/2025 12:31 ET Workstation ID: [id number] Transcribed By: Self Edit Transcribed Date: 02/11/2025 12:29 ET Result [facility] Josue Cabrera NUT TAPPER IMG XR PROCEDURES Final Res ult * Annual BMP Blood Test (09/19/2023) [facility] Annual BMP Blood Test Abstracted Result [facility] Provider HEALTH MAINTENANCE Final Result * Hemoglobin A1c (09/19/2023) [facility] Hemoglobin A1C 0.0 % Comment:No Interpretation, A bstracted Blood Venous blood specimen / Unknown Result [facility] Provider LAB BLOOD ORDERABLES Olya l Result * Urine Albumin Creatinine Ratio (03/19/2023) [facility] Urine Albumin Creatinine Ratio Abstracted Result [facility] Provider HEALTH MAINTENANCE Final Result * Lipid panel (03/19/2023) [facility] LDL/HDL Ratio 0 Comment:No Interpretation, A bstracted Triglycerides 0 mg/dL Comment:No Interpretation, A bstracted Cholesterol 0 mg/dL Comment:No Interpretation, A bstracted HDL 0 mg/dL Comment:No Interpretation, A bstracted LDL Cholesterol 0 mg/dL Comment:No Interpretation, A bstracted Blood Venous blood specimen / Unknown Historical Provider LAB BLOOD ORDERABLES Olya l Result * HIV Screening (08/21/2022) HIV Screening Abstracted Historical Provider HEALTH MAINTENANCE Final Result * Hepatitis C Screening (08/21/2022) Hepatitis C Screening Abstracted Historical Provider HEALTH MAINTENANCE Final Result from Last 3 Months or Most Recently Relevant to Health Maintenance Insurance MEDICAID - [place] Care Teams Psychotherapist Counselor Relationship Specialty Start Date End Date Clau Goodman PA [address] [place] [address] PCP - General 10/17/23
== END 2025-03-03 09:08 | disposition home or self-care (01) ==
LOC: HO.US 09:07
PROVIDERS: PCP Physician Assistant; Visit Provider Urology
DX: N20.0 Calculus of kidney (principal)
CPT/HCPCS: 76775

== ENCOUNTER → 2025-03-03 09:12 | Outpatient (BNV) | payer MEDICAID, SELFPAY | PROVIDERS: PCP Physician Assistant; Visit Provider Specialist | DX: N28.1 Cyst of kidney, acquired (principal) | CPT/HCPCS: 76775 ==

== ENCOUNTER 2025-03-22 14:42 | Outpatient (REF) | payer MEDICAID, SELFPAY ==
[2025-03-22 16:11] LABS: Urine Cytology See Pathology rpt
== END 2025-03-22 14:43 | disposition home or self-care (01) ==
LOC: HO.LAB 14:42
PROVIDERS: PCP Physician Assistant; Visit Provider Urology
DX: C67.9 Malignant neoplasm of bladder, unspecified (principal)
CPT/HCPCS: 88112; 99212

== ENCOUNTER 2025-03-22 14:42 | Outpatient (AMB) | payer MEDICAID, SELFPAY ==
--- NOTE | 2025-03-22 14:46 | MHC.OFFVIS ---
Intake Visit Reasons: 1yr/US Intake Note: Patient is present for 1Y/US Urology Medication:NONE Antibiotic Allergy:NONE Blood Thinner:NONE Cigarette Catcher Required: No Allergies No Known Allergies Allergy (Verified 03/22/25 14:48) HPI Comments Details: Chris is a pleasant male. He is a patient of Dr. Goodman. He is seen for the following urologic conditions - bladder cancer Montenegrin translation provided in office by qualified medical lab technologist Renal ultrasound normal PSA 03/26 1.2 Twelve month follow-up check cystoscopy Bladder cancer Per patient has prior history of bladder cancer Per hospital record 2018 had procedure for right distal ureteric stricture Cystoscopy 02/23 NAD [facility] Medical History Bladder cancer Tietze syndrome HTN (hypertension) Family History Other Family history non-contributory Social History (Updated 09/13/24 @ 21:33 by Teressa Ko DO) Alcohol intake: never Patient Tobacco Use Status: Never used Tobacco Review of Systems Const Denies chills and Denies fever(s) Card Reports no additional complaints and Denies syncope Resp Denies cough GI Denies abdominal pain and Denies heartburn Reports as per HPI and Denies change in libido Neuro Denies syncope Psych Denies change in libido Endo Denies change in libido Physical Exam Const General: cooperative, healthy appearing, comfortable and no acute distress Orientation/consciousness: patient oriented x3 HEENT Face and sinus: Yes normal facial exam Mouth: moist mucous membranes Neck Neck: Yes normal visual inspection, Yes full ROM and Yes trachea midline Chest Chest palpation & inspection: normal inspection of the chest Resp Effort & Inspection: normal respiratory effort, able to speak in complete sentences and no respiratory distress GI Inspection: Yes normal to inspection Back/Spine/Pelvis Cervical Spine: normal cervical lordosis Thoracic/Lumbar Spine: thoracic and lumbar spine normal to inspection Skin General skin exam: no rashes or lesions noted Neuro General: patient oriented x3, gait normal, tone normal and moves all extremities Extrem General: Yes normal to inspection and Yes capillary refill normal Assessment & Plan Assessment & Plan (1) Bladder cancer: Code(s): C67.9 - Malignant neoplasm of bladder, unspecified Category: Medical (2) Nephrolithiasis: Code(s): N20.0 - Calculus of kidney Category: Medical Plan Twelve month follow-up check cysto office Orders: Orders Urine Cytology Today C67.9 - Malignant neoplasm of bladder, unspecified AMB Urinalysis Automated Today Z13.9 - Encounter for screening, unspecified Patient Instructions: This note is constructed using voice recognition software. While every effort has been made to ensure accuracy corporate treasury analyst errors may have been included. Imaging studies, laboratory and physical exam results were discussed and reviewed in detail. No major barriers to patient understanding were identified. An opportunity to ask questions regarding the treatment plan was provided. All questions were answered. The patient expressed understanding and agreement with the above treatment plan. The patient is aware they should contact our office by phone for worsening of their current condition or the appearance of new urologic symptoms. Compliance is encouraged with any medications and followup testing that is ordered. It is a privilege to participate in the urologic care of your patient. If you have any questions or concerns regarding treatment for the above conditions, or other urologic issues, please do not hesitate to contact me. The office telephone contact is [phone]. Sincerely, Dr Matthieu Cam MD, [facility] - Urology Compassionate Specialist Care for the Genitourinary System Coding Level of Care Code Est Pt Level 4 (73656) Diagnoses Bladder cancer C67.9 Nephrolithiasis N20.0
--- OUTSIDE RECORDS SUMMARY | 2025-03-22 16:01 | XMS_ITS | Encounter Summary ---
Author Organization [facility] Address [address] [place] [address] Care Team Providers Care Armored Truck Driver Name Role Phone Clau Goodman PA-C Primary Care Provider [phone] Encounter Details Date Type Department Care Team ([facility] st Contact Info) Description 01/28/2025 Results Follow-Up [facility] [address] [place] [phone] Clau Goodman PA-C [address] [place] [address] REFERRAL TO SLEEP DISORDERS CLINIC Social History Tobacco Use Types Packs/Day Years [...] Description 03/23/2025 9:20 AM EDT Office Visit [facility] [address] [place] [address] Clau Goodman PA-C [address] [place] [address] documented as of this encounter Visit Diagnoses Not on filedocumented in this encounter Additional Health Concerns Assessment Noted Time PHQ-9 Depression Total Score: 0 01/21/20 25 2:03 PM PDT documented as of this encounter Care Teams Armored Truck Driver Relationship Specialty Start Date End Date Clau Goodman PA-C [address] [place] [address] PCP - General Internal Medicine 07/17/22 documented as of this encounter
--- OUTSIDE RECORDS SUMMARY | 2025-03-22 16:02 | XMS_ITS | Clinical Summary ---
Author Organization [facility] Address [address] [place] [address] Care Team Providers Care Tile Decorator Name Role Phone Clau Goodman PA-C Primary Care Provider [phone] Source Comments PLEASE NOTE, if this patient [...] NEEDED FOR RHINITIS OR SLEEP 90 Capsule 3 Active traMADoL (ULTRAM) 50 mg tabletIndication s:Left shoulder pain, unspecified chronicity,Angella e syndrome Take 1 Tablet by mouth every 6 (six) hours as needed for pain 15 Tablet 3 Active silver sulfADIAZINE (SILVADENE) 1 % creamIndications :Superficial burn of left forearm, initial encounter Apply topically once daily 20 g 3 Active gabapentin (NEURONTIN) 100 mg capsuleIndicatio ns:Tietze syndrome,Costoch ondral pain Take 1 Capsule by mouth 3 (three) times daily 90 Capsule 3 3 Active atorvastatin (LIPITOR) 10 mg tabletIndication s:hypercholester olemia Take 1 Tablet by mouth nightly at bedtime Indications: high cholesterol 90 Tablet 1 4 Active meclizine 25 mg chewable tabletIndication s:Dizziness Place 1 Tablet into mouth, chew and swallow 3 (three) times daily as needed for nausea 90 Tablet 4 Active lisinopriL 20 mg tabletIndication s:Essential hypertension TAKE 1 TABLET BY MOUTH DAILY 90 Tablet 2 4 Active ibuprofen 800 mg tabletIndication s:Viral upper respiratory tract infection,Acute rhinitis Take 1 Tablet by mouth 3 (three) times daily as needed for headaches or moderate pain 30 Tablet 2 5 Active fluticasone (FLONASE) 50 mcg/actuation nasal sprayIndications :Acute viral sinusitis Place 1 [place] in both nostrils once daily 16 g 1 5 Active acetaminophen (TYLENOL 8 HOUR) 650 mg CR tabletIndication s:Headaches Take 1 Tablet by mouth every 8 (eight) hours as needed for pain 30 Tablet 5 Active cetirizine (ZYRTEC) 10 mg tabletIndication s:Headaches,Acut e rhinitis TAKE 1 TABLET BY MOUTH DAILY 90 Tablet 5 Active lidocaine (LIDODERM) 5 % patchIndications :Upper back pain Place 1 Patch onto the skin once daily (every 24 hours) Place 1 patch to clean/dry/hairl ess skin where most painful and leave on for 12 hours. Remove patch and wait 12 hours before putting on a new patch. 30 Patch 2 5 Active baclofen 20 mg tabletIndication s:Upper back pain Take 1 Tablet by mouth 3 (three) times daily 180 Tablet 5 Active amoxicillin-pot clavulanate (AUGMENTIN) 875-125 mg per tabletIndication s:Subacute sinusitis, unspecified location Take 1 Tablet by mouth 2 (two) times daily for 7 days 14 Tablet 5 025 Active Problems Problem Noted Date Diagnosed Date Controlled type 2 diabetes m ellitus without complication, without long-term current use of insulin ([facility]) 03/19/2023 Mixed hyperlipidemia 03/19/2023 Colon cancer screening 03/19/2023 Malignant neoplasm of urinary bladder ([facility]) 03/19/2023 Overview (03/19/2023): Following up with [facility] urologist group at [place] with Matthieu Cam MD. Tietze syndrome- see notes 05/31/2022 Overview (05/31/2022): May 2022: Pt was referred for a functional capacity test at [facility] to determine degree of disability. May 2022 [facility] Pain management Mr. Chris Morales is 47 [...] while he lifting those objects. 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 Myofascial pain. 46 y/o M with costochondral/myofascial pain s/p trigger point injections which provided him significant pain relief, but have eventually worn off. Mr. Morales is frustrated because he feels the effect of the injections he received was limited by the fact that he had to return to his work at [employer] which requires him to lift and move a variety of heavy boxes. Today, he is seeking a note which would encourage [employer] to change his assignment to something with [...] other GI mediated causes of his pain. [facility] PAIN MANAGEMENT 01/2021 Costochondritis. 46yo male without [...] referred for a functional capacity test at [facility] to determine degree of disability. May 2022 [facility] Pain management Mr. Chris Morales is 47 [...] while he lifting those objects. 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 Myofascial pain. 46 y/o M with costochondral/myofascial pain s/p trigger point injections which provided him significant pain relief, but have eventually worn off. Mr. Morales is frustrated because he feels the effect of the injections he received was limited by the fact that he had to return to his work at [employer] which requires him to lift and move a variety of heavy boxes. Today, he is seeking a note which would encourage [employer] to change his assignment to something with [...] 08/25/2019 Overview (05/27/2022): 08/23/19 - Seen at [facility] c/o CP. Troponin and CXR neg. EKG [...] Description 02/28/2025 2:20 PM EDT Telemedicine Visit [address] [address] Joel Blanc PA-C Subacute sinusitis, unspecified location (Primary Dx) 02/11/2025 11:20 AM EDT Office Visit [address] [address] Josue Cabrera FNP-C Martinez, Celestia Upper back pain (Primary Dx) 01/28/2025 Results Follow-Up [address] [address] Clau Goodman PA-C REFERRAL TO SLEEP DISORDERS CLINIC 01/20/2025 2:00 PM EDT Office Visit [address] [phone] Joel Blanc PA-C Acute viral sinusitis (Primary Dx); Headaches from Last 3 Months Immunizations Immunization Administration Dates Next Due PNEUMOCOCCAL CONJUGATE PCV 20 (Prevnar) 03/19/20 23 PNEUMOCOCCAL POLYSACCHARIDE PPV23 (Pneumovax 23) 06/24/2018 [facility] State Funded Flu Vaccine 08/05/2013 TDAP [...] Description 03/23/2025 9:20 AM EDT Office Visit [address] [address] Clau Goodman PA-C [address] [place] [address], [place] [address] Health Maintenance Due Date Last Done Comments Imm-Hepatitis B (1 of 3 - 19+ 3-dose series) 01/06/1992 CT Colonography 2018 Colonoscopy 2018 Flexible Sigmoidoscopy 2018 Annual Wellness (Adult): Indicated (All Coverage) 03/19/2024 03/19/2023, 06/15/2019 Urine Albumin Creatinine Ratio Screening 03/19/2024 03/19/2023, 02/04/2020 Dental Examination 03/21/2024 03/19/2023 (M anaged by Outside Provider) FIT/gFOBT 05/12/2024 05/12/2023 [id number]-[id number] ( season) 2024 Anxiety Screening 09/19/2024 09/19/2023 Diabetes Foot Exam 12/26/2024 12/26/2023 Diabetes HbA1c [...] Procedure Name Priority Date/Time Associated Diagnosis Comments IMAGING SCANNED DOCUMENT 03/03/2025 3:00 AM EDT IMAGING SCANNED DOCUMENT 03/03/2025 3:00 AM EDT RADEX SPINE CERVICAL 2 OR 3 VIEWS [...] complication, without long-term current use of insulin ([facility]) Essential hypertension HGA1C W/EAG Routine 08/02/2024 11:00 AM EDT Controlled type 2 diabetes mellitus without complication, without long-term current use of insulin ([facility]) COLOGUARD Routine 05/12/2023 3:00 AM EDT Colon cancer screening MICROALBUMIN/CREATINI NE RATIO, URINE, RANDOM Routine 03/19/2023 9:49 AM EDT Controlled type 2 diabetes mellitus without complication, without long-term current use of insulin ([facility]) HIV 1/2 AG & AB W/RFLX (4TH GEN) Routine 08/21/2022 1:50 PM EDT Routine lab draw HEPATITIS C AB W/RFLX HCV RNA, QT, RT PCR Routine 08/21/2022 1:50 PM EDT Routine lab draw from Last 3 Months or Most Recently Relevant to Health Maintenance Results * IMAGING SCANNED DOCUMENT (03/03/2025 3:00 AM EDT) Only the most recent of2 resultswithin the time period is included. 03/03/2025 3:00 AM EDT Clau Goodman PA-C SCAN IMAGING Final Result * RADEX SPINE CERVICAL 2 OR 3 VIEWS (02/11/2025 3:00 AM EDT) 02/11/2025 3:00 AM EDT Josue Cabrera PERCUSSION INSTRUMENT REPAIRER-Mary IMG XRAY Final Res ult [facility] Corporate Office [address], [address] [place] [address], [place] [phone] * REFERRAL TO SLEEP DISORDERS CLINIC (01/24/2025 3:00 AM EDT) 01/24/2025 3:00 AM EDT Clau Goodman PA-C REFERRAL Final Result * EYE EXAM (10/18/2024 3:00 AM EST) 10/18/2024 3:00 AM EST Clau Goodman PA-C OTHER Edited Resul t - Final * (ABNORMAL) COMPREHENSIVE METABOLIC PANEL (08/27/2024 12:17 PM EDT) Pathologist [facility] GLUCOSE 130 65 - 139 mg/dL [facility] Comment: ?Non-fasting reference interval UREA NITROGEN (BUN) 16 7 - 25 mg/dL [facility] CREATININE (blood) 0.82 0.70 - 1.30 mg/dL [facility] EGFR 106 > OR = 60 mL/min/1. 73m2 [facility] BUN/CREATININE RATIO SEE NOTE: [facility] Comment: ?? Not Reported: BUN and Creatinine are within ?? reference range. ? SODIUM 136 135 - 146 mmol/L [facility] POTASSIUM 4.2 3.5 - 5.3 mmol/L [facility] CHLORIDE 102 98 - 110 mmol/L [place] [facility] CARBON DIOXIDE 27 20 - 32 mmol/L [facility] CALCIUM 9.5 8.6 - 10.3 mg/dL [place] [facility] PROTEIN, TOTAL 7.2 6.1 - 8.1 g/dL [facility] ALBUMIN 4.6 3.6 - 5.1 g/dL [facility] GLOBULIN 2.6 1.9 - 3.7 g/dL (calc) [facility] ALBUMIN/GLOBULI N RATIO 1.8 1.0 - 2.5 (calc) [facility] BILIRUBIN, TOTAL 0.4 0.2 - 1.2 mg/dL [facility] ALKALINE PHOSPHATASE 32(L) 35 - 144 U/L [facility] AST 17 10 - 35 U/L [facility] ALT 29 9 - 46 U/L [facility] Blood Blood / Unknown 08/27/2024 1 2:17 PM EDT 08/27/2024 12:18 PM EDT Narrative [facility] [facility] - 08/28/2024 5:47 AM EDT FASTING:NO Henry Medrano PA-C LAB - BLOOD DRAW Final Result [facility] [address] [address], [place] [address] [address] * (ABNORMAL) HGA1C W/EAG (08/02/2024 11:00 AM EDT) HEMOGLOBIN A1C 6.1(H) <5.7 % of total Hgb [facility] Comment: For someone without known diabetes, a [...] diabetes for children. EAG (MG/DL) 128 mg/dL [facility] EAG (MMOL/L) 7.1 mmol/L [facility] Blood Blood / Unknown 08/02/2024 1 1:00 AM EDT 08/02/2024 11:00 AM EDT Narrative [facility] [employer] - 08/03/2024 9:21 AM EDT FASTING:YES Clau Goodman PA-C LAB - BLOOD DRAW Edited Resu lt - Final [facility] [address] [address], [facility] [place] [address] [place] [address] * (ABNORMAL) LIPIDS W RFLX TO DIRECT LDL (08/02/2024 11:00 AM EDT) CHOLESTEROL, TOTAL 156 <200 mg/dL [place] [facility] HDL CHOLESTEROL 30(L) > OR = 40 mg/dL [facility] TRIGLYCERIDES 231(H) <150 mg/dL [facility] Comment: If a non-fasting specimen was collected, consider repeat triglyceride testing on a fasting specimen if clinically indicated. Jeffrey et al. J. of Clin. Lipidol. 2015;9:129-169. LDL-CHOLESTEROL 94 99 mg/dL (calc) [facility] Comment: Reference range: <100 Desirable range <100 mg/dL for primary prevention; ?? <70 mg/dL for patients with CHD or diabetic patients with > or = 2 CHD risk factors. LDL-C is now calculated using the Pancho-Jose calculation, which is a validated novel method providing better accuracy than the Friedewald equation in the estimation of LDL-C. Pancho CORLEY et al. LILLIAM. 2013;310(19): 7768-8235 (http://education.Devign Lab.Liveyearbook/faq/KZC340) CHOL/HDLC RATIO 5.2(H) <5.0 (calc) [facility] NON-HDL CHOLESTEROL 126 <130 mg/dL (calc) [facility] Comment: For patients with diabetes plus 1 major ASCVD risk factor, treating to a non-HDL-C goal of <100 mg/dL (LDL-C of <70 mg/dL) is considered a therapeutic option. Blood Blood / Unknown 08/02/2024 1 1:00 AM EDT 08/02/2024 11:00 AM EDT Narrative [employer] [facility] - 08/03/2024 9:21 AM EDT FASTING:YES Clau Goodman PA-C LAB - BLOOD DRAW Final Resul t Performing Organization Address City/[facility]/ZIP Co de Phone Number [employer] [facility] [address] [address], [facility] [facility] [address] [place] [address] * COLOGUARD (05/12/2023 3:00 AM EDT) Stool Stool specimen / Unknown 05/12/2023 3:00 AM EDT [employer] LAB BODY FLUIDS AND STOOLS A MBULATORY Edited Result - Final Performing Organization Address City/[facility] Co de Phone Number [facility] [address] [place] [address], [address] [facility] [id number] [place] [address], * MICROALBUMIN/CREATININE RATIO, URINE, RANDOM (03/19/2023 9:49 AM EDT) CREATININE, RANDOM URINE 125 20 - 320 mg/dL [facility] MICROALBUMIN 0.2 mg/dL [facility] Comment: Reference Range Not established MICROALBUMIN/CREA TININE RATIO, RANDOM URINE 2 <30 mcg/mg creat [facility] Comment: The ADA defines abnormalities in albumin [...] AM EDT 03/19/2023 9:49 AM EDT Clau REED-C LAB URINE AMBULATORY Final R esult [facility] [address] [address], [place] [address] [address] * Hep C Antibody with Reflex HCV RNA (08/21/2022 1:50 PM EDT) HEPATITIS C ANTIBODY NON-REACT SEAN NON-REACT SEAN [place] [facility] SIGNAL TO CUT-OFF 0.09 <1.00 [facility] Comment: HCV antibody was non-reactive. There is no laboratory evidence of HCV infection. In most cases, no further action is required. However, if recent HCV exposure is suspected, a test for HCV RNA (test code 29264) is suggested. For additional information please refer to http://education.LaFourchette/faq/GNK39l1 (This link is being provided for informational/ educational purposes only.) Blood Blood / Unknown 08/21/2022 1 :50 PM EDT 08/21/2022 1:50 PM EDT Clau Goodman PA-C LAB - BLOOD DRAW Edited Resu lt - Final Performing Organization Address City/[facility]/ZIP Co de Phone Number [facility] [facility] [address] [address], [place] [address],[place] [address] * HIV Ag & Ab with Reflex Western Blot (08/21/2022 1:50 PM EDT) HIV AG/AB, 4TH GEN NON-REAC TIVE NON-REAC TIVE [place] [facility] Comment: HIV-1 antigen and HIV-1/HIV-2 antibodies were [...] ?? For additional information please refer to http://education.LaFourchette/faq/EXJ198 (This link is being provided for informational/ educational purposes only.) The performance of this assay has not been clinically validated in patients less than 2 years old. Blood Blood / Unknown 08/21/2022 1 :50 PM EDT 08/21/2022 1:50 PM EDT us Clau Goodman PA-C LAB - BLOOD DRAW Final Resul t [facility] [place] [facility] [address] [address], [facility] [address] [address] from Last 3 Months or Most Recently Relevant to Health Maintenance Insurance [facility] Care Teams Tile Decorator Relationship Specialty Start Date End Date Clau Goodman PA-C [address] [place] [address] PCP - General Internal Medicine 07/17/22
--- OUTSIDE RECORDS SUMMARY | 2025-03-22 16:02 | XMS_ITS | Clinical Summary ---
Author Organization [facility] Address [address] [place] [address] Phone Care Team Providers Care Skip Pit Worker Name Role Phone Clau Goodman Primary Care [...] complication, without long-term current use of insulin ([facility] V24, [facility] V28) 11/18/2019 Chest pain 08/25/2019 Overview (09/28/2024): [...] with the pain management service at the [facility]. He has been noted to have [...] with the pain management service at the [facility] and noted to have costochondritis status [...] - 02/11/2025 11:59 PM EDT Hospital Encounter [facility] Xray [address] [place] [address] Dorsalgia, unspecified Discharge Disposition: Home [...] Signed Date: 02/11/2025 12:31 ET Workstation ID: [id number] Transcribed By: Self Edit Transcribed Date: 02/11/2025 [...] Signed Date: 02/11/2025 12:31 ET Workstation ID: [id number] Transcribed By: Self Edit Transcribed Date: 02/11/2025 12:29 ET Result [facility] Josue Cabrera OCCUPATIONAL MEDICINE SPECIALIST IMG XR PROCEDURES Final Res ult * Annual BMP Blood Test (09/19/2023) [facility] Annual BMP Blood Test Abstracted Result [facility] Provider HEALTH MAINTENANCE Final Result * Hemoglobin A1c (09/19/2023) [facility] Hemoglobin A1C 0.0 % Comment:No Interpretation, A bstracted Blood Venous blood specimen / Unknown Result [facility] Provider LAB BLOOD ORDERABLES Olya l Result * Urine Albumin Creatinine Ratio (03/19/2023) [facility] Urine Albumin Creatinine Ratio Abstracted Result [facility] Provider HEALTH MAINTENANCE Final Result * Lipid panel (03/19/2023) [facility] LDL/HDL Ratio 0 Comment:No Interpretation, A bstracted [...] Maintenance Insurance MEDICAID - [place] Care Teams Skip Pit Worker Relationship Specialty Start Date End Date Clau Goodman PA [address] [place] [address] PCP - General 10/17/23
== END 2025-03-22 15:26 | disposition home or self-care (01) ==
LOC: HO.HUSH 14:43
PROVIDERS: PCP Physician Assistant; Visit Provider Urology
DX: C67.9 Malignant neoplasm of bladder, unspecified (principal); N20.0 Calculus of kidney
CPT/HCPCS: 99214

== ENCOUNTER → 2025-03-23 09:27 | Outpatient (BNV) | payer MEDICAID, SELFPAY | PROVIDERS: PCP Physician Assistant; Visit Provider Urology | DX: Z13.9 Encounter for screening, unspecified (principal) | CPT/HCPCS: 81003 ==